=== PATIENT | male | born 1950 | race Caucasian/White ===

== ENCOUNTER → 2017-05-09 | Outpatient (CLI) | payer OTHER ==
[~2017-05-09] MED LIST: AMLO2.5C PO; ATEN50TA8 PO; DRV100 PO; FENO48TA9 PO; GLC5 PO; GLCSR500 PO; ISOS30TA3 PO; LISI20TA PO; NRN600 PO; SIMV40TA2 PO
[2017-05-09 12:34] LABS: HEMATOCRIT 39.1 % (42-52); HEMOGLOBIN 13.4 g/dL (14.0-18.0); MEAN CELL VOLUME 93.1 fL (80-100); MEAN CORPUSCULAR HEMOGLOBIN 31.9 pg (25-34); MEAN CORPUSCULAR HGB CONC 34.3 g/dl (32-36); MEAN PLATELET VOLUME 11.4 fL (7.4-10.4); PLATELET COUNT 154 K/uL (130-400); RED CELL DISTRIBUTION WIDTH CV 13.4 % (11.5-14.5); RED CELL DISTRIBUTION WIDTH SD 45.2 fL (36.4-46.3); WHITE BLOOD COUNT 5.61 K/uL (4.8-10.8)
[2017-05-09 13:10] LABS: HEMOGLOBIN A1C 6.6 % (4.5-5.6)
[2017-05-09 13:16] LABS: ALBUMIN 3.8 gm/dl (3.4-5.0); ALT/SGPT 28 U/L (12-78); BLOOD UREA NITROGEN 27 mg/dl (7-18); CALCIUM 9.4 mg/dl (8.5-10.1); CARBON DIOXIDE 24 mmol/L (21-32); CHOLESTEROL 104 mg/dl (0-200); CREATININE 1.23 mg/dl (0.60-1.40); GLUCOSE 175 mg/dl (70-99); POTASSIUM 4.7 mmol/L (3.5-5.1); SODIUM 136 mmol/L (136-145)
[2017-05-09 13:27] LABS: ALKALINE PHOSPHATASE 104 U/L (45-117); AST/SGOT 14 U/L (15-37); LDL CHOLESTEROL CALCULATED 49 mg/dl; TOTAL PROTEIN 7.3 gm/dl (6.4-8.2)
== END | disposition home or self-care (01) ==
LOC: C.LABPBG 07:37
PROVIDERS: ATTEND Family Medicine
DX: E78.00 Pure hypercholesterolemia, unspecified (principal); I25.10 Atherosclerotic heart disease of native coronary artery without angina pectoris; E11.9 Type 2 diabetes mellitus without complications; I10 Essential (primary) hypertension

== ENCOUNTER 2018-05-17 03:26 | Inpatient (IN) ==
[2018-05-17 04:24] LABS: Basophils # (auto) 0.02 K/uL (0-0.2); Basophils % (auto) 0.3 %; Eosinophils # (auto) 0.21 K/uL (0-0.5); Hematocrit (blood only) 29.7 % (42-52); Hemoglobin 9.5 g/dL (14.0-18.0); Immature Granulocytes # (auto) 0.05 K/uL (0.00-0.02); Immature Granulocytes % (auto) 0.7 %; Lymphocytes # (auto) 1.66 K/uL (1.2-3.4); Lymphocytes % (auto) 23.9 %; Mean Corpuscular Volume 88.9 fL (80-100); Mean Platelet Volume 10.5 fL (7.4-10.4); Monocytes # (auto) 0.78 K/uL (0.11-0.59); Monocytes % (auto) 11.2 %; Neutrophils # (auto) 4.22 K/uL (1.4-6.5); Neutrophils % (auto) 60.9 %; Platelet Count 209 K/uL (130-400); RDW Standard Deviation 54.1 fL (36.4-46.3); Red Blood Count 3.34 M/uL (4.7-6.1); White Blood Count 6.94 K/uL (4.8-10.8)
[2018-05-17 04:32] LABS: Alanine Aminotransferase 12 U/L (12-78); Albumin Level 3.2 gm/dl (3.4-5.0); Aspartate Aminotransferase 12 U/L (15-37); BUN Creatinine Ratio 12.8 (10-20); Blood Urea Nitrogen 20 mg/dl (7-18); Calcium 8.9 mg/dl (8.5-10.1); Carbon Dioxide 22 mmol/L (21-32); Chloride 105 mmol/L (98-107); Creatinine Clr Calc Pharmacy 46.7 ml/min; Est GFR (African American) 52.6; Est GFR (Non-African American) 45.4; Glucose 216 mg/dl (70-99); Magnesium 1.7 mg/dl (1.8-2.4); Potassium 4.5 mmol/L (3.5-5.1); Sodium 134 mmol/L (136-145)
[2018-05-17 04:35] LABS: INR 1.2 (0.9-1.1); Partial Thromboplastin Time 27.7 Seconds (21.0-31.0); Prothrombin Time 12.4 Seconds (9.0-12.0)
[2018-05-17 04:37] LABS: Albumin Globulin Ratio 0.6 (0.9-2); Alkaline Phosphatase 147 U/L (45-117); Bilirubin,Total 0.5 mg/dl (0.2-1); Globulin 5.2 gm/dl (2.5-4.0); Total Protein 8.4 gm/dl (6.4-8.2); Troponin I < 0.015 ng/ml (0-0.045)
--- NOTE | 2018-05-17 06:48 | XRay Report ---
XR chest 1V portable CLINICAL HISTORY: Shortness of breath. COMPARISON STUDY: No previous studies for comparison. FINDINGS: There are median sternotomy wires and mediastinal surgical post. A 2.8 cm sclerotic lesion with narrow zone of transition within the proximal left humerus is indeterminate but probably benign. There is mild cardiomegaly without evidence for pulmonary edema. There is no pneumothorax or pleural effusion. No consolidation is identified. IMPRESSION: No acute cardiopulmonary findings. Electronically signed by: Allan Berrios M.D. 05/17/2018 6:47 AM
--- NOTE | 2018-05-17 07:00 | History & Physical Report ---
Date of Service May 17, 2018 Assessment & Plan (1) Right sided weakness: Right-sided weakness/left parietal lobe lesion-- The patient will be admitted to telemetry for serial cardiac enzymes, serial EKG's, cardiac rhythm monitoring and a 2-D echocardiogram with Dopplers. CT of the head without contrast, as read by [facility] as acute/subacute infarct versus underlying tumor with inability to rule out bleed into the tumor, all with surrounding cerebral edema. CKD limits use of dye. We will order MRI brain without contrast, and MRA of head and neck without contrast. Will gently rehydrate with IV fluids, and if creatinine improves enough will add dye testing later on. Case discussed with neurologist Dr. Wells, who will be consulted. Neurochecks per protocol. Aspirin 81 mg daily. Stroke protocol order set not initiated, as it is unclear whether this is a true stroke versus underlying tumor with surrounding edema. PT/OT will be consulted. Present on Admission?: Yes (2) 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: See above. Present on Admission?: Yes (3) Hypertension: Medications listed on profile include carvedilol 25 mg p.o. every morning, diltiazem 120 mg p.o. every morning and lisinopril 20 mg p.o. every afternoon. For now change carvedilol to 12.5 mg p.o. twice daily, hold diltiazem and lisinopril. Present on Admission?: Yes (4) Diabetes mellitus: Hold Januvia and metformin. Placed on Accu-Cheks before meals and at bedtime with NovoLog coverage for scale Present on Admission?: Yes (5) Hyperlipidemia LDL goal <70: Continue atorvastatin 40 mg in evening. Check a fasting lipid panel Present on Admission?: Yes (6) Acute kidney injury: Creatinine 1.54 upon admission, with range 1.23-2.12. Present on Admission?: Yes (7) Anemia: Receiving injections in outpatient setting with Dr. Lara. Present on Admission?: Yes History of Present Illness Chief Complaint: The patient presents to the emergency department with complaint of right hand and leg numbness and weakness worsening over the past 2 days. Primary Care Provider: Valerie Mullins, The patient is a 67-year-old male who presents to the emergency department with complaint of the development of right hand numbness 2 days ago, followed by weakness in that hand, and inability to write. The following day began to develop balance issues when trying to walk, with leaning toward the right, and felt as though his right leg was weak compared to left. He has had no difficulty with swallowing or speech, no difficulty with memory or recall, no difficulty with higher thought processes. He has never had symptoms like these in the past. He reports that he sees a physician at [facility], and yearly has tests of his carotid arteries and test for peripheral arterial disease, and all have been normal. He does not report that he gets periodic injections with Dr. Lara for anemia. Allergies Allergy/AdvReac Type Severity Reaction Status Date / Time Penicillins Allergy Intermediate HIVES Verified 05/25/18 10:46 Home Medications Home Medications Medication Instructions Recorded Confirmed Type Januvia 50 mg PO QAM 05/17/18 05/25/18 History atorvastatin 40 mg PO QPM 05/17/18 05/25/18 History lisinopril 20 mg PO QPM 05/17/18 05/25/18 History carvedilol 12.5 mg PO BID #0 tab 05/19/18 05/25/18 Rx dexamethasone [Decadron] 4 mg PO QID #56 tab 05/19/18 05/25/18 Rx insulin glargine [Lantus Solostar 30 unit SC QAM #15 ml 05/19/18 05/25/18 Rx U-100 Insulin] pantoprazole 40 mg PO DAILY #30 tab 05/19/18 05/25/18 Rx pen needle, diabetic [Pen Needle] #30 ea 05/19/18 05/25/18 Rx Past Med/Surg History Medical History Acute kidney injury Anemia Anemia Brain lesion Cancer Cerebrovascular accident R sided weakness more likely due to swelling from brain tumors Coronary artery disease Diabetes Dyslipidemia Esophageal mass HTN (hypertension) Heart disease Surgical History S/P triple vessel bypass Family History Other Cancer Diabetes Heart disease Hypertension Kidney disease Seizure Social History Preferred Language: Faroese Beliefs That Will Affect Care: None marital status: Current Living Situation: Spouse current occupational status: retired Feels Safe at Home: Yes Smoking Status: Never smoker Hx Alcohol Use: No Hx Substance Use: No Review of Systems The patient denies chest pain, palpitations, shortness of breath, dyspnea on exertion, cough, lower extremity swelling, sore throat, fevers, chills, sweats, weight change, fatigue, nausea, vomiting, diarrhea , constipation, abdominal pain, pelvic pain, blood in urine or stool, dysuria, urinary frequency or urgency, lightheadedness, dizziness, headache, memory loss, loss of consciousness, rash, abnormal bruising or bleeding, focal weakness, numbness or tingling in left arm or leg, generalized arthralgias or myalgias, back or neck pain, or night sweats. The review of systems is otherwise negative other than for that already noted above, and at least 10 systems have been reviewed. Physical Exam Vital Signs (Past 24 Hours): Last Vital Signs Temp 36.4 C L 05/17/18 03:29 Pulse 79 05/17/18 06:01 Resp 19 05/17/18 06:01 BP 152/86 H 05/17/18 06:01 Pulse Ox 99 05/17/18 06:01 Physical Exam: The patient is awake, alert and oriented 3, well developed and well nourished, normocephalic and atraumatic, lying in bed and in no acute distress. HEENT--PERRL, EOMI, mucous membranes and oropharynx dry. Neck--supple. No JVD. No bruits. Thyroid normal, trachea midline, no adenopathy. Heart--normal S1 and S2. No murmurs, rubs or gallops. Lungs--clear bilaterally, no respiratory distress, no accessory muscle use. Abdomen--normal bowel sounds and soft. Nontender. Nondistended, no hernias or masses, no organomegaly. Extremities--no cyanosis or clubbing. No edema. There are good distal pulses b/l. Dermatologic--normal skin turgor, normal color, no abnormal lymph nodes, no rash. Neurologic--cranial nerves II through XII grossly intact. Decreased counter maker strength on the right compared to left, and a right-handed individual. Decreased sensation right hand and forearm compared to left. Right lower extremity 4+/5, left lower extremity 5/5 motor strength. Rheumatologic--normal range of motion. Psychiatric--normal affect. Results & Data Laboratory Results Laboratory Results WBC 6.94 K/uL (4.8-10.8) 05/17/18 03:50 RBC 3.34 M/uL (4.7-6.1) L 05/17/18 03:50 Hgb 9.5 g/dL (14.0-18.0) L 05/17/18 03:50 Hct 29.7 % (42-52) L 05/17/18 03:50 MCV 88.9 fL (80-100) 05/17/18 03:50 MCH 28.4 pg (25-34) 05/17/18 03:50 MCHC 32.0 g/dL (32-36) 05/17/18 03:50 RDW Std Deviation 54.1 fL (36.4-46.3) H 05/17/18 03:50 RDW Coeff of Jeannette 17.0 % (11.5-14.5) H 05/17/18 03:50 Plt Count 209 K/uL (130-400) 05/17/18 03:50 MPV 10.5 fL (7.4-10.4) H 05/17/18 03:50 Immature Gran % (Auto) 0.7 % 05/17/18 03:50 Neut % (Auto) 60.9 % 05/17/18 03:50 Lymph % (Auto) 23.9 % 05/17/18 03:50 [place] % (Auto) 11.2 % 05/17/18 03:50 Eos % (Auto) 3.0 % 05/17/18 03:50 Baso % (Auto) 0.3 % 05/17/18 03:50 Immature Gran # (Auto) 0.05 K/uL (0.00-0.02) H 05/17/18 03:50 Neut # (Auto) 4.22 K/uL (1.4-6.5) 05/17/18 03:50 Lymph # (Auto) 1.66 K/uL (1.2-3.4) 05/17/18 03:50 [place] # (Auto) 0.78 K/uL (0.11-0.59) H 05/17/18 03:50 Eos # (Auto) 0.21 K/uL (0-0.5) 05/17/18 03:50 Baso # (Auto) 0.02 K/uL (0-0.2) 05/17/18 03:50 PT 12.4 Seconds (9.0-12.0) H 05/17/18 03:50 INR 1.2 (0.9-1.1) H 05/17/18 03:50 APTT 27.7 Seconds (21.0-31.0) 05/17/18 03:50 PTT Ratio 1.0 05/17/18 03:50 Sodium 134 mmol/L (136-145) L 05/17/18 03:50 Potassium 4.5 mmol/L (3.5-5.1) 05/17/18 03:50 Chloride 105 mmol/L (98-107) 05/17/18 03:50 Carbon Dioxide 22 mmol/L (21-32) 05/17/18 03:50 Anion Gap 7.0 (3-11) 05/17/18 03:50 BUN 20 mg/dl (7-18) H 05/17/18 03:50 Creatinine 1.54 mg/dl (0.6-1.4) H 05/17/18 03:50 Est Cr Clr Drug Dosing 46.7 ml/min 05/17/18 03:50 Est GFR ( Amer) 52.6 05/17/18 03:50 Est GFR (Non-Af Amer) 45.4 05/17/18 03:50 BUN/Creatinine Ratio 12.8 (10-20) 05/17/18 03:50 Glucose 216 mg/dl (70-99) H 05/17/18 03:50 POC Glucose 209 (70-99) H 05/17/18 04:22 Calcium 8.9 mg/dl (8.5-10.1) 05/17/18 03:50 Magnesium 1.7 mg/dl (1.8-2.4) L 05/17/18 03:50 Total Bilirubin 0.5 mg/dl (0.2-1) 05/17/18 03:50 AST 12 U/L (15-37) L 05/17/18 03:50 ALT 12 U/L (12-78) 05/17/18 03:50 Alkaline Phosphatase 147 U/L (45-117) H 05/17/18 03:50 Troponin I < 0.015 ng/ml (0-0.045) 05/17/18 03:50 Total Protein 8.4 gm/dl (6.4-8.2) H 05/17/18 03:50 Albumin 3.2 gm/dl (3.4-5.0) L 05/17/18 03:50 Globulin 5.2 gm/dl (2.5-4.0) H 05/17/18 03:50 Albumin/Globulin Ratio 0.6 (0.9-2) L 05/17/18 03:50 Blood Type O Positive 05/17/18 04:23 Antibody Screen NEGATIVE 05/17/18 04:[address] of head without contrast showed a relatively large area of hypodensity sugge stive of edema centered at the left parietal lobe extending towards the vertex. Differential would include underlying tumor or acute/subacute infarct. Hyperdense focus along the cortex superiorly in this area measures 9 mm on image 27 series 2. Collectively, findings could represent a tumor focus, although cannot exclude hemorrhage into the tumor. MRI may be useful for further clarification. No midline shift or hydrocephalus. Sinuses and mastoids are clear. No acute calvarial fracture. Code Status & VTE Plan Code Status Full code VTE Prophylaxis Plan VTE Prophylaxis will be ordered: Yes
--- NOTE | 2018-05-17 07:37 | CT Scan Report ---
CT OF THE HEAD WITHOUT CONTRAST CLINICAL HISTORY: Stroke evaluation. Right-sided weakness. COMPARISON STUDY: Sinus CT September 23, 2008. CT DOSE: 614.27 mGy.cm TECHNIQUE: Helical axial images of the head were obtained without IV contrast. Automated exposure con trol was utilized for the study. A dose lowering technique was utilized adhering to the principles o f ALARA. FINDINGS: Note is made of extensive vasogenic edema within the left frontoparietal convexity. There i s an associated 9 mm hyperdense focus within the superior left frontal lobe shown on axial image 27. There is mild mass effect without definite midline shift. There may be an additional 9 mm hyperdense focus within the right cerebellar hemisphere with associated vasogenic edema. There is suspected slig ht effacement of the fourth ventricle. There is no hydrocephalus. The basilar cisterns are patent. Ad ditional white matter hypodensities favor small vessel disease. No significant calvarial abnormalitie s are identified. Visualized portions of the sinuses and mastoid air cells are clear. IMPRESSION: Extensive vasogenic edema within the left frontoparietal convexity with an associated 9 mm hyperdense focus. Suspected additional 9 mm hyperdense focus within the right cerebellar hemisphere with vasoge manuel edema and slight effacement of the fourth ventricle without hydrocephalus. 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 An MRI of the brain with and without contrast is recommended. Electronically signed by: Allan Berrios M.D. 05/17/2018 7:35 AM
--- NOTE | 2018-05-17 07:55 | Emergency Department Note ---
Entered by Michelle Laurent acting as a scribe for History of Present Illness General Chief complaint: Stroke/CVA Symptoms Stated complaint: NUMBNESS ON RIGHT SIDE,CAN'T WALK STEADY Time Seen by Provider: 05/17/18 04:01 Source: patient History of Present Illness Onset (ago): day(s) (a few days ago) Location: head Pain Consistency: + other (worsening) Maximum Pain Intensity: 0 Quality: + other (stroke like symptoms) Associated symptoms: + denies other symptoms (abdominal pain), + weakness and + other (difficulty walking, feeling shaky) The patient is a 67 year old male who presents to the Emergency Room with complaints of worsening stroke like symptoms starting a few days ago. The patient states that a month and a half ago he was in [place] trying to sign his name when they were leaving the hotel, but struggled to do so. He states that when he came home he followed up with his chiropractor who believed that it was due to a pinched nerve in his neck. He notes that he also mentioned it to his PCP who set him up with an appointment with neurology on June 07. He states that since then it seemed to get better. The patients states that over the last few days she noticed he was having difficulty getting up off the couch. The patient states that he noticed this somewhat. He states that yesterday morning he noticed that he was really having a hard time walking when he got out of bed because his right leg was weak. He states that when he would try to walk he had to use his cane, which is not normal for him and he felt shaky. He states that it seemed to get better throughout the day, but by the afternoon/evening it became worse again. The patient states that he also noticed the weakness in his right arm. He notes that he could not hold anything in his right hand. He reports that 2 hours ago when he got up to go to the bathroom he was unable to do so since he was so weak. The patient denies a history of a stroke and abdominal pain. Home Medications Home Medications Medication Instructions Recorded Confirmed Type atorvastatin 40 mg PO QPM 05/17/18 05/17/18 History carvedilol 25 mg PO QAM 05/17/18 05/17/18 History diltiazem HCl 120 mg PO QAM 05/17/18 05/17/18 History lisinopril 20 mg PO QPM 05/17/18 05/17/18 History metformin 1,000 mg PO BIDM 05/17/18 05/17/18 History sitagliptin [Januvia] 50 mg PO QAM 05/17/18 05/17/18 History Allergies Allergy/AdvReac Type Severity Reaction Status Date / Time Penicillins Allergy Intermediate HIVES Verified 05/17/18 11:01 Past Med/Surg History Medical History Anemia Diabetes HTN (hypertension) Heart disease Surgical History S/P triple vessel bypass Family History Other Cancer Diabetes Heart disease Hypertension Kidney disease Seizure Social History Communication Ability: Effective Beliefs That Will Affect Care: None marital status: Current Living Situation: Spouse current occupational status: retired Other Information That Helps Us Care for You: No Feels Safe at Home: Yes Smoking Status: Former smoker Hx Alcohol Use: No Hx Substance Use: No Review of Systems See HPI for pertinent positives & negatives. and A total of 10 systems reviewed and were otherwise negative Physical Exam Vital Signs Vital Signs - 24 hr 05/17/18 03:29 05/17/18 03:47 05/17/18 03:54 Temperature 36.4 C L Temperature Source Oral Sepsis Recent Fever Within 48 Hours No Sepsis Action Taken by Nursing No Action Required Pulse Rate 81 76 77 Pulse Rate [Left Finger] Pulse Rate from SpO2 Sensor 77 Pulse Rhythm [Left Finger] Pulse Strength [Left Finger] Respiratory Rate 18 19 17 Respiratory Effort / Characteristics Respiratory Depth Normal Respiratory Pattern Blood Pressure 108/65 119/70 Blood Pressure [Left Arm] Blood Pressure [Right Arm] Blood Pressure Mean 79 86 Blood Pressure Mean [Left Arm] Blood Pressure Mean [Right Arm] Blood Pressure Position [Left Arm] Blood Pressure Position [Right Arm] Pulse Oximetry 92 97 Oxygen Delivery Method Room Air 05/17/18 04:00 05/17/18 04:01 05/17/18 04:09 Temperature Temperature Source Sepsis Recent Fever Within 48 Hours Sepsis Action Taken by Nursing Pulse Rate 75 77 Pulse Rate [Left Finger] Pulse Rate from SpO2 Sensor 71 79 Pulse Rhythm [Left Finger] Pulse Strength [Left Finger] Respiratory Rate 18 23 Respiratory Effort / Characteristics Respiratory Depth Respiratory Pattern Blood Pressure 117/71 Blood Pressure [Left Arm] Blood Pressure [Right Arm] Blood Pressure Mean 86 Blood Pressure Mean [Left Arm] Blood Pressure Mean [Right Arm] Blood Pressure Position [Left Arm] Blood Pressure Position [Right Arm] Pulse Oximetry 96 97 96 Oxygen Delivery Method Room Air 05/17/18 04:40 05/17/18 04:41 05/17/18 04:42 Temperature Temperature Source Sepsis Recent Fever Within 48 Hours Sepsis Action Taken by Nursing Pulse Rate 75 77 74 Pulse Rate [Left Finger] Pulse Rate from SpO2 Sensor 75 77 74 Pulse Rhythm [Left Finger] Pulse Strength [Left Finger] Respiratory Rate 23 17 17 Respiratory Effort / Characteristics Respiratory Depth Respiratory Pattern Blood Pressure 127/77 Blood Pressure [Left Arm] Blood Pressure [Right Arm] Blood Pressure Mean 93 Blood Pressure Mean [Left Arm] Blood Pressure Mean [Right Arm] Blood Pressure Position [Left Arm] Blood Pressure Position [Right Arm] Pulse Oximetry 98 99 98 Oxygen Delivery Method 05/17/18 05:01 05/17/18 05:31 05/17/18 06:01 Temperature Temperature Source Sepsis Recent Fever Within 48 Hours Sepsis Action Taken by Nursing Pulse Rate 73 75 79 Pulse Rate [Left Finger] Pulse Rate from SpO2 Sensor 74 73 79 Pulse Rhythm [Left Finger] Pulse Strength [Left Finger] Respiratory Rate 18 19 19 Respiratory Effort / Characteristics Respiratory Depth Respiratory Pattern Blood Pressure 103/48 L 138/73 152/86 H Blood Pressure [Left Arm] Blood Pressure [Right Arm] Blood Pressure Mean 66 94 108 Blood Pressure Mean [Left Arm] Blood Pressure Mean [Right Arm] Blood Pressure Position [Left Arm] Blood Pressure Position [Right Arm] Pulse Oximetry 98 99 99 Oxygen Delivery Method 05/17/18 06:31 05/17/18 07:02 05/17/18 09:35 Temperature 36.9 C Temperature Source Oral Sepsis Recent Fever Within 48 Hours Sepsis Action Taken by Nursing Pulse Rate 73 74 Pulse Rate [Left Finger] 83 Pulse Rate from SpO2 Sensor 74 Pulse Rhythm [Left Finger] Regular Pulse Strength [Left Finger] Normal Respiratory Rate 17 16 18 Respiratory Effort / Characteristics Non-Labored Spontaneous Respiratory Depth Normal Respiratory Pattern Regular Blood Pressure 131/80 141/75 H Blood Pressure [Left Arm] 116/97 Blood Pressure [Right Arm] Blood Pressure Mean 97 Blood Pressure Mean [Left Arm] 103 Blood Pressure Mean [Right Arm] Blood Pressure Position [Left Arm] Lying Blood Pressure Position [Right Arm] Pulse Oximetry 99 100 99 Oxygen Delivery Method Room Air Room Air 05/17/18 10:43 05/17/18 12:00 05/17/18 14:30 Temperature 36.7 C 36.8 C Temperature Source Oral Oral Sepsis Recent Fever Within 48 Hours Sepsis Action Taken by Nursing Pulse Rate 81 Pulse Rate [Left Finger] 78 78 Pulse Rate from SpO2 Sensor Pulse Rhythm [Left Finger] Regular Pulse Strength [Left Finger] Normal Respiratory Rate 17 18 Respiratory Effort / Characteristics Non-Labored Spontaneous Respiratory Depth Normal Respiratory Pattern Regular Blood Pressure Blood Pressure [Left Arm] 138/74 Blood Pressure [Right Arm] 127/82 Blood Pressure Mean Blood Pressure Mean [Left Arm] 95 Blood Pressure Mean [Right Arm] 97 Blood Pressure Position [Left Arm] Sitting Blood Pressure Position [Right Arm] Lying Pulse Oximetry 97 96 Oxygen Delivery Method Room Air Room Air 05/17/18 20:00 Temperature 36.6 C Temperature Source Oral Sepsis Recent Fever Within 48 Hours Sepsis Action Taken by Nursing Pulse Rate Pulse Rate [Left Finger] 88 Pulse Rate from SpO2 Sensor Pulse Rhythm [Left Finger] Regular Pulse Strength [Left Finger] Normal Respiratory Rate 18 Respiratory Effort / Characteristics Non-Labored Respiratory Depth Normal Respiratory Pattern Blood Pressure Blood Pressure [Left Arm] Blood Pressure [Right Arm] 135/80 Blood Pressure Mean Blood Pressure Mean [Left Arm] Blood Pressure Mean [Right Arm] 98 Blood Pressure Position [Left Arm] Blood Pressure Position [Right Arm] Lying Pulse Oximetry 96 Oxygen Delivery Method HEENT: Head - normocephalic and atraumatic. Pupils are equal, round, and reactive to light. Extraocular eye muscles are intact and sclera are anicteric. Ears - bilaterally patent canals with noninjected tympanic membranes and no evidence of hemotympanum. Nose - moist nasal mucosa without discharge. Mouth - moist buccal mucosa. Oropharynx is nonerythematous and there is no tonsillar exudate or edema noted. Neck: Supple; no JVD, nuchal rigidity, cervical lymphadenopathy, or auscultated bruits. Heart: Regular rate and rhythm. There is a normal S1 and S2 with no murmurs, clicks, or gallops appreciated. Lungs: Clear to auscultation bilaterally with no wheezes, rales, or rhonchi. Abdomen: Soft, completely nontender, nondistended, with good bowel sounds. There are no palpable pulsatile masses or hepatosplenomegaly. There is no guarding, rigidity, or rebound noted. Extremities: No evidence of cyanosis, clubbing, or edema. There are easily palpable peripheral pulses. Neuro: The patient is awake and alert, oriented to day, time, and place. 4/5 muscle strength at the right shoulder and right bicep. Weakness with right pedal push and pull. Muscle strength was 4/5 of the right hip. Muscle strength in all other testing was 5/5. Pronator drift in the right arm with testing. Positive cerebellar findings. Course 0404: Past medical records reviewed. The patient was evaluated in room C2A, and a complete history and physical examination were performed. An IV lock was initiated and labs were drawn as above. A twelve-lead EKG was obtained. The patient went for a stat CT scan of the brain. 0518: I reevaluated the patient and updated him and his on his test results explaining that he would need further neuroimaging to rule out the possibility of a mass versus acute on subacute infarct. I discussed the treatment plan with him. He verbally agrees and understands. 0602: I reviewed the patient's case with Dr. Marya GROVER Hospitalist. He will evaluate the patient for further management. Consultations Consultation #1: I reviewed the patient's case with Dr. Marya GROVER Hospitalist. He will evaluate the patient for further management. Time: 06:02 Administered Medications Atorvastatin Calcium (Lipitor) 40 mg PO QPM [facility] Stop: 06/16/18 20:59 Last Admin: 05/17/18 20:59 Dose: 40 mg Documented by: [id number] Carvedilol (Coreg) 12.5 mg PO BID [facility] Stop: 06/16/18 09:27 Last Admin: 05/17/18 20:58 Dose: 12.5 mg Documented by: [id number] Admin: 05/17/18 10:14 Dose: 12.5 mg Documented by: [id number] Gadobutrol (Gadavist 30ml) 8.5 ml IV ONCE PRN PRN Reason: Interaction Checking Stop: 05/21/18 09:22 Last Admin: 05/17/18 09:24 Dose: 8.5 ml Documented by: [id number] Pantoprazole Sodium 40 mg/ (Syringe) 10 mls @ 5 mls/min IV DAILY@1100 [facility] Stop: 06/16/18 10:59 Last Admin: 05/17/18 10:14 Dose: 5 mls/min Documented by: [id number] Sodium Chloride (Nss 1000ml) 1,000 mls @ 100 mls/hr IV .Q10H [facility] Stop: 06/16/18 09:27 Last Admin: 05/17/18 20:58 Dose: 100 mls/hr Documented by: [id number] Infusion: 05/17/18 20:09 Dose: 100 mls/hr Documented by: [id number] Admin: 05/17/18 10:09 Dose: 100 mls/hr Documented by: [id number] Dexamethasone Sodium Phosphate (4 mg/ Syringe) 1 mls @ 1 mls/min IV Q8 [facility] Stop: 06/16/18 13:59 Last Admin: 05/17/18 21:00 Dose: 1 mls/min Documented by: [id number] Admin: 05/17/18 16:28 Dose: 1 mls/min Documented by: [id number] Insulin Aspart (Novolog Flexpen) 0 units SC ACHS [facility] Stop: 06/16/18 09:27 Last Admin: 05/17/18 21:06 Dose: 7 units Documented by: [id number] Cosigned by: [id number] Admin: 05/17/18 17:03 Dose: 14 units Documented by: [id number] Cosigned by: [id number] Admin: 05/17/18 11:50 Dose: 6 units Documented by: [id number] Cosigned by: [id number] Admin: 05/17/18 10:13 Dose: 2 units Documented by: [id number] Cosigned by: [id number] Insulin Glargine (Lantus Solostar Pen) 10 units SC BID [facility] Stop: 06/16/18 20:59 Last Admin: 05/17/18 21:06 Dose: 10 units Documented by: [id number] Cosigned by: [id number] Ioversol (Optiray 320 100ml) 94 ml IV ONCE PRN PRN Reason: Interaction Checking Stop: 05/21/18 12:06 Last Admin: 05/17/18 12:07 Dose: 94 ml Documented by: [id number] Discontinued Medications Dexamethasone Sodium Phosphate (6 mg/ Syringe) 1.5 mls @ 1 mls/min IV ONE ONE Stop: 05/17/18 10:31 Last Admin: 03/24/19 10:59 Dose: 1 mls/min Documented by: [id number] Insulin Glargine (Lantus Solostar Pen) 10 units SC QAM [facility] Stop: 06/16/18 10:29 Last Admin: 05/17/18 11:02 Dose: 10 units Documented by: [id number] Cosigned by: [id number] Morphine Sulfate (Morphine Sulfate) 4 mg IV NOW STA Stop: 05/17/18 08:27 Last Admin: 05/17/18 08:26 Dose: 4 mg Documented by: [id number] Morphine Sulfate (Morphine Sulfate) Confirm Administered Dose 4 mg .ROUTE .STK- MED ONE Stop: 05/17/18 08:32 Last Admin: 05/17/18 10:09 Dose: Not Given Documented by: [id number] Medical Decision Making Differential Diagnosis Differential diagnoses include CVA, TIA, intracranial hemorrhage, other intracranial process, neuropathy, myasthenia gravis. Medical Records Attestation: I reviewed the patient's medical records. Home Medications Current Medication List: was personally reviewed by me Laboratory Data Attestation: I reviewed the patient's lab results. Result diagrams: 05/17/18 03:50 05/17/18 03:50 Lab Results 05/17/18 05/17/18 05/17/18 Range/Units 03:50 03:50 03:50 WBC 6.94 (4.8-10.8) K/uL RBC 3.34 L (4.7-6.1) M/uL Hgb 9.5 L (14.0-18.0) g/dL Hct 29.7 L (42-52) % MCV 88.9 (80-100) fL MCH 28.4 (25-34) pg MCHC 32.0 (32-36) g/dL RDW Std Deviation 54.1 H (36.4-46.3) fL RDW Coeff of Jeannette 17.0 H (11.5-14.5) % Plt Count 209 (130-400) K/uL MPV 10.5 H (7.4-10.4) fL Immature Gran % (Auto) 0.7 % Neut % (Auto) 60.9 % Lymph % (Auto) 23.9 % [place] % (Auto) 11.2 % Eos % (Auto) 3.0 % Baso % (Auto) 0.3 % Immature Gran # (Auto) 0.05 H (0.00-0.02) K/uL Neut # (Auto) 4.22 (1.4-6.5) K/uL Lymph # (Auto) 1.66 (1.2-3.4) K/uL [place] # (Auto) 0.78 H (0.11-0.59) K/uL Eos # (Auto) 0.21 (0-0.5) K/uL Baso # (Auto) 0.02 (0-0.2) K/uL PT 12.4 H (9.0-12.0) Seconds INR 1.2 H (0.9-1.1) APTT 27.7 (21.0-31.0) Seconds PTT Ratio 1.0 Sodium 134 L (136-145) mmol/L Potassium 4.5 (3.5-5.1) mmol/L Chloride 105 (98-107) mmol/L Carbon Dioxide 22 (21-32) mmol/L Anion Gap 7.0 (3-11) BUN 20 H (7-18) mg/dl Creatinine 1.54 H (0.6-1.4) mg/dl Est Cr Clr Drug Dosing 46.7 ml/min Est GFR ( Amer) 52.6 Est GFR (Non-Af Amer) 45.4 BUN/Creatinine Ratio 12.8 (10-20) Glucose 216 H (70-99) mg/dl POC Glucose (70-99) Calcium 8.9 (8.5-10.1) mg/dl Magnesium 1.7 L (1.8-2.4) mg/dl Total Bilirubin 0.5 (0.2-1) mg/dl AST 12 L (15-37) U/L ALT 12 (12-78) U/L Alkaline Phosphatase 147 H (45-117) U/L Troponin I < 0.015 (0-0.045) ng/ml Total Protein 8.4 H (6.4-8.2) gm/dl Albumin 3.2 L (3.4-5.0) gm/dl Globulin 5.2 H (2.5-4.0) gm/dl Albumin/Globulin Ratio 0.6 L (0.9-2) Triglycerides (0-150) mg/dl Cholesterol (0-200) mg/dl LDL Cholesterol, Calc mg/dl VLDL Cholesterol, Calc mg/dl HDL Cholesterol mg/dl Cholesterol/HDL Ratio Nasal Screen MRSA (PCR) (Negative) Hepatitis C Ab Screen (Neg) Blood Type Antibody Screen 05/17/18 05/17/18 05/17/18 Range/Units 03:50 04:22 04:23 WBC (4.8-10.8) K/uL RBC (4.7-6.1) M/uL Hgb (14.0-18.0) g/dL Hct (42-52) % MCV (80-100) fL MCH (25-34) pg MCHC (32-36) g/dL RDW Std Deviation (36.4-46.3) fL RDW Coeff of Jeannette (11.5-14.5) % Plt Count (130-400) K/uL MPV (7.4-10.4) fL Immature Gran % (Auto) % Neut % (Auto) % Lymph % (Auto) % [place] % (Auto) % Eos % (Auto) % Baso % (Auto) % Immature Gran # (Auto) (0.00-0.02) K/uL Neut # (Auto) (1.4-6.5) K/uL Lymph # (Auto) (1.2-3.4) K/uL [place] # (Auto) (0.11-0.59) K/uL Eos # (Auto) (0-0.5) K/uL Baso # (Auto) (0-0.2) K/uL PT (9.0-12.0) Seconds INR (0.9-1.1) APTT (21.0-31.0) Seconds PTT Ratio Sodium (136-145) mmol/L Potassium (3.5-5.1) mmol/L Chloride (98-107) mmol/L Carbon Dioxide (21-32) mmol/L Anion Gap (3-11) BUN (7-18) mg/dl Creatinine (0.6-1.4) mg/dl Est Cr Clr Drug Dosing ml/min Est GFR ( Amer) Est GFR (Non-Af Amer) BUN/Creatinine Ratio (10-20) Glucose (70-99) mg/dl POC Glucose 209 H (70-99) Calcium (8.5-10.1) mg/dl Magnesium (1.8-2.4) mg/dl Total Bilirubin (0.2-1) mg/dl AST (15-37) U/L ALT (12-78) U/L Alkaline Phosphatase (45-117) U/L Troponin I (0-0.045) ng/ml Total Protein (6.4-8.2) gm/dl Albumin (3.4-5.0) gm/dl Globulin (2.5-4.0) gm/dl Albumin/Globulin Ratio (0.9-2) Triglycerides (0-150) mg/dl Cholesterol (0-200) mg/dl LDL Cholesterol, Calc mg/dl VLDL Cholesterol, Calc mg/dl HDL Cholesterol mg/dl Cholesterol/HDL Ratio Nasal Screen MRSA (PCR) (Negative) Hepatitis C Ab Screen Neg (Neg) Blood Type O Positive Antibody Screen NEGATIVE 05/17/18 05/17/18 05/17/18 Range/Units 09:30 09:39 10:12 WBC (4.8-10.8) K/uL RBC (4.7-6.1) M/uL Hgb (14.0-18.0) g/dL Hct (42-52) % MCV (80-100) fL MCH (25-34) pg MCHC (32-36) g/dL RDW Std Deviation (36.4-46.3) fL RDW Coeff of Jeannette (11.5-14.5) % Plt Count (130-400) K/uL MPV (7.4-10.4) fL Immature Gran % (Auto) % Neut % (Auto) % Lymph % (Auto) % [place] % (Auto) % Eos % (Auto) % Baso % (Auto) % Immature Gran # (Auto) (0.00-0.02) K/uL Neut # (Auto) (1.4-6.5) K/uL Lymph # (Auto) (1.2-3.4) K/uL [place] # (Auto) (0.11-0.59) K/uL Eos # (Auto) (0-0.5) K/uL Baso # (Auto) (0-0.2) K/uL PT (9.0-12.0) Seconds INR (0.9-1.1) APTT (21.0-31.0) Seconds PTT Ratio Sodium (136-145) mmol/L Potassium (3.5-5.1) mmol/L Chloride (98-107) mmol/L Carbon Dioxide (21-32) mmol/L Anion Gap (3-11) BUN (7-18) mg/dl Creatinine (0.6-1.4) mg/dl Est Cr Clr Drug Dosing ml/min Est GFR ( Amer) Est GFR (Non-Af Amer) BUN/Creatinine Ratio (10-20) Glucose (70-99) mg/dl POC Glucose 196 H (70-99) Calcium (8.5-10.1) mg/dl Magnesium (1.8-2.4) mg/dl Total Bilirubin (0.2-1) mg/dl AST (15-37) U/L ALT (12-78) U/L Alkaline Phosphatase (45-117) U/L Troponin I < 0.015 (0-0.045) ng/ml Total Protein (6.4-8.2) gm/dl Albumin (3.4-5.0) gm/dl Globulin (2.5-4.0) gm/dl Albumin/Globulin Ratio (0.9-2) Triglycerides 140 (0-150) mg/dl Cholesterol 122 (0-200) mg/dl LDL Cholesterol, Calc 68 mg/dl VLDL Cholesterol, Calc 28 mg/dl HDL Cholesterol 26 mg/dl Cholesterol/HDL Ratio 5 Nasal Screen MRSA (PCR) Negative (Negative) Hepatitis C Ab Screen (Neg) Blood Type Antibody Screen 05/17/18 05/17/18 05/17/18 Range/Units 11:31 16:02 19:36 WBC (4.8-10.8) K/uL RBC (4.7-6.1) M/uL Hgb (14.0-18.0) g/dL Hct (42-52) % MCV (80-100) fL MCH (25-34) pg MCHC (32-36) g/dL RDW Std Deviation (36.4-46.3) fL RDW Coeff of Jeannette (11.5-14.5) % Plt Count (130-400) K/uL MPV (7.4-10.4) fL Immature Gran % (Auto) % Neut % (Auto) % Lymph % (Auto) % [place] % (Auto) % Eos % (Auto) % Baso % (Auto) % Immature Gran # (Auto) (0.00-0.02) K/uL Neut # (Auto) (1.4-6.5) K/uL Lymph # (Auto) (1.2-3.4) K/uL [place] # (Auto) (0.11-0.59) K/uL Eos # (Auto) (0-0.5) K/uL Baso # (Auto) (0-0.2) K/uL PT (9.0-12.0) Seconds INR (0.9-1.1) APTT (21.0-31.0) Seconds PTT Ratio Sodium (136-145) mmol/L Potassium (3.5-5.1) mmol/L Chloride (98-107) mmol/L Carbon Dioxide (21-32) mmol/L Anion Gap (3-11) BUN (7-18) mg/dl Creatinine (0.6-1.4) mg/dl Est Cr Clr Drug Dosing ml/min Est GFR ( Amer) Est GFR (Non-Af Amer) BUN/Creatinine Ratio (10-20) Glucose (70-99) mg/dl POC Glucose 197 H 268 H 276 H (70-99) Calcium (8.5-10.1) mg/dl Magnesium (1.8-2.4) mg/dl Total Bilirubin (0.2-1) mg/dl AST (15-37) U/L ALT (12-78) U/L Alkaline Phosphatase (45-117) U/L Troponin I (0-0.045) ng/ml Total Protein (6.4-8.2) gm/dl Albumin (3.4-5.0) gm/dl Globulin (2.5-4.0) gm/dl Albumin/Globulin Ratio (0.9-2) Triglycerides (0-150) mg/dl Cholesterol (0-200) mg/dl LDL Cholesterol, Calc mg/dl VLDL Cholesterol, Calc mg/dl HDL Cholesterol mg/dl Cholesterol/HDL Ratio Nasal Screen MRSA (PCR) (Negative) Hepatitis C Ab Screen (Neg) Blood Type Antibody Screen Imaging Data Radiologist's Impression: Radiology results as stated below per my review and the radiologist's interpretation: CT HEAD: Comparison with CT from 09/23/08. Relatively large area of hypodensity suggestive of edema centered at the left parietal lobe extending towards the vertex is identified. Differential would include underlying tumor or acute/subacute infarct. Hyperdense focus along the cortex superiorly in this area measures 9 mm on image 27 series 2. Collectively, findings could represent a tumor focus, although cannot exclude hemorrhage into the tumor; MRI may be useful for further clarification. No midline shift or hydrocephalus. Sinuses and mastoids are clear. No acute calvarial fracture. Radiologist: Pola Garcia MD Study ready at 04:41 and initial results transmitted at 04:50. ECG Data Attestation: I personally reviewed and interpreted this ECG as follows: Indication: weakness Rate (beats per minute): 78 Rhythm: normal sinus Findings: + 1st degree AV block and + ST depression (laterally) Comparison ECG Date: no prior available Blood Pressure Blood Pressure Findings: Normal blood pressure Blood Pressure Disposition: did not require urgent referral MDM Narrative The patient is a 67 year old male who presents to the Emergency Room with complaints of worsening stroke like symptoms starting a few days ago. The patient's initial episode happened at the beginning of March when he had some difficulty using his right hand to write. That seemed to subside but then over the past couple days he noticed increasing weakness in his right arm and right leg. Symptoms became more severe tonight. A stroke protocol was performed here in the emergency department. Last known well time was more than 24 hours ago according to the . CT scan of the brain shows questionable acute on subacute infarct versus a parenchymal mass with surrounding edema. I did not appreciate any hemorrhage on the CAT scan. The patient will require MRI of the brain for further evaluation of these findings. I discussed the case with the [facility] Hospitalist and they will evaluate for further management. Impression & Plan CVA (cerebrovascular accident) Critical Care Time I have personally spent greater than 60 minutes of critical care time in the direct management of this patient. This includes bedside care, interpretation of diagnostic studies, and testing, discussion with consultants, patient, and family members, and other required patient management activities. This 60 minutes is in excess of all separately billable procedures. Critical Care Time: Yes (60 minutes) Total Critical Care Time: 60 Discharge Plan Visit Data *Final* Discharge Date/Time: 05/17/18 07:02 Chief Complaint: Stroke/CVA Symptoms Stated Complaint: NUMBNESS ON RIGHT SIDE,CAN'T WALK STEADY ED Provider: Kaylah Contreras Discharge Problem: CVA (cerebrovascular accident) Patient Disposition: Admitted As Inpatient Discharge Instructions Interventions: ED Discharge Assessment Last Done: 05/17/18 07:02 Discharge Problem: CVA (cerebrovascular accident) Qualifiers: CVA mechanism: unspecified Qualified Code(s): I63.9 - Cerebral infarction, unspecified The scribe's documentation has been prepared under my direction and personally reviewed by me in its entirety. I confirm that the note above accurately reflects all work, treatment, procedures, and medical decision making performed by me.
[2018-05-17] MEDS ORDERED: MoRPHine SULFATE 4 MG/ML 1 ML CARP\\VIAL IV STA (08:26)
[2018-05-17] MEDS ORDERED: MoRPHine SULFATE 4 MG/ML 1 ML CARP\\VIAL ONE (08:31)
[2018-05-17] MEDS ORDERED: GADOBUTROL 30ML VIAL IV PRN (09:23)
[2018-05-17] MEDS ORDERED: GLUCOSE 40% GEL 15 GM TUBE PO PRN (09:28)
[2018-05-17] MEDS ORDERED: DEXTROSE 50% 50 ML SYRINGE IV PRN (09:28)
[2018-05-17] MEDS ORDERED: ONDANSETRON INJ 2 MG/ML 2 ML VIAL IV PRN (09:28)
[2018-05-17] MEDS ORDERED: ACETAMINOPHEN 1000 MG/100 ML IV IV PRN (09:28)
[2018-05-17] MEDS ORDERED: GLUCOSE 10 TABS/TUBE PO PRN (09:28)
[2018-05-17] MEDS ORDERED: CARBOHYDRATES FOR HYPOGLYCEMIA PO PRN (09:28)
[2018-05-17] MEDS ORDERED: GLUCAGON FOR INJ 1 MG VIAL SQ PRN (09:28)
--- NOTE | 2018-05-17 09:52 | Magnetic Resonance Report ---
MRI OF THE BRAIN WITHOUT AND WITH IV CONTRAST CLINICAL HISTORY: parietal infarct, edema, ? tumor/bleed COMPARISON STUDY: Head CT performed earlier today. TECHNIQUE: Utilizing a 1.5 Sophie magnet and dedicated coil, multiplanar, multiecho imaging of the br ain was performed pre and postcontrast administration. IV administration of 8.5 mL of Gadavist contr ast was uneventful. Thin cut T1 post contrast imaging with multiplanar reformats was performed. FINDINGS: There are no foci of restricted diffusion. No acute intracranial hemorrhage is present. Not e is made of a 1 cm enhancing lesion within the left frontoparietal convexity with extensive associat ed vasogenic edema. There is minimal associated mass effect. There is also a 1 cm enhancing lesion wi thin the right cerebellar hemisphere with extensive vasogenic edema. Note is made of a 3 mm right occ ipital lobe lesion on axial image 10 of 23. There may be a 3 mm lesion within left cerebellar hemisph ere. Ventricular system is unremarkable. Basilar cisterns are patent. There are no extra axial collec tions. Additional white matter T2 hyperintense foci reflect small vessel disease. There are no calvar ial lesions. Exam is mildly compromised by motion artifact. IMPRESSION: 1. Multiple enhancing parenchymal lesions including 1 cm lesions within the left frontoparietal conve xity and right cerebellar hemisphere with associated vasogenic edema with mild mass effect. At least 2 smaller lesions. These findings are highly suggestive of metastatic disease. 2. No evidence for acute infarct. Electronically signed by: Allan Berrios M.D. 05/17/2018 9:51 AM
--- NOTE | 2018-05-17 10:00 | Magnetic Resonance Report ---
MRA OF THE INTRACRANIAL CIRCULATION WITHOUT CONTRAST CLINICAL HISTORY: Numbness. Right hand weakness. Possible cerebrovascular accident. COMPARISON STUDY: None. TECHNIQUE: Utilizing a 1.5 Sophie magnet and 3-D [id number]-[id number] technique, unenhanced MRA of the intra cranial circulation was obtained. FINDINGS: Please note that the MRI of the brain will be reported separately. Parenchymal lesions with vasogenic edema are better depicted on that exam. The bilateral M1, M2, A1 and A2 segments are paten t. There is no aneurysm or severe stenosis within the anterior intracranial circulation. The posterio r circulation is largely supplied by the anterior circulation with persistence of the right pos terior cerebral artery and a large left posterior communicating artery. The bilateral posterior cereb ral arteries are patent. The intracranial portions of the bilateral vertebral arteries are diminutive as is the basilar artery. No aneurysm is identified. IMPRESSION: 1. No abnormality within the anterior intracranial circulation. 2. Posterior circulation largely supplied by the anterior circulation, as described above. Diminutive bilateral intracranial portions of the vertebral and basilar arteries which is likely chronic/congen ital. Electronically signed by: Allan Berrios M.D. 05/17/2018 9:59 AM
[2018-05-17] MEDS: SODIUM CHLORIDE 0.9% 1000ML 1,000 ML IV SCH ×2 (10:09→20:58)
[2018-05-17] MEDS: INSULIN ASPART 100 UNITS/ML 3 ML PEN SC SCH ×4 (10:13→21:06)
--- NOTE | 2018-05-17 10:13 | Magnetic Resonance Report ---
MRA OF THE NECK WITHOUT CONTRAST CLINICAL HISTORY: Right hand weakness. Numbness. Possible stroke. COMPARISON STUDY: None. TECHNIQUE: A 1.5 Sophie magnet was utilized. 2-D and 3-D vfzf-[id number] imaging was performed to obt ain unenhanced MRA of the neck. NASCET criteria were utilized to estimate the degree of carotid sten osis. FINDINGS: This exam is compromised given lack of postcontrast imaging. There is moderate to severe st enosis at origin of the right internal carotid artery. There is an additional site of stenosis just d istal to the origin as well. There is no definite stenosis within the cervical portion of the left in ternal carotid artery. The right vertebral artery is diminutive and not well visualized on this exami nation. IMPRESSION: 1. Suboptimal evaluation given lack of postcontrast imaging. Moderate to severe multifocal stenoses w ithin the proximal right internal carotid artery. 2. Diminutive right vertebral artery, not well assessed on this exam. This finding is likely chronic. Electronically signed by: Allan Berrios M.D. 05/17/2018 10:10 AM
[2018-05-17] MEDS: PANTOprazole 40 MG in SYRINGE 0 ML IV SCH (10:14)
[2018-05-17] MEDS: CARVEDILOL 25 MG TAB PO SCH ×2 (10:14→20:58)
[2018-05-17 10:26] LABS: Chol HDL Ratio 5; Cholesterol 122 mg/dl (0-200); HDL Cholesterol 26 mg/dl; LDL Cholesterol Calculated 68 mg/dl; Triglycerides 140 mg/dl (0-150); Troponin I < 0.015 ng/ml (0-0.045); VLDL Cholesterol 28 mg/dl
[2018-05-17] MEDS ORDERED: DEXAMETHASONE SOD PHOSPHATE 6 MG in SYRINGE 0 ML IV ONE (10:30)
[2018-05-17] MEDS ORDERED: INSULIN GLARGINE SOLOSTAR 100 UNITS/ML 3 ML PEN SC SCH (10:30)
--- NOTE | 2018-05-17 10:39 | History & Physical Bridge Note ---
Date of Service May 17, 2018 History & Physical Bridge Note I have examined the patient, reviewed the History & Physical and in the interval since the performance of the History & Physical I have noted the following changes of clinical significance: MRI brain shows two separate 1cm lesions in left frontoparietal lobe and right occipital lobe as well as two smaller lesions findings suggestive of metastatic disease updated the patient and family at the bedside about results he reports that he has had some weight loss and decreased appetite, occasionally gets night sweats he quit smoking 30 years ago he has never had a colonoscopy, only fecal occult blood testing that has been negative normal PSA to his recollection discussed that we will need to obtain CT chest, abdomen and pelvis to look for primary lesion will order Decadron for the cerebral edema will consult Dr. Lara with oncology, he follows with him as outpatient for iron deficiency anemia will follow up with patient later today with updates
[2018-05-17] MEDS ORDERED: IOVERSOL 100ml IV PRN (12:07)
--- NOTE | 2018-05-17 12:27 | CT Scan Report ---
CT OF THE CHEST WITH IV CONTRAST CLINICAL HISTORY: Brain mets, work up COMPARISON STUDY: Chest radiograph performed earlier today. TECHNIQUE: Following IV administration of 94 mL of Optiray-320, helical axial images of the chest we re obtained. Sagittal and coronal reconstructions were viewed as well as maximal intensity projectio ns on an independent 3-D workstation. Automated exposure control was utilized for the study. A dose lowering technique was utilized adhering to the principles of ALARA. CT DOSE: 1212.10 mGy.cm FINDINGS: Note is made of wall thickening of the distal esophagus that extends to the gastroesophage al junction. Several enlarged distal paraesophageal lymph nodes measure up to 1.7 cm. There is a mild ly enlarged left hilar lymph node that measures 1.1 cm. There are median sternotomy wires and postope rative findings from bypass grafting. The heart is mildly enlarged. There is no pericardial effusion. A few indeterminate noncalcified pulmonary nodules are noted, including a 7 mm right lower lobe nodu le on image 157 of 286 and an 8 mm right lower lobe nodule on image 137. No suspicious osseous lesion s within the bony thorax are noted. There is no axillary lymphadenopathy. Several hypodense hepatic l esions suggesting metastases. These are better depicted on the CT of the abdomen and pelvis. Bulky up per abdominal adenopathy is also better depicted on that exam. IMPRESSION: 1. Moderate wall thickening of the distal esophagus that extends to the gastroesophageal junction. Mi ldly enlarged distal esophageal lymph nodes and extensive abdominal lymphadenopathy with hepatic meta stases. These findings raise the possibility of esophageal adenocarcinoma. 2. A few indeterminate subcentimeter pulmonary nodules. Electronically signed by: Allan Berrios M.D. 05/17/2018 12:24 PM
--- NOTE | 2018-05-17 12:40 | CT Scan Report ---
CT OF THE ABDOMEN AND PELVIS WITH CONTRAST CLINICAL HISTORY: Brain mets, work up COMPARISON STUDY: None. TECHNIQUE: Following IV administration of 94 mL of Optiray-320, axial images of the abdomen and pelvi s were obtained from the lung bases to the proximal femurs. Images were reviewed in the axial, sagitt al, and coronal planes. IV contrast was administered without complication. Automated exposure contro l was utilized for the study. A dose lowering technique was utilized adhering to the principles of A DARA. FINDINGS: Please note that the chest CT will be reported separately. Note is made of moderate wall th ickening of the distal esophagus that extends to the gastroesophageal junction and the gastric cardia . The spleen and adrenal glands are unremarkable. A 3.7 cm lesion arising from the midpole of the upp er kidney measures above water attenuation but was shown to likely reflect a cyst on prior ultrasound of March 01, 2009. There is a small right renal cyst. There is no hydronephrosis. Note is made of a n ill-defined 5.1 cm hypodense segment 7 hepatic lesion. There is also a 2 cm hypodense segment 2 hep atic lesion. There is mild enlargement of the lateral segment of the liver. There are numerous marked ly enlarged upper abdominal lymph nodes. An index valeri hepatis node measures 4.8 cm. An index portac aval node measures 7.4 x 4.5 cm. An index peripancreatic node measures 8 x 5.1 cm. Enlarged gastrohep atic ligament lymph nodes are noted. Several these nodes are partially necrotic. These nodes narrow t he main portal vein. There are gallstones within the gallbladder. There are multiple enlarged retrope ritoneal lymph nodes as well. Index aortocaval lymph node measures 2.8 cm. There is no evidence for a bowel obstruction. Fat-containing umbilical hernia is noted. This colonic diverticulosis without darrius dence for acute diverticulitis. This extensive aortoiliac plaque. 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 There are no suspicious osseous lesions. IMPRESSION: 1. Moderate wall thickening of the distal esophagus that extends to the gastroesophageal junction. Ma rkedly enlarged upper abdominal lymph nodes and several hepatic metastases. These findings raise the possibility of esophageal adenocarcinoma. Bulky upper abdominal adenopathy narrows but does not occlu de the main portal vein. 2. 3.7 cm left renal lesion which measures above water attenuation but shown to likely reflect a cyst on a prior renal ultrasound. 3. No pancreatic or biliary ductal dilatation. 4. Cholelithiasis. Electronically signed by: Allan Berrios M.D. 05/17/2018 12:38 PM
[2018-05-17] MEDS: DEXAMETHASONE SOD PHOSPHATE 4 MG in SYRINGE 0 ML IV SCH ×2 (16:28→21:00)
[2018-05-17] MEDS: ATORVASTATIN 40 MG TAB PO SCH (20:59)
[2018-05-17] MEDS: INSULIN GLARGINE SOLOSTAR 100 UNITS/ML 3 ML PEN SC SCH (21:06)
[2018-05-17] MEDS ORDERED: Nursing to Pharmacy Communication ONE (23:47)
[2018-05-18] MEDS: INSULIN ASPART 100 UNITS/ML 3 ML PEN SC SCH ×5 (00:07→20:50)
[2018-05-18] MEDS: DEXAMETHASONE SOD PHOSPHATE 4 MG in SYRINGE 0 ML IV SCH ×3 (05:49→17:13)
[2018-05-18] MEDS: SODIUM CHLORIDE 0.9% 1000ML 1,000 ML IV SCH (05:50)
[2018-05-18 06:27] LABS: Hematocrit (blood only) 28.5 % (42-52); Hemoglobin 9.1 g/dL (14.0-18.0); Immature Granulocytes # (auto) 0.02 K/uL (0.00-0.02); Immature Granulocytes % (auto) 0.4 %; Lymphocytes # (auto) 0.78 K/uL (1.2-3.4); Lymphocytes % (auto) 14.4 %; Mean Corpuscular Hgb Conc 31.9 g/dL (32-36); Mean Corpuscular Volume 88.5 fL (80-100); Mean Platelet Volume 10.1 fL (7.4-10.4); Monocytes # (auto) 0.11 K/uL (0.11-0.59); Neutrophils # (auto) 4.49 K/uL (1.4-6.5); Neutrophils % (auto) 83.2 %; Platelet Count 198 K/uL (130-400); RDW Coefficient of Variation 16.9 % (11.5-14.5); RDW Standard Deviation 53.5 fL (36.4-46.3); Red Blood Count 3.22 M/uL (4.7-6.1)
[2018-05-18 06:42] LABS: INR 1.2 (0.9-1.1); Partial Thromboplastin Time 27.9 Seconds (21.0-31.0); Prothrombin Time 12.4 Seconds (9.0-12.0)
[2018-05-18 06:59] LABS: Albumin Level 2.8 gm/dl (3.4-5.0); BUN Creatinine Ratio 16.5 (10-20); Calcium 8.2 mg/dl (8.5-10.1); Creatinine Clr Calc Pharmacy 39.1 ml/min; Est GFR (African American) 42.4; Est GFR (Non-African American) 36.6; Potassium 4.5 mmol/L (3.5-5.1)
[2018-05-18 07:02] LABS: Albumin Globulin Ratio 0.6 (0.9-2); Bilirubin,Total 0.5 mg/dl (0.2-1); Globulin 4.9 gm/dl (2.5-4.0); Total Protein 7.7 gm/dl (6.4-8.2)
[2018-05-18] MEDS: CARVEDILOL 25 MG TAB PO SCH ×2 (08:37→20:45)
[2018-05-18] MEDS: INSULIN GLARGINE SOLOSTAR 100 UNITS/ML 3 ML PEN SC SCH (08:38)
--- NOTE | 2018-05-18 08:41 | Radiation OncologyConsultation ---
Date of Consultation May 18, 2018 Assessment & Plan (1) Esophageal cancer, stage IV: Assessment: Mr. Milner is a 67-year-old gentleman who recently presented with concerning neurologic symptoms involving the right upper and lower extremity who presented to the emergency room department. Imaging workup reveals an esophageal mass with significant retroperitoneal adenopathy with potential liver metastasis and brain metastasis. The patient has not undergone a tissue diagno sis at this point but is scheduled to undergo a upper endoscopy with biopsy today by Dr. Jc Boothe. We have been asked to evaluate the patient regarding his metastatic disease to the brain. Treatment Options: 1. Whole brain radiation therapy. 2. Stereotactic radiosurgery to brain metastasis. Recommendation: Given the patient's level of potential widespread metastatic disease involving the liver and retroperitoneal lymph nodes, I am recommending a course of palliative whole brain radiation therapy. I have concerned that the patient may have more micrometastatic disease involving the brain and would prefer to start with whole brain radiation therapy. If the patient does undergo chemotherapy or immunotherapy and has a good response to treatment and improves overall, I would recommend repeating an MRI of the brain following whole brain radiation therapy to consider consolidative stereotactic radiosurgery for persistent brain metastasis. Plan: 1. Patient to proceed with upper endoscopy and biopsy today to confirm diagnosis. Patient already NPO. 2. We will schedule the patient to come down tomorrow for CT simulation for treatment planning. 3. Pending a preliminary pathologic diagnosis from the procedure, we will then initiate whole brain radiation therapy. 4. Would recommend Decadron 4 mg four times a day given the fact that the patient still continues to still have some numbness in the right upper and lower extremity. 5. Medical oncology consultation in the outpatient setting. Rationale/Explanation of Treatment: We explained the indications, alternatives, benefits, risks and side effects of external beam radiation therapy to the brain. We explain the most common side effects including but not limited to skin erythema, skin break down, hair loss, radiation necrosis, fatigue, short- term memory loss, decreased neurocognitive performance, cerebral edema, hearing loss, damage to cochlea structures, seizures, loss of sensory and or motor function. We explained the treatment planning process and what to expect before during and after treatment. The patient understands and would be willing to consent to treatment. The patient had multiple questions which were answered to their full satisfaction. Thank you for allowing us to participate in the care of this patient. This chart was completed in part utilizing Dragon Speech Voice Recognition software. Attempts were made to minimize the grammatical errors, random word insertions, pronoun errors and incomplete sentences. Any formal questions or concerns about the content, text or information contained within the body of this dictation should be directly addressed to the provider for clarification. Dmitriy Gurrola MD Department of Radiation Oncology [facility] Present on Admission?: Yes History of Present Illness Reason for Consultation: Brain Metastases and Esophageal Mass Requesting Physician: Kitty Godinez MD Attending Physician: Dmitriy Gurrola MD History of Present Illness 05/17/2018. Patient complains of numbness involving the right upper and lower extremity and presents to emergency department. Patient does note he has had some additional weight loss over the last several weeks however he denies any dysphasia. 05/17/2018. CT of head. IMPRESSION: Extensive vasogenic edema within the left frontoparietal convexity with an associated 9 mm hyperdense focus. Suspected additional 9 mm hyperdense focus within the right cerebellar hemisphere with vasogenic edema and slight effacement of the fourth ventricle without hydrocephalus. 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 An MRI of the brain with and without contrast is recommended. 05/17/2018. MRI brain. IMPRESSION: 1. Multiple enhancing parenchymal lesions including 1 cm lesions within the left frontoparietal convexity and right cerebellar hemisphere with associated vasogenic edema with mild mass effect. At least 2 smaller lesions. These findings are highly suggestive of metastatic disease. 2. No evidence for acute infarct. 05/17/2018. CT of chest. IMPRESSION: 1. Moderate wall thickening of the distal esophagus that extends to the gastroesophageal junction. Mildly enlarged distal esophageal lymph nodes and extensive abdominal lymphadenopathy with hepatic metastases. These findings raise the possibility of esophageal adenocarcinoma. 2. A few indeterminate subcentimeter pulmonary nodules. 05/17/2018. IMPRESSION: 1. Moderate wall thickening of the distal esophagus that extends to the gastroesophageal junction. Markedly enlarged upper abdominal lymph nodes and several hepatic metastases. These findings raise the possibility of esophageal adenocarcinoma. Bulky upper abdominal adenopathy narrows but does not occlude the main portal vein. 2. 3.7 cm left renal lesion which measures above water attenuation but shown to likely reflect a cyst on a prior renal ultrasound. 3. No pancreatic or biliary ductal dilatation. 4. Cholelithiasis. Allergies Allergy/AdvReac Type Severity Reaction Status Date / Time Penicillins Allergy Intermediate HIVES Verified 05/17/18 11:01 Home Medications Home Medications Medication Instructions Recorded Confirmed Type atorvastatin 40 mg PO QPM 05/17/18 05/17/18 History carvedilol 25 mg PO QAM 05/17/18 05/17/18 History diltiazem HCl 120 mg PO QAM 05/17/18 05/17/18 History lisinopril 20 mg PO QPM 05/17/18 05/17/18 History metformin 1,000 mg PO BIDM 05/17/18 05/17/18 History sitagliptin [Januvia] 50 mg PO QAM 05/17/18 05/17/18 History Patient History Medical History Anemia Diabetes HTN (hypertension) Heart disease Surgical History S/P triple vessel bypass Family History Other Cancer Diabetes Heart disease Hypertension Kidney disease Seizure Social History Preferred Language: Yi Communication Ability: Effective Beliefs That Will Affect Care: None marital status: Current Living Situation: Spouse current occupational status: retired Feels Safe at Home: Yes Smoking Status: Former smoker Hx Alcohol Use: No Hx Substance Use: No Review of Systems Constitutional: as per Subjective / HPI Eyes: as per Subjective / HPI Ear, Nose, Mouth, Throat: as per Subjective / HPI Respiratory: as per Subjective / HPI Cardiovascular: as per Subjective / HPI Gastrointestinal: as per Subjective / HPI Musculoskeletal: as per Subjective / HPI Integumentary: as per Subjective / HPI Neurologic: as per Subjective / HPI Psychiatric: as per Subjective / HPI Endocrine: as per Subjective / HPI Hematologic / Lymphatic: as per Subjective / HPI Allergy / Immunological: as per Subjective / HPI Physical Exam Vital Signs (Past 24 Hours): Last Vital Signs Temp 36.6 C 05/18/18 07:08 Pulse 85 05/18/18 07:08 Resp 18 05/18/18 07:08 BP 124/72 05/18/18 07:08 Pulse Ox 97 05/18/18 07:08 Constitutional: WD/WN, vitals as above well developed and well nourished Eyes: PERRL, conjunctivae normal, anicteric sclerae ENMT: external ear and nose normal, oropharynx normal Neck: trachea midline, no thyromegaly Respiratory: normal respiratory effort, lungs clear to auscultation Cardiovascular: RRR, no murmur, no edema Gastrointestinal (Abdomen): normal bowel sounds, soft, nontender, no hepatosplenomegaly Musculoskeletal: Strength 5 out of 5 for left side. Strength 4/5 for right upper/lower extremity. Skin: no rashes, warm and dry Neurologic: patellar DTR's 2+ bilat, sensation intact and PERRL, EOMI, accommodation nl, no face palsy, no dysarthria Psychiatric: A+Ox3, euthymic affect Results Additional Studies 05/17/18 04:16 ECG [address] head/brain wo con Urgent 05/17/18 05:34 XR chest 1V portable Urgent 05/17/18 06:04 MR brain wo/w con Stat 05/17/18 06:25 MR angio head wo con Stat MR angio neck wo con Stat 05/17/18 10:16 CT abd pelvis IV con only Routine CT chest w con Routine 05/18/18 07:00 ECG 12 lead EKG DAILY 05/19/18 07:00 ECG 12 lead EKG DAILY
--- NOTE | 2018-05-18 09:52 | Gastrointestinal Consultation ---
Date of Consultation May 18, 2018 Assessment & Plan (1) Right sided weakness: (2) Esophageal mass: Pt is a 67 y/o male who presented w R hand weakness, numbness, difficulty w balance; upon evaluation no signs of acute brain infarct but found to have brain lesions concerning for mets. Subsequent imaging of chest, abd/pelvis CT showed distal esophageal thickening extending to GE junction, enlarged esophageal lymph nodes, extensive abd lymphadenompathy w hepatic mets, findings concerning for esophageal adenocarcinoma. - Keep pt NPO; will plan EGD evaluation by Dr. Finney today. GI will give further recs after EGD is completed - Oncology and Rad Oncology consulted by primary team. Supervising Physician Co-Signing Physician Notes I performed a history and physical examination of the patient, including specifically on physical exam - soft, nontender abdomen. I have discussed the patient's management with Beverly. Please refer to the nurse practitioner's note for the documented findings and plan of care. EGD today to evluate for suspected metastatic GE junction tumor History of Present Illness Reason for Consultation: Possible esophageal mass w mets. Requesting Physician: Dr. Unruly Gray Attending Physician: Dr. Gume Finney History of Present Illness Pt is a 67 y/o male who presented to ED yesterday w/ c/o R hand numbness, weakness, difficulty writing and also difficulty w balance when he tried to walk, leaning to the R side. Initial workup for stroke w head CT and brain MRI showed no signs of acute infarct but revealed several brain lesions concernign for metastatic processes. He subsequently underwent CT chest/abd/pelvis w contrast which showed indeterminate subcm pulmonary nodules, moderate wall thickening of the distal esophagus that extends to the gastroesophageal junction, mildly enlarged distal esophageal lymph nodes and extensive abdominal lymphadenopathy with hepatic metastases. These findings raise the possibility of esophageal adenocarcinoma. GI consulted to provide EGD evaluation for diagnostic purposes. Pt denies any symptoms of dysphagia, odynophagia, n/v. He admits to lose 20 lbs in 4 months last year but attributed it to following a diet. He did mention appetite been poor since last September. He denies any bowel habit changes, does have chronic mild constipation. He never had EGD evaluation in the past, + colonoscopy 10 yrs ago which he said was normal. He does chew tobacco, smoked cigarettes till 30 yrs ago. Denies ETOH abuse. He did have hx of "bladder ca" s/p resection but never underwent chemo or XRT 10+ yrs ago. Otherwise also had hx of CABG in , on ASA 81 mg a day Allergies Allergy/AdvReac Type Severity Reaction Status Date / Time Penicillins Allergy Intermediate HIVES Verified 05/18/18 10:29 Home Medications Home Medications Medication Instructions Recorded Confirmed Type atorvastatin 40 mg PO QPM 05/17/18 05/17/18 History carvedilol 25 mg PO QAM 05/17/18 05/17/18 History diltiazem HCl 120 mg PO QAM 05/17/18 05/17/18 History lisinopril 20 mg PO QPM 05/17/18 05/17/18 History metformin 1,000 mg PO BIDM 05/17/18 05/17/18 History sitagliptin [Januvia] 50 mg PO QAM 05/17/18 05/17/18 History Patient History Medical History Acute kidney injury Anemia Brain lesion Cancer Cerebrovascular accident R sided weakness more likely due to swelling from brain tumors Coronary artery disease Dyslipidemia Esophageal mass Anemia Diabetes HTN (hypertension) Heart disease Surgical History S/P triple vessel bypass Family History Other Cancer Diabetes Heart disease Hypertension Kidney disease Seizure Social History Preferred Language: Filipino Communication Ability: Effective Beliefs That Will Affect Care: None marital status: Current Living Situation: Spouse current occupational status: retired Feels Safe at Home: Yes Smoking Status: Former smoker Hx Alcohol Use: No Hx Substance Use: No Review of Systems Constitutional: as per Subjective / HPI and + weight loss Ear, Nose, Mouth, Throat: as per Subjective / HPI Respiratory: no cough and no pain on inspiration Cardiovascular: no chest pain Gastrointestinal: as per Subjective / HPI Neurologic: as per Subjective / HPI Physical Exam Vital Signs (Past 24 Hours): Last Vital Signs Temp 36.6 C 05/18/18 07:08 Pulse 85 05/18/18 07:08 Resp 18 05/18/18 07:08 BP 124/72 05/18/18 07:08 Pulse Ox 97 05/18/18 07:08 Constitutional: WD/WN, vitals as above well groomed, cooperative and comfortable Eyes: PERRL, conjunctivae normal, anicteric sclerae ENMT: external ear and nose normal, oropharynx normal Respiratory: normal respiratory effort, lungs clear to auscultation Cardiovascular: RRR, no murmur, no edema Gastrointestinal (Abdomen): normal bowel sounds, soft, nontender, no hepatosplenomegaly Skin: no rashes, warm and dry no jaundice Neurologic: Motor/Sensory: no asterixis clear speech, no facial droop, tongue deviation. Bilateral hands bottle capper w equal strength Psychiatric: A+Ox3, euthymic affect Lymphatic: no lymphedema Results & Data Laboratory Results Laboratory Results - last 72 hr 05/17/18 05/17/18 05/17/18 03:50 03:50 03:50 WBC 6.94 RBC 3.34 L Hgb 9.5 L Hct 29.7 L MCV 88.9 MCH 28.4 MCHC 32.0 RDW Std Deviation 54.1 H RDW Coeff of Jeannette 17.0 H Plt Count 209 MPV 10.5 H Immature Gran % (Auto) 0.7 Neut % (Auto) 60.9 Lymph % (Auto) 23.9 Garland % (Auto) 11.2 Eos % (Auto) 3.0 Baso % (Auto) 0.3 Immature Gran # (Auto) 0.05 H Neut # (Auto) 4.22 Lymph # (Auto) 1.66 Garland # (Auto) 0.78 H Eos # (Auto) 0.21 Baso # (Auto) 0.02 PT 12.4 H INR 1.2 H APTT 27.7 PTT Ratio 1.0 Sodium 134 L Potassium 4.5 Chloride 105 Carbon Dioxide 22 Anion Gap 7.0 BUN 20 H Creatinine 1.54 H Est Cr Clr Drug Dosing 46.7 Est GFR ( Amer) 52.6 Est GFR (Non-Af Amer) 45.4 BUN/Creatinine Ratio 12.8 Glucose 216 H POC Glucose Calcium 8.9 Magnesium 1.7 L Total Bilirubin 0.5 AST 12 L ALT 12 Alkaline Phosphatase 147 H Troponin I < 0.015 Total Protein 8.4 H Albumin 3.2 L Globulin 5.2 H Albumin/Globulin Ratio 0.6 L Triglycerides Cholesterol LDL Cholesterol, Calc VLDL Cholesterol, Calc HDL Cholesterol Cholesterol/HDL Ratio Nasal Screen MRSA (PCR) Hepatitis C Ab Screen Blood Type Antibody Screen 05/17/18 05/17/18 05/17/18 03:50 04:22 04:23 WBC RBC Hgb Hct MCV MCH MCHC RDW Std Deviation RDW Coeff of Jeannette Plt Count MPV Immature Gran % (Auto) Neut % (Auto) Lymph % (Auto) Garland % (Auto) Eos % (Auto) Baso % (Auto) Immature Gran # (Auto) Neut # (Auto) Lymph # (Auto) Garland # (Auto) Eos # (Auto) Baso # (Auto) PT INR APTT PTT Ratio Sodium Potassium Chloride Carbon Dioxide Anion Gap BUN Creatinine Est Cr Clr Drug Dosing Est GFR ( Amer) Est GFR (Non-Af Amer) BUN/Creatinine Ratio Glucose POC Glucose 209 H Calcium Magnesium Total Bilirubin AST ALT Alkaline Phosphatase Troponin I Total Protein Albumin Globulin Albumin/Globulin Ratio Triglycerides Cholesterol LDL Cholesterol, Calc VLDL Cholesterol, Calc HDL Cholesterol Cholesterol/HDL Ratio Nasal Screen MRSA (PCR) Hepatitis C Ab Screen Neg Blood Type O Positive Antibody Screen NEGATIVE 05/17/18 05/17/18 05/17/18 09:30 09:39 10:12 WBC RBC Hgb Hct MCV MCH MCHC RDW Std Deviation RDW Coeff of Jeannette Plt Count MPV Immature Gran % (Auto) Neut % (Auto) Lymph % (Auto) Garland % (Auto) Eos % (Auto) Baso % (Auto) Immature Gran # (Auto) Neut # (Auto) Lymph # (Auto) Garland # (Auto) Eos # (Auto) Baso # (Auto) PT INR APTT PTT Ratio Sodium Potassium Chloride Carbon Dioxide Anion Gap BUN Creatinine Est Cr Clr Drug Dosing Est GFR ( Amer) Est GFR (Non-Af Amer) BUN/Creatinine Ratio Glucose POC Glucose 196 H Calcium Magnesium Total Bilirubin AST ALT Alkaline Phosphatase Troponin I < 0.015 Total Protein Albumin Globulin Albumin/Globulin Ratio Triglycerides 140 Cholesterol 122 LDL Cholesterol, Calc 68 VLDL Cholesterol, Calc 28 HDL Cholesterol 26 Cholesterol/HDL Ratio 5 Nasal Screen MRSA (PCR) Negative Hepatitis C Ab Screen Blood Type Antibody Screen 05/17/18 05/17/18 05/17/18 11:31 16:02 19:36 WBC RBC Hgb Hct MCV MCH MCHC RDW Std Deviation RDW Coeff of Jeannette Plt Count MPV Immature Gran % (Auto) Neut % (Auto) Lymph % (Auto) Garland % (Auto) Eos % (Auto) Baso % (Auto) Immature Gran # (Auto) Neut # (Auto) Lymph # (Auto) Garland # (Auto) Eos # (Auto) Baso # (Auto) PT INR APTT PTT Ratio Sodium Potassium Chloride Carbon Dioxide Anion Gap BUN Creatinine Est Cr Clr Drug Dosing Est GFR ( Amer) Est GFR (Non-Af Amer) BUN/Creatinine Ratio Glucose POC Glucose 197 H 268 H 276 H Calcium Magnesium Total Bilirubin AST ALT Alkaline Phosphatase Troponin I Total Protein Albumin Globulin Albumin/Globulin Ratio Triglycerides Cholesterol LDL Cholesterol, Calc VLDL Cholesterol, Calc HDL Cholesterol Cholesterol/HDL Ratio Nasal Screen MRSA (PCR) Hepatitis C Ab Screen Blood Type Antibody Screen 05/17/18 05/18/18 05/18/18 23:44 05:59 06:15 WBC 5.40 RBC 3.22 L Hgb 9.1 L Hct 28.5 L MCV 88.5 MCH 28.3 MCHC 31.9 L RDW Std Deviation 53.5 H RDW Coeff of Jeannette 16.9 H Plt Count 198 MPV 10.1 Immature Gran % (Auto) 0.4 Neut % (Auto) 83.2 Lymph % (Auto) 14.4 Garland % (Auto) 2.0 Eos % (Auto) 0.0 Baso % (Auto) 0.0 Immature Gran # (Auto) 0.02 Neut # (Auto) 4.49 Lymph # (Auto) 0.78 L Garland # (Auto) 0.11 Eos # (Auto) 0.00 Baso # (Auto) 0.00 PT INR APTT PTT Ratio Sodium Potassium Chloride Carbon Dioxide Anion Gap BUN Creatinine Est Cr Clr Drug Dosing Est GFR ( Amer) Est GFR (Non-Af Amer) BUN/Creatinine Ratio Glucose POC Glucose 331 H 333 H Calcium Magnesium Total Bilirubin AST ALT Alkaline Phosphatase Troponin I Total Protein Albumin Globulin Albumin/Globulin Ratio Triglycerides Cholesterol LDL Cholesterol, Calc VLDL Cholesterol, Calc HDL Cholesterol Cholesterol/HDL Ratio Nasal Screen MRSA (PCR) Hepatitis C Ab Screen Blood Type Antibody Screen 05/18/18 05/18/18 06:15 06:15 WBC RBC Hgb Hct MCV MCH MCHC RDW Std Deviation RDW Coeff of Jeannette Plt Count MPV Immature Gran % (Auto) Neut % (Auto) Lymph % (Auto) Garland % (Auto) Eos % (Auto) Baso % (Auto) Immature Gran # (Auto) Neut # (Auto) Lymph # (Auto) Garland # (Auto) Eos # (Auto) Baso # (Auto) PT 12.4 H INR 1.2 H APTT 27.9 PTT Ratio 1.0 Sodium 134 L Potassium 4.5 Chloride 106 Carbon Dioxide 19 L Anion Gap 9.0 BUN 30 H Creatinine 1.84 H D Est Cr Clr Drug Dosing 39.1 Est GFR ( Amer) 42.4 Est GFR (Non-Af Amer) 36.6 BUN/Creatinine Ratio 16.5 Glucose 300 H POC Glucose Calcium 8.2 L Magnesium Total Bilirubin 0.5 AST 11 L ALT 11 L Alkaline Phosphatase 132 H Troponin I Total Protein 7.7 Albumin 2.8 L Globulin 4.9 H Albumin/Globulin Ratio 0.6 L Triglycerides Cholesterol LDL Cholesterol, Calc VLDL Cholesterol, Calc HDL Cholesterol Cholesterol/HDL Ratio Nasal Screen MRSA (PCR) Hepatitis C Ab Screen Blood Type Antibody Screen
--- NOTE | 2018-05-18 09:56 | Consultation Report ---
DATE OF CONSULTATION: 05/18/2018 MEDICAL ONCOLOGY CONSULTATION REASON FOR CONSULTATION: Suspected metastatic carcinoma, primary unknown (suspicious for esophageal). HISTORY OF PRESENT ILLNESS: Mr. Milner is a very pleasant, somewhat unfortunate 67-year-old gentleman who presented to [facility] on 17 of May complaining of right-sided weakness and gait imbalance. This gentleman had developed dysfunction of his right hand, now he estimates when I first saw him in the office for anemia back earlier in April. He states that time he had had difficulty writing a check. He brought this up to his primary care physician who was in the midst of referring him to neurology. Surprisingly, this gentleman has had no other symptoms other than his neurologic deficit that he presented with. Specifically, he denied dysphagia or sticking of solids and liquids in light of the CT findings done this admission, which include distal esophageal wall thickening. He had also been partially worked up for anemia by his primary care physician which included fecal occult blood card and iron studies of both which did not indicate he was bleeding nor were his iron stores deficient. I had actually seen Mr. Milner's new consultation on 04/30/2018 for normocytic normochromic anemia, at which time, his hemoglobin measured 8.6, his WBCs and platelets were otherwise normal. His creatinine was elevated and therefore once iron stores were confirmed to be normal, I felt he suffered from anemia of chronic disease and actually started him on supplemental erythropoietin. Upon admission, he underwent extensive radiographic workup, specifically MRI of the brain which revealed a 1 cm enhancing lesion in the right cerebellar hemisphere with extensive vasogenic edema and then there was a 3 mm right occipital lobe lesion seen as well and additional 3 mm within the left cerebellar hemisphere. The hospitalist service then ordered a CT of the chest, abdomen and pelvis which revealed moderate wall thickening of the distal esophagus as well as extensive abdominal lymphadenopathy and small hepatic metastatic lesions. Again, this gentleman has had no alteration in his weight, appetite, dysphagia, etc and this presumed diagnosis is somewhat surprising. I have been asked to see Mr. Milner for what is believed to be a disseminated metastatic esophageal cancer. PAST MEDICAL HISTORY: Again, significant for anemia of chronic disease, basal cell carcinoma of the face, coronary artery disease, CHF, carotid artery stenosis, chronic kidney disease, diabetes mellitus type 2, hypercholesterolemia, hypertension, hypoglycemia, peripheral artery disease and tachycardia. PAST SURGICAL HISTORY: Status post coronary artery bypass grafting. MEDICATIONS: Atorvastatin 40 mg p.o. daily, lisinopril 20 mg p.o. daily, azelastine intranasal spray 2 sprays each nostril p.r.n., Januvia 50 mg p.o. daily, carvedilol 25 mg p.o. b.i.d., aspirin 81 mg p.o. daily, metformin 1000 mg p.o. b.i.d., omega-3 fatty acids 300/100 p.o. daily, clobetasol topical solution 0.05% used as directed. ALLERGIES: PENICILLINS. 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 He is . He is a nondrinker, nonsmoker. He does chew tobacco, however. FAMILY HISTORY: Noncontributory. REVIEW OF SYSTEMS: Again, other than gait imbalance in the right lower and upper extremity weakness, he was asymptomatic. Negative for headaches, lightheadedness or dizziness. SKIN: No skin rashes or lesions otherwise. He has history of basal cell carcinoma of the skin. HEENT: No headaches, lightheadedness. No dizziness, no acute visual or hearing deficits. No sinus symptoms, sore throat or dysphagia noted. LYMPH: No history of lymphoproliferative disease. CARDIAC: Positive history of coronary artery disease. Positive history of tachycardia. No current angina or palpitations. PULMONARY: Negative for COPD. No shortness of breath, dyspnea or orthopnea. No cough or hemoptysis. GASTROINTESTINAL: Negative for abdominal pain, nausea, vomiting, diarrhea or constipation. No hematochezia, melena or raiza rectal bleeding. GENITOURINARY: No history of prostate disease. No hematuria, dysuria, urinary incontinence. PSYCHIATRIC: Negative for anxiety, depression or psychoses. ENDOCRINE: Positive for diabetes mellitus. NEUROLOGIC: As per HPI. No history of migraine headaches or seizure disorder, otherwise. HEMATOLOGIC: Positive for normocytic normochromic anemia. PHYSICAL EXAMINATION: GENERAL: He is a very pleasant 67-year-old gentleman, in no acute distress, awake, alert and appropriate. HEENT: Head: Atraumatic, normocephalic. Eyes: PERRLA, EOMI. Sclerae nonicteric. No conjunctival injection. Nares are patent without rhinorrhea or discharge. Throat is clear. Tongue is midline. Mucous membranes are moist. NECK: Supple without JVD or thyromegaly. LYMPH: No cervical or supraclavicular palpable nodes. HEART: Regular rate and rhythm. No clicks, rubs, murmurs or gallops. LUNGS: Clear to auscultation bilaterally. ABDOMEN: Soft, nontender, nondistended, without palpable hepatosplenomegaly. EXTREMITIES: No clubbing, cyanosis or edema. Again, right-sided strength is diminished in the upper and lower extremity pretty equally. NEUROLOGICALLY: He is awake, alert and oriented x3. Cranial nerves II-XII are intact. LABORATORY DATA: WBC count 5400, hemoglobin 9.1, platelet count 198,000. Albumin 2.8, AST 11, ALT 11. IMPRESSION: 1. Cerebellar metastatic disease. 2. Suspect esophageal primary. 3. Normocytic normochromic anemia. 4. Anemia of renal insufficiency. 5. Hypoalbuminemia. PLAN: I had the pleasure of seeing Mr. Milner at bedside this morning. Interestingly, I saw this gentleman on 30 of April, worked up for normocytic normochromic anemia and provided no indication, he was actively bleeding including adequate iron stores and a negative fecal occult blood cards. He has had no symptomatology that would have suggested an emerging dysphagia as his appetite has remained robust and Cheko denied any weight loss. There was no sticking of solids or meats. All in all, the diagnosis is somewhat shocking. Radiographically, there is evidence for FLATBED DRIVER as well as pulmonary and hepatic metastatic disease. I agree with proceeding with EGD. Biopsy should be carried out and HER-2/chelo testing of the specimen to determine status. Unfortunately, this portends a very poor prognosis for Mr. Milner. I asked radiation oncology to visit with him which took place before I saw Cheko this morning. Plans are underway for him to receive whole brain radiation. Once he completes radiation therapy, we will then reconvene and discuss systemic therapy moving forward. Fortunately, he is having no pain issues, his overall life quality and performance status are quite good. I have nothing further to add and will continue to follow him periodically during his hospital stay. Continue corticosteroids as per radiation oncology's instruction. I will make sure Mr. Milner scheduled for expedient followup upon discharge. [facility]
[2018-05-18 09:59] LABS: Estimated Average Glucose 174 mg/dl; Hemoglobin A1C 7.7 % (4.5-5.6)
--- NOTE | 2018-05-18 10:38 | Anesthesiology Consultation ---
Date of Service May 18, 2018 Assessment & Plan (1) Encounter for pre-operative examination: Chart Review Chart Review: Acceptable Risk for Surgery and Patient NOT seen in Pre Admission Testing Consults Requested none NPO Date Last Intake of Fluids: 05/17/18 Time Last Intake of Fluids: 19:00 Date Last Intake of Solids: 05/17/18 Time Last Intake of Solids: 19:00 History Surgery Operation Date: 05/18/18 08:30 Proposed Procedures p Esophagogastroduodenoscopy Dr Finney - Gume Finney MD Height/Weight Height: 5 ft 10 in Weight: 86.6 kg Allergies Allergy/AdvReac Type Severity Reaction Status Date / Time Penicillins Allergy Intermediate HIVES Verified 05/18/18 10:29 Medications Home Medications Medication Instructions Recorded Confirmed Last Taken atorvastatin 40 mg PO QPM 05/17/18 05/17/18 05/16/18 carvedilol 25 mg PO QAM 05/17/18 05/17/18 05/16/18 diltiazem HCl 120 mg PO QAM 05/17/18 05/17/18 05/16/18 lisinopril 20 mg PO QPM 05/17/18 05/17/18 05/16/18 metformin 1,000 mg PO BIDM 05/17/18 05/17/18 05/16/18 sitagliptin [Januvia] 50 mg PO QAM 05/17/18 05/17/18 05/16/18 Active Medications Generic Name Dose Route Start Last Admin Trade Name Freq PRN Reason Stop Dose Admin Atorvastatin Calcium 40 mg 05/17/18 21:00 05/17/18 20:59 Lipitor PO 06/16/18 20:59 40 mg QPM ADONIS Administration Carvedilol 12.5 mg 05/17/18 09:28 05/18/18 08:37 Coreg PO 06/16/18 09:27 12.5 mg BID ADONIS Administration Gadobutrol 8.5 ml 05/17/18 09:23 05/17/18 09:24 Gadavist 30ml IV 05/21/18 09:22 8.5 ml ONCE PRN Administration Interaction Checking Pantoprazole Sodium 40 mg/ 10 mls @ 5 mls/min 05/17/18 11:00 05/17/18 10:14 Syringe IV 06/16/18 10:59 5 mls/min DAILY@1100 ADONIS Administration Sodium Chloride 1,000 mls @ 100 mls/hr 05/17/18 09:28 05/18/18 10:07 Nss 1000ml IV 06/16/18 09:27 0 mls/hr .Q10H ADONIS Infusion Insulin Aspart 0 units 05/18/18 00:00 05/18/18 06:03 Novolog Flexpen SC 06/17/18 00:00 10 units Q6 ADONIS Administration Insulin Glargine 10 units 05/17/18 21:00 05/18/18 08:38 Lantus Solostar Pen SC 06/16/18 20:59 10 units BID ADONIS Administration Ioversol 94 ml 05/17/18 12:07 05/17/18 12:07 Optiray 320 100ml IV 05/21/18 12:06 94 ml ONCE PRN Administration Interaction Checking Past Medical History Medical History Acute kidney injury Anemia Brain lesion Cancer Cerebrovascular accident R sided weakness more likely due to swelling from brain tumors Coronary artery disease Dyslipidemia Esophageal mass Anemia Diabetes HTN (hypertension) Heart disease Past Family History Family History Other Cancer Diabetes Heart disease Hypertension Kidney disease Seizure Past Surgical History Surgical History S/P triple vessel bypass Social History Smoking Status: Former smoker Hx Alcohol Use: No Hx Substance Use: No Physical Exam Vital Signs Last Vital Signs Temp 36.5 C 05/18/18 10:20 Pulse 80 05/18/18 10:20 Resp 22 05/18/18 10:20 BP 143/78 H 05/18/18 10:20 Pulse Ox 98 05/18/18 10:20 Testing Electrocardiogram Date: 05/18/18 Findings: + T wave inversion (inferior) SR with 1st degree AV block, ST changes consider inferior and anterolateral ischemia, prolong QT Chest X-Ray Date: 05/17/18 Findings: + NAD Laboratory Results 05/18/18 06:15 05/18/18 06:15 Blood Type O Positive 05/17/18 04:23 Antibody Screen NEGATIVE 05/17/18 04:23 PT 12.4 Seconds (9.0-12.0) H 05/18/18 06:15 INR 1.2 (0.9-1.1) H 05/18/18 06:15 APTT 27.9 Seconds (21.0-31.0) 05/18/18 06:15 Hemoglobin A1c 7.7 % (4.5-5.6) H 05/18/18 06:15 05/18/18 05/17/18 05:59 23:44 POC Glucose 333 H 331 H
[2018-05-18] MEDS ORDERED: fentaNYL citrate 100 MCG/2 ML VIAL ONE (11:09)
--- NOTE | 2018-05-18 11:40 | GI REPORT ---
Patient Name: Cheko Milner Procedure Date: 05/18/2018 11:11 AM Date of : 1950 Admit Type: Inpatient Age: 67 Gender: Male Attending MD: Gume Finney MD Procedure: Upper GI endoscopy Providers: Gume Finney MD Referring MD: Kitty Godinez Md Indications: Abnormal CT of the GI tract Medicines: Monitored Anesthesia Care Complications: No immediate complications. Estimated Blood Loss: Estimated blood loss: none. Procedure: Pre-Anesthesia Assessment: - Prior to the procedure, a History and Physical was performed, and patient medications and allergies were reviewed. The patient is competent. The risks and benefits of the procedure and the sedation options and risks were discussed with the patient. All questions were answered and informed consent was obtained. Patient identification and proposed procedure were verified by the physician and the nurse in the procedure room. Mental Status Examination: alert and oriented. Airway Examination: normal oropharyngeal airway and neck mobility. Respiratory Examination: clear to auscultation. CV Examination: normal. ASA Grade Assessment: III - A patient with severe systemic disease. After reviewing the risks and benefits, the patient was deemed in satisfactory condition to undergo the procedure. The anesthesia plan was to use monitored anesthesia care (MAC). Immediately prior to administration of medications, the patient was re-assessed for adequacy to receive sedatives. The heart rate, respiratory rate, oxygen saturations, blood pressure, adequacy of pulmonary ventilation, and response to care were monitored throughout the procedure. The physical status of the patient was re-assessed after the procedure. After obtaining informed consent, the endoscope was passed under direct vision. Throughout the procedure, the patient's blood pressure, pulse, and oxygen saturations were monitored continuously. The Endoscope was introduced through the mouth, and advanced to the second part of duodenum. The upper GI endoscopy was accomplished without difficulty. The patient tolerated the procedure well. Findings: A large, fungating mass was found in the lower third of the esophagus. The mass was partially obstructing. The mass seems to be originating from an underlying Garduno's mucosa, one tounge extends up to 20 cm from the incisors. The mass extends from GE junction involves cardia and up to around 35 cm from the incisors. Biopsies were taken with a cold forceps for histology. Verification of patient identification for the specimen was done by the physician and nurse using the patient's name and date. The entire examined stomach was normal. The duodenal bulb and second portion of the duodenum were normal. 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 Biopsied. - Normal stomach. - Normal duodenal bulb and second portion of the duodenum. Recommendation: - [facility]. - Await pathology results. - Oncology consult. - Consider Liver Bx or PET-CT scan to prove metastasis. - Consider Esophageal metal stent if he develops dysphagia in the future. Gume Finney MD 05/18/2018 11:39:57 AM This report has been signed electronically. Note Initiated On: 05/18/2018 11:11 AM Number of Addenda: 0 I attest to the content of the Intraoperative Record and orders documented therein, exceptions below {[id number]}
[2018-05-18] MEDS ORDERED: LIDOCAINE HCL 2% 2 ML VIAL/AMP(20MG/ML) INFIL ONE (11:43)
[2018-05-18] MEDS ORDERED: PROPOFOL IV EMULSION 10 MG/ML 20 ML VIAL IV ONE ×2 (11:43)
--- NOTE | 2018-05-18 12:04 | Anesthesiology Progress Note ---
Date of Service May 18, 2018 Anesthesia Post Procedure Vital Signs Vital Signs: Temp Pulse Pulse Resp BP BP Pulse Ox 05/18/18 11:53 87 18 140/79 96 05/18/18 11:39 36.5 C 89 16 92/52 L 98 05/18/18 10:20 36.5 C 80 22 143/78 H 98 05/18/18 07:08 36.6 C 85 18 124/72 97 05/18/18 03:40 36.4 C L 92 H 19 121/74 97 05/18/18 00:00 79 05/17/18 23:25 36.6 C 91 H 18 111/65 96 05/17/18 20:00 36.6 C 88 18 135/80 96 05/17/18 14:30 36.8 C 78 18 127/82 96 Pain Intensity Bilateral Head: Pain Intensity: 0 Notes Mental Status: alert / awake / arousable Patient Amnestic to Procedure: Yes Nausea / Vomiting: adequately controlled Pain: adequately controlled Airway Patency, RR, SpO2: stable & adequate BP & HR: stable & adequate Hydration State: stable & adequate Anesthetic Complications: no major complications apparent and Pt Satisfied with anesthetic care
[2018-05-18] MEDS: PANTOprazole 40 MG in SYRINGE 0 ML IV SCH (12:36)
--- NOTE | 2018-05-18 14:08 | Ultrasound Report ---
ULTRASOUND OF THE CAROTID ARTERIES CLINICAL HISTORY: ED stenosis on suboptimal noncontrast MRA COMPARISON STUDY: MR angiography dated 05/17/2018 TECHNIQUE: Real-time, grayscale, and color Doppler sonography of the carotid arteries was performed. Imaging reviewed in the transverse and longitudinal planes. NASCET criteria was utilized for stenosis calcification. FINDINGS: There is moderate calcific atherosclerotic plaque present . The peak systolic velocity within the right internal carotid artery is 232 cm/sec. The systolic velocity ratio of right internal to common carotid artery is 3.1. The peak systolic velocity within the left internal carotid artery is 95 cm/sec. The systolic velocity ratio left internal to common carotid artery is 0.9. Antegrade flow is seen in the vertebral arteries. The external carotid arteries are patent. IMPRESSION: Multifocal right internal carotid artery stenosis with a maximal diameter stenosis of 50- 69% Electronically signed by: Franklin Barahona M.D. 05/18/2018 2:07 PM
--- NOTE | 2018-05-18 14:39 | Pharmacy Report ---
Pharmacy Glycemic Rec 1 - Date of Service May 18, 2018 - Scope Glycemic Pharmacist to provide recommendations to improve glycemic control (all ICU patients are screened for hyperglycemia and treatment recommendations are provided per protocol). Pt identified with hyperglycemia (BSG above 180) while admitted to [facility] ([facility]). - Subjective The patient is a 67 year old M admitted on 05/17/18 06:40 for CVA symptoms, RIGHT SIDE WEAKNESS. Patient's past medical history is significant for diabetes mellitus. - Objective Accuchecks BSG (last 24hrs):: 05/17/18 05/17/18 05/17/18 16:02 19:36 23:44 Glucose POC Glucose 268 H 276 H 331 H 05/18/18 05/18/18 05/18/18 05:59 06:15 12:28 Glucose 300 H POC Glucose 333 H 310 H Laboratory Data (last 24hrs):: 05/18/18 05/18/18 05/18/18 06:15 06:15 06:15 WBC 5.40 Sodium 134 L Potassium 4.5 Anion Gap 9.0 BUN 30 H Creatinine 1.84 H D BUN/Creatinine Ratio 16.5 Hemoglobin A1c 7.7 H - Recent Pertinent Medications Outpatient Anti-diabetic Regimen: * Metformin 1gm PO BID * Sitagliptin 50mg PO daily * A1c = 7.7% The patient is currently receiving: * Basal Insulin: Lantus 10 units every 12 hours * Correctional Insulin: Novolog Correction per scale ACHS Goal Range: Low 100 mg/dL - High 150 mg/dL Correction Factor: 20 mg/dL/unit * Prandial Insulin: Per carb ratio of 1 unit per 8 grams CHO consumed * Oral Agents: None Risk Factors for Insulin Resistance: * Steroids: Dexamethasone 4mg IV Q 6 hours - Assessment & Plan ASSESSMENT: 05/18 * Type 2 diabetic admitted for neuro symptoms, 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 * Dexamethasone added for vasogenic edema and BSGs have climbed into the 300s * Current BSG pattern suggests basal insulin deficiency * Would recommend the following changes to insulin regimen based upon pt weight and moderate stress level with ATC IV dexamethasone administration RECOMMEND: * Increasing Lantus 15 units SQ BID, give additional 10 units SQ x 1 now * Changing correction factor to 18 mg/dl/unit * Changing carb ratio to 1 unit per 6 grams CHO consumed * Changing goal range Low 110 mg/dL - High 140 mg/dL Pharmacy will continue to provide recommendations in EMR while patient admitted to 1E/2E. Physicians may request pharmacy to continue to follow patient when transferred out of the ICU and/or consult pharmacy to write glycemic control orders * Please note that the plan above was derived based on current level of insulin resistance and hospital stress. These recommendations are appropriate for inpatient admission only. Plan of care upon discharge will need to be reassessed to avoid potential outpatient hypo/hyperglycemia. Thank you.
--- NOTE | 2018-05-18 15:20 | Cardiology Consultation ---
Date of Consultation May 18, 2018 Assessment & Plan (1) Coronary artery disease: The patient has an extensive history of coronary artery disease without obvious options for any additional intervention. However, he does not appear to be symptomatic from coronary disease with the exception of some mild dyspnea on exertion. He also appears to have preserved LV systolic function overall. In this setting, he does not appear to require any additional cardiac testing. He should be continued on his current medical regimen for secondary prevention which includes beta blockade, Jann inhibition, daily aspirin and high-dose atorvastatin. (2) Abnormal EKG: Patient's EKG is certainly abnormal. However, we do not have old EKGs upon which to provided comparison. It is possible that some of his cerebral vascular disease is reflected in his EKG. It also seems possible that he could have metastatic disease involving the myocardium or pericardium. However, he does not appear to be symptomatic from a cardiac standpoint. He has no evidence of significant conduction disease. There is no pericardial effusion on his echocardiogram or chest imaging. I do not believe he requires any additional cardiac evaluation for the abnormal EKG. I think he should continue on his medical therapy as noted above. History of Present Illness Reason for Consultation: Abnormal EKG Requesting Physician: Gretchen Attending Physician: Kitty Godinez MD History of Present Illness The patient is a 67-year-old gentleman with an extensive history of coronary disease who presented to [facility] [address] with symptoms of right leg and right arm weakness. Patient was discovered to have evidence of cerebral vascular disease in the form of metastatic cancer. He is also noted to have what appeared to be metastatic lesions to the liver and an EGD today which confirmed the presence of an esophageal cancer. His EKG was abnormal and I was asked to render an opinion. Patient has history of coronary disease dates back to the . He states that he had a single episode of epigastric discomfort which prompted an evaluation leading to bypass surgery in 1990. This involved a CASTRO to the LAD, vein graft to the OM and vein graft to the PDA. More recent angiography has revealed total occlusion of his [facility] vessels with a single CASTRO to LAD remaining patent. Over the past 2 years the patient has had some symptoms of dyspnea with activity. He had multiple evaluations and eventually underwent an unsuccessful PCI for a complete total occlusion of the right coronary artery. The patient continues to be an active individual. He recently returned from [place] where he was required to walk for long distances. He is generally an active person who has no symptoms when walking on level ground. He does have an element of dyspnea while at ascending hills or stairs. He does not endorse any symptoms of chest discomfort either at rest or with activity. He does not have orthopnea or paroxysmal nocturnal dyspnea. He has not been aware of any palpitations or tachycardia. He does not have dizziness or lightheadedness. He cannot recall suffering a syncopal episode. Allergies Allergy/AdvReac Type Severity Reaction Status Date / Time Penicillins Allergy Intermediate HIVES Verified 05/18/18 10:29 Home Medications Home Medications Medication Instructions Recorded Confirmed Type atorvastatin 40 mg PO QPM 05/17/18 05/17/18 History carvedilol 25 mg PO QAM 05/17/18 05/17/18 History diltiazem HCl 120 mg PO QAM 05/17/18 05/17/18 History lisinopril 20 mg PO QPM 05/17/18 05/17/18 History metformin 1,000 mg PO BIDM 05/17/18 05/17/18 History sitagliptin [Januvia] 50 mg PO QAM 05/17/18 05/17/18 History Patient History Medical History Acute kidney injury Anemia Brain lesion Cancer Cerebrovascular accident R sided weakness more likely due to swelling from brain tumors Coronary artery disease Dyslipidemia Esophageal mass Anemia Diabetes HTN (hypertension) Heart disease Surgical History S/P triple vessel bypass Family History Other Cancer Diabetes Heart disease Hypertension Kidney disease Seizure Social History Communication Ability: Effective Beliefs That Will Affect Care: None marital status: Current Living Situation: Spouse current occupational status: retired Other Information That Helps Us Care for You: No Feels Safe at Home: Yes Smoking Status: Former smoker Hx Alcohol Use: No Hx Substance Use: No Review of Systems Complete. Pertinent positives known history of present illness. He feels that his right hand weakness has improved with chiropractic therapy. He also feels that his right leg is stronger and is anxious to walk. He denies any evidence of gastrointestinal bleeding such as melena or dark stools. He did not report any specific abdominal complaints. He has not had any trouble swallowing. He denied frequent indigestion. He has not had any recent constitutional symptoms such as fevers or chills. He denies any lower extremity edema. Physical Exam Vital Signs (Past 24 Hours): Last Vital Signs Temp 36.4 C L 05/18/18 12:31 Pulse 85 05/18/18 12:31 Resp 20 05/18/18 12:31 BP 144/78 H 05/18/18 12:31 Pulse Ox 100 05/18/18 12:31 Physical Exam: The patient is alert and oriented. Mood and affect appeared normal. He answered all questions appropriately. HEENT: Pupils are equal and reactive to light and accommodation. Extraocular movements are intact. The sclerae are anicteric. Neuro: Cranial nerves intact Neck: Patient's neck is supple. He has palpable carotid pulses bilaterally without bruits on auscultation. There is no evidence of jugular venous distention. The thyroid is not enlarged. Lungs: Clear to auscultation bilaterally. He has good air movement without use of accessory muscles. No rales wheezes or rhonchi. Cardiac: Heart demonstrates a regular rate and rhythm. Normal S1 and S2. No murmurs on examination. Chest: Well-healed sternotomy scar Pulses: The patient has palpable radial pulses bilaterally that are equal in intensity Extremities: There was no evidence of hypoperfusion. There is no cyanosis or clubbing. There is no edema. Skin: I did not appreciate any rashes on examination today. Results & Data Laboratory Results Abnormal Lab Results 05/17/18 05/17/18 05/17/18 16:02 19:36 23:44 WBC RBC Hgb Hct MCV MCH MCHC RDW Std Deviation RDW Coeff of Jeannette Plt Count MPV Immature Gran % (Auto) Neut % (Auto) Lymph % (Auto) [place] % (Auto) Eos % (Auto) Baso % (Auto) Immature Gran # (Auto) Neut # (Auto) Lymph # (Auto) [place] # (Auto) Eos # (Auto) Baso # (Auto) PT INR APTT PTT Ratio Sodium Potassium Chloride Carbon Dioxide Anion Gap BUN Creatinine Est Cr Clr Drug Dosing Est GFR ( Amer) Est GFR (Non-Af Amer) BUN/Creatinine Ratio Glucose POC Glucose 268 H 276 H 331 H Estimat Average Glucose Hemoglobin A1c Calcium Total Bilirubin AST ALT Alkaline Phosphatase Troponin I Total Protein Albumin Globulin Albumin/Globulin Ratio 05/18/18 05/18/18 05/18/18 05:59 06:15 06:15 WBC 5.40 RBC 3.22 L Hgb 9.1 L Hct 28.5 L MCV 88.5 MCH 28.3 MCHC 31.9 L RDW Std Deviation 53.5 H RDW Coeff of Jeannette 16.9 H Plt Count 198 MPV 10.1 Immature Gran % (Auto) 0.4 Neut % (Auto) 83.2 Lymph % (Auto) 14.4 [place] % (Auto) 2.0 Eos % (Auto) 0.0 Baso % (Auto) 0.0 Immature Gran # (Auto) 0.02 Neut # (Auto) 4.49 Lymph # (Auto) 0.78 L [place] # (Auto) 0.11 Eos # (Auto) 0.00 Baso # (Auto) 0.00 PT 12.4 H INR 1.2 H APTT 27.9 PTT Ratio 1.0 Sodium Potassium Chloride Carbon Dioxide Anion Gap BUN Creatinine Est Cr Clr Drug Dosing Est GFR ( Amer) Est GFR (Non-Af Amer) BUN/Creatinine Ratio Glucose POC Glucose 333 H Estimat Average Glucose Hemoglobin A1c Calcium Total Bilirubin AST ALT Alkaline Phosphatase Troponin I Total Protein Albumin Globulin Albumin/Globulin Ratio 05/18/18 05/18/18 05/18/18 06:15 06:15 06:15 WBC RBC Hgb Hct MCV MCH MCHC RDW Std Deviation RDW Coeff of Jeannette Plt Count MPV Immature Gran % (Auto) Neut % (Auto) Lymph % (Auto) [place] % (Auto) Eos % (Auto) Baso % (Auto) Immature Gran # (Auto) Neut # (Auto) Lymph # (Auto) [place] # (Auto) Eos # (Auto) Baso # (Auto) PT INR APTT PTT Ratio Sodium 134 L Potassium 4.5 Chloride 106 Carbon Dioxide 19 L Anion Gap 9.0 BUN 30 H Creatinine 1.84 H D Est Cr Clr Drug Dosing 39.1 Est GFR ( Amer) 42.4 Est GFR (Non-Af Amer) 36.6 BUN/Creatinine Ratio 16.5 Glucose 300 H POC Glucose Estimat Average Glucose 174 Hemoglobin A1c 7.7 H Calcium 8.2 L Total Bilirubin 0.5 AST 11 L ALT 11 L Alkaline Phosphatase 132 H Troponin I < 0.015 Total Protein 7.7 Albumin 2.8 L Globulin 4.9 H Albumin/Globulin Ratio 0.6 L 05/18/18 12:28 WBC RBC Hgb Hct MCV MCH MCHC RDW Std Deviation RDW Coeff of Jeannette Plt Count MPV Immature Gran % (Auto) Neut % (Auto) Lymph % (Auto) [place] % (Auto) Eos % (Auto) Baso % (Auto) Immature Gran # (Auto) Neut # (Auto) Lymph # (Auto) [place] # (Auto) Eos # (Auto) Baso # (Auto) PT INR APTT PTT Ratio Sodium Potassium Chloride Carbon Dioxide Anion Gap BUN Creatinine Est Cr Clr Drug Dosing Est GFR ( Amer) Est GFR (Non-Af Amer) BUN/Creatinine Ratio Glucose POC Glucose 310 H Estimat Average Glucose Hemoglobin A1c Calcium Total Bilirubin AST ALT Alkaline Phosphatase Troponin I Total Protein Albumin Globulin Albumin/Globulin Ratio Diagnostic Findings Patient multiple imaging studies demonstrating 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 Echocardiogram demonstrated preserved LV systolic function with some regional wall motion abnormalities. No significant valvular heart disease. No pericardial effusion. ECG Additional Comments: EKG demonstrated normal sinus rhythm with some diffuse T- wave inversions minor ST segment depressions.
[2018-05-18] MEDS ORDERED: PHARMACY GLYCEMIC MGMT CONSULT PRN (16:40)
[2018-05-18] MEDS ORDERED: INSULIN GLARGINE SOLOSTAR 100 UNITS/ML 3 ML PEN SC ONE (17:00)
[2018-05-18] MEDS: ATORVASTATIN 40 MG TAB PO SCH (20:45)
--- NOTE | 2018-05-18 21:03 | Hospitalist Progress Note ---
Date of Service May 18, 2018 Assessment & Plan (1) Right sided weakness: Right-sided weakness/left parietal lobe lesion seen on head CT MRI brain with no stroke, no acute intracranial hemorrhage, but with a 1 cm enhancing lesion within the left frontoparietal convexity with extensive associ ated vasogenic edema. There is minimal associated mass effect. There is also a 1 cm enhancing lesion within the right cerebellar hemisphere with extensive vasogenic edema. Note is made of a 3 mm right occipital lobe lesion on axial image 10 of 23. There may be a 3 mm lesion within left cerebellar hemisphere. MRA head and neck with right internal carotid artery multifocal stenosis Carotid artery ultrasound with 50-69% ED stenosis Findings all likely consistent with metastatic presumed esophageal cancer given the large fungating mass seen on EGD -This is the cause of his focal neurological symptoms -DC aspirin given risk of intracranial hemorrhage and lack of acute infarct -Neurology was not consulted but not necessary at this point -Radiation oncology was consulted who plans on simulating him for whole brain radiation starting tomorrow for palliation -Increase Decadron as per radiation oncology to 4 mg every 6 hours for vasogenic edema in the brain (2) 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: See above. (3) Hypertension: Medications listed on profile include carvedilol 25 mg p.o. every morning, diltiazem 120 mg p.o. every morning and lisinopril 20 mg p.o. every afternoon. For now change carvedilol to 12.5 mg p.o. twice daily, hold diltiazem and lisinopril. Blood pressures in acceptable range (4) Diabetes mellitus: Holding Januvia and metformin. With hyperglycemia here -Consult glycemic pharmacy management -Continue on basal bolus regimen of insulin Hemoglobin A1c 7.7% (5) Hyperlipidemia LDL goal <70: Continue atorvastatin 40 mg in evening. (6) Acute kidney injury: Creatinine 1.54 upon admission, now up to 1.84 although he has been higher than this in the past with his creatinine He received IV fluids which can now be stopped (7) Anemia: Normocytic normochromic anemia with mildly elevated RDW progressing over the last year, however iron studies have been normal, B12 and folate normal both in February and again in April 2018. May be some component due to esophageal cancer, however more likely due to anemia of chronic kidney disease No evidence of gross GI bleeding -Follow CBC (8) Esophageal mass: After brain metastases discovered, CT of the chest abdomen pelvis was performed Esophagus appeared thickened EGD on 05/18 confirms large fungating partially obstructing mass in the esophagus-biopsies taken -Await pathology from biopsies but most likely presumed esophageal cancer with metastatic lesions seen in the brain, also with lesions in the liver and mul tiple lymph nodes, as well as some pulmonary nodules - CT abd/pelvis, Moderate wall thickening of the distal esophagus that extends to the gastroesophageal junction. Markedly enlarged upper abdominal lymph nodes and several hepatic metastases. These findings raise the possibility of esophageal adenocarcinoma. Bulky upper abdominal adenopathy narrows but does not occlude the main portal vein. -Radiation oncology consult appreciated-starting whole brain radiation in the near future -Medical oncology consultation appreciated-plan to follow-up as an outpatient after biopsy results and after radiation completed -The patient is not having dysphagia at this time-no need for esophageal stent but this is a possibility in the future -Needs PET scan as an outpatient -Overall very poor prognosis most likely-discussed with the patient today -On IV PPI-can be switched to p.o. tomorrow (9) Coronary artery disease: With history of CABG in 1990. This involved a CASTRO to the LAD, vein graft to the OM and vein graft to the PDA. More recent angiography has revealed total occlusion of his [place] vessels with a single CASTRO to LAD remaining patent. Over the past 2 years the patient has had some symptoms of dyspnea with activity. He had multiple evaluations and eventually underwent an unsuccessful PCI for a complete total occlusion of the right coronary artery. With abnormal ECG here with no old ECG to compare to but patient reports he has been told he has an abnormal appearing ECG in the past by his PCP No chest pain at all, troponin negative -He is not on aspirin as an outpatient as per his home med rec-holding this for now anyway given risk of intracranial hemorrhage as above -Continue carvedilol, lisinopril, atorvastatin -Appreciate cardiology consultation (10) Abnormal EKG: As above (11) CKD (chronic kidney disease) stage 3, GFR 30-59 ml/min: Baseline creatinine around 1.5-1.8-he is around baseline at this point -Avoid nephrotoxins -Renally dose medications when appropriate (12) Carotid artery stenosis: With our ICA stenosis 50-69% on carotid artery ultrasound MRA suggestive of moderate to severe proximal R ICA stenosis but did not have appropriate contrast -On atorvastatin -No need for surgical evaluation at this point especially in light of metastatic cancer (13) DVT prophylaxis: SCDs only given risk of intracranial hemorrhage with multiple brain metastases Disposition-remain on telemetry for now but can likely transition to medical floor tomorrow versus discharge to home if stable after whole brain radiation simulation Subjective Patient reports continued numbness and weakness in the right hand especially. He asked about his prognosis and how much time he has left. Denies chest pain or shortness of breath. He denies nausea or vomiting and is tolerating well. Denies dysphagia or odynophagia. Denies dark stools or diarrhea. No blood in the stool. I discussed the case with cardiology on the phone. Telemetry with his rhythm with rates in the 70s-90s Review of Systems All systems reviewed & are unremarkable except as noted in HPI & below Physical Exam Vital Signs (Past 24 Hours): Last Vital Signs Temp 36.2 C L 05/18/18 20:12 Pulse 80 05/18/18 20:12 Resp 16 05/18/18 20:12 BP 153/76 H 05/18/18 20:12 Pulse Ox 99 05/18/18 20:12 Constitutional: WD/WN, vitals as above Eyes: PERRL, conjunctivae normal, anicteric sclerae ENMT: external ear and nose normal, oropharynx normal Neck: trachea midline, no thyromegaly Respiratory: normal respiratory effort, lungs clear to auscultation Cardiovascular: RRR, no murmur, no edema Gastrointestinal (Abdomen): normal bowel sounds, soft, nontender, no hepatosplenomegaly Musculoskeletal: Extremities: extremities normal to inspection; no cyanosis and no clubbing Skin: no rashes, warm and dry Neurologic: moves all extremities and awake; no focal motor deficits Psychiatric: A+Ox3, euthymic affect Results & Data Laboratory Results 05/19/18 05/19/18 05/18/18 Range/Units 03:43 00:05 20:38 PT (9.0-12.0) Seconds INR (0.9-1.1) APTT (21.0-31.0) Seconds PTT Ratio Sodium (136-145) mmol/L Potassium (3.5-5.1) mmol/L Chloride (98-107) mmol/L Carbon Dioxide (21-32) mmol/L Anion Gap (3-11) BUN (7-18) mg/dl Creatinine (0.6-1.4) mg/dl Est Cr Clr Drug Dosing ml/min Est GFR ( Amer) Est GFR (Non-Af Amer) BUN/Creatinine Ratio (10-20) Glucose (70-99) mg/dl POC Glucose 247 H 236 H 273 H (70-99) Estimat Average Glucose mg/dl Hemoglobin A1c (4.5-5.6) % Calcium (8.5-10.1) mg/dl Total Bilirubin (0.2-1) mg/dl AST (15-37) U/L ALT (12-78) U/L Alkaline Phosphatase (45-117) U/L Troponin I (0-0.045) ng/ml Total Protein (6.4-8.2) gm/dl Albumin (3.4-5.0) gm/dl Globulin (2.5-4.0) gm/dl Albumin/Globulin Ratio (0.9-2) 05/18/18 05/18/18 05/18/18 Range/Units 16:07 16:06 12:28 PT (9.0-12.0) Seconds INR (0.9-1.1) APTT (21.0-31.0) Seconds PTT Ratio Sodium (136-145) mmol/L Potassium (3.5-5.1) mmol/L Chloride (98-107) mmol/L Carbon Dioxide (21-32) mmol/L Anion Gap (3-11) BUN (7-18) mg/dl Creatinine (0.6-1.4) mg/dl Est Cr Clr Drug Dosing ml/min Est GFR ( Amer) Est GFR (Non-Af Amer) BUN/Creatinine Ratio (10-20) Glucose (70-99) mg/dl POC Glucose 339 H 342 H 310 H (70-99) Estimat Average Glucose mg/dl Hemoglobin A1c (4.5-5.6) % Calcium (8.5-10.1) mg/dl Total Bilirubin (0.2-1) mg/dl AST (15-37) U/L ALT (12-78) U/L Alkaline Phosphatase (45-117) U/L Troponin I (0-0.045) ng/ml Total Protein (6.4-8.2) gm/dl Albumin (3.4-5.0) gm/dl Globulin (2.5-4.0) gm/dl Albumin/Globulin Ratio (0.9-2) 05/18/18 05/18/18 05/18/18 Range/Units 06:15 06:15 06:15 PT (9.0-12.0) Seconds INR (0.9-1.1) APTT (21.0-31.0) Seconds PTT Ratio Sodium 134 L (136-145) mmol/L Potassium 4.5 (3.5-5.1) mmol/L Chloride 106 (98-107) mmol/L Carbon Dioxide 19 L (21-32) mmol/L Anion Gap 9.0 (3-11) BUN 30 H (7-18) mg/dl Creatinine 1.84 H D (0.6-1.4) mg/dl Est Cr Clr Drug Dosing 39.1 ml/min Est GFR ( Amer) 42.4 Est GFR (Non-Af Amer) 36.6 BUN/Creatinine Ratio 16.5 (10-20) Glucose 300 H (70-99) mg/dl POC Glucose (70-99) Estimat Average Glucose 174 mg/dl Hemoglobin A1c 7.7 H (4.5-5.6) % Calcium 8.2 L (8.5-10.1) mg/dl Total Bilirubin 0.5 (0.2-1) mg/dl AST 11 L (15-37) U/L ALT 11 L (12-78) U/L Alkaline Phosphatase 132 H (45-117) U/L Troponin I < 0.015 (0-0.045) ng/ml Total Protein 7.7 (6.4-8.2) gm/dl Albumin 2.8 L (3.4-5.0) gm/dl Globulin 4.9 H (2.5-4.0) gm/dl Albumin/Globulin Ratio 0.6 L (0.9-2) 05/18/18 Range/Units 06:15 PT 12.4 H (9.0-12.0) Seconds INR 1.2 H (0.9-1.1) APTT 27.9 (21.0-31.0) Seconds PTT Ratio 1.0 Sodium (136-145) mmol/L Potassium (3.5-5.1) mmol/L Chloride (98-107) mmol/L Carbon Dioxide (21-32) mmol/L Anion Gap (3-11) BUN (7-18) mg/dl Creatinine (0.6-1.4) mg/dl Est Cr Clr Drug Dosing ml/min Est GFR ( Amer) Est GFR (Non-Af Amer) BUN/Creatinine Ratio (10-20) Glucose (70-99) mg/dl POC Glucose (70-99) Estimat Average Glucose mg/dl Hemoglobin A1c (4.5-5.6) % Calcium (8.5-10.1) mg/dl Total Bilirubin (0.2-1) mg/dl AST (15-37) U/L ALT (12-78) U/L Alkaline Phosphatase (45-117) U/L Troponin I (0-0.045) ng/ml Total Protein (6.4-8.2) gm/dl Albumin (3.4-5.0) gm/dl Globulin (2.5-4.0) gm/dl Albumin/Globulin Ratio (0.9-2)
[2018-05-19] MEDS: INSULIN ASPART 100 UNITS/ML 3 ML PEN SC SCH ×5 (00:08→17:53)
[2018-05-19] MEDS: DEXAMETHASONE SOD PHOSPHATE 4 MG in SYRINGE 0 ML IV SCH ×4 (00:14→17:54)
[2018-05-19 07:20] LABS: Hematocrit (blood only) 27.1 % (42-52); Hemoglobin 8.7 g/dL (14.0-18.0); Immature Granulocytes # (auto) 0.03 K/uL (0.00-0.02); Immature Granulocytes % (auto) 0.3 %; Lymphocytes # (auto) 0.97 K/uL (1.2-3.4); Lymphocytes % (auto) 10.3 %; Mean Corpuscular Hgb Conc 32.1 g/dL (32-36); Mean Corpuscular Volume 89.1 fL (80-100); Mean Platelet Volume 10.8 fL (7.4-10.4); Monocytes # (auto) 0.38 K/uL (0.11-0.59); Neutrophils # (auto) 8.06 K/uL (1.4-6.5); Neutrophils % (auto) 85.4 %; Platelet Count 216 K/uL (130-400); RDW Coefficient of Variation 17.2 % (11.5-14.5); RDW Standard Deviation 54.2 fL (36.4-46.3); Red Blood Count 3.04 M/uL (4.7-6.1); White Blood Count 9.44 K/uL (4.8-10.8)
[2018-05-19 07:47] LABS: RBC Morphology Unremarkable
[2018-05-19 07:56] LABS: Albumin Level 3.1 gm/dl (3.4-5.0); BUN Creatinine Ratio 19.2 (10-20); Calcium 8.3 mg/dl (8.5-10.1); Creatinine Clr Calc Pharmacy 39.1 ml/min; Est GFR (African American) 42.4; Est GFR (Non-African American) 36.6; Potassium 4.4 mmol/L (3.5-5.1)
[2018-05-19 07:59] LABS: Albumin Globulin Ratio 0.7 (0.9-2); Bilirubin,Total 0.3 mg/dl (0.2-1); Globulin 4.5 gm/dl (2.5-4.0); Total Protein 7.6 gm/dl (6.4-8.2)
[2018-05-19] MEDS: CARVEDILOL 25 MG TAB PO SCH (07:59)
--- NOTE | 2018-05-19 08:45 | Progress Note ---
DATE: 05/19/2018 DIAGNOSES: 1. Metastatic esophageal cancer. 2. Normocytic normochromic anemia. 3. Anemia of renal insufficiency. 4. Hypoalbuminemia. SUBJECTIVE: Cheko was seen and examined at bedside. He successfully underwent an EGD yesterday revealing a near obstructing distal esophageal mass with biopsies pending. He continues [id number] dexamethasone and should start whole-brain radiation soon. Unfortunately, I cannot give definitive treatment recommendations until HER-2/chelo status is established. Cheko understands he will receive whole-brain radiation first followed by salvage chemotherapy. Perhaps, general surgery should be consulted to have MediPort placed in anticipation of future therapeutics. Cheko offers no complaints. He is tolerating his regular diet. OBJECTIVE: GENERAL: Very pleasant 67-year-old gentleman in no acute distress. VITAL SIGNS: Temperature 36.4, pulse 76, respiratory rate 18, blood pressure 136/84. SKIN: Without rash or lesion. HEENT: Oral mucosa is normal. NECK: Supple. Trachea midline. HEART: Regular rate and rhythm. LUNGS: Clear to auscultation bilaterally. ABDOMEN: Soft, nontender, nondistended. EXTREMITIES: No clubbing, cyanosis or edema. NEUROLOGIC: Grossly intact. LABORATORY DATA: WBC count 9440, hemoglobin 8.7, platelet count 216,000. Sodium 134, potassium 4.4, chloride 107, carbon dioxide 19, creatinine 1.84, BUN 35. IMPRESSION: 1. Cerebral metastatic disease. 2. Metastatic esophageal cancer. 3. Anemia of renal insufficiency. 4. Hypoalbuminemia. 5. Chronic renal disease. PLAN: I visited with Mr. Milner at bedside this morning. He believes neurologic dysfunction from admission is slowly improving. I anticipate whole-brain radiation to begin here in the next day or two. Again, biopsies were taken from yesterday's EGD revealing a nonobstructive, esophageal cancer, most likely adenocarcinoma. Await HER-2/chelo status to determine the best chemotherapeutic choice moving forward. Would continue corticosteroids, perhaps 4 mg of dexamethasone orally every 6-8 hours. We will slowly wean over time. I have nothing further to add immediately. We will make arrangements for Mr. Milner to follow up as outpatient. [facility]
[2018-05-19] MEDS ORDERED: INSULIN GLARGINE SOLOSTAR 100 UNITS/ML 3 ML PEN SC SCH ×2 (09:00)
[2018-05-19] MEDS ORDERED: LORazepam 0.5 MG TAB PO PRN (10:48)
--- NOTE | 2018-05-19 11:07 | Gastroenterology Progress Note ---
Date of Service May 19, 2018 Assessment & Plan (1) Right sided weakness: (2) Esophageal mass: Pt is a 67 y/o male who presented w R hand weakness, numbness, difficulty w balance; upon evaluation no signs of acute brain infarct but found to have brain lesions concerning for mets. Subsequent imaging of chest, abd/pelvis CT showed distal esophageal thickening extending to GE junction, enlarged esophageal lymph nodes, extensive abd lymphadenompathy w hepatic mets, findings concerning for esophageal adenocarcinoma. EGD done 05/18 showed partially obstructing, likely malignant esophageal tumor was found in the lower third of the esophagus, bx results pending. Normal exam otherwise. - Awaiting esophageal bx results - If any issues w dysphagia, may need to consider esophageal stent palcement - Consider PET -CT or liver bx to prove mets - F/U w Oncology and Radiology Oncology - No new GI plans today, will sign off; pls recall if new questions/concerns arise. Supervising Physician Co-Signing Physician Notes I have discussed the patient's management with Beverly. Please refer to the nurse practitioner's note for the documented findings and plan of care. Await path result. F/U with Oncology. Recall if needed Subjective Pt feels well, denies any CP, SOB. Ate solid breakfast well w/o difficulty or painful swallowing, n/v. He also denies any abd pain. Physical Exam Vital Signs (Past 24 Hours): Last Vital Signs Temp 36.4 C L 05/19/18 07:25 Pulse 76 05/19/18 07:25 Resp 18 05/19/18 07:25 BP 136/84 05/19/18 07:25 Pulse Ox 99 05/19/18 07:25 Constitutional: WD/WN, vitals as above well groomed, cooperative and comfortable Eyes: PERRL, conjunctivae normal, anicteric sclerae ENMT: external ear and nose normal, oropharynx normal Respiratory: normal respiratory effort, lungs clear to auscultation Cardiovascular: RRR, no murmur, no edema Gastrointestinal (Abdomen): normal bowel sounds, soft, nontender, no hepatosplenomegaly Skin: no rashes, warm and dry no jaundice Neurologic: Motor/Sensory: no asterixis Psychiatric: A+Ox3, euthymic affect Lymphatic: no lymphedema Results & Data Laboratory Results Laboratory Results - last 72 hr 03/24/19 03/24/19 03/24/19 03:50 03:50 03:50 WBC 6.94 RBC 3.34 L Hgb 9.5 L Hct 29.7 L MCV 88.9 MCH 28.4 MCHC 32.0 RDW Std Deviation 54.1 H RDW Coeff of Jeannette 17.0 H Plt Count 209 MPV 10.5 H Immature Gran % (Auto) 0.7 Neut % (Auto) 60.9 Lymph % (Auto) 23.9 Pike % (Auto) 11.2 Eos % (Auto) 3.0 Baso % (Auto) 0.3 Immature Gran # (Auto) 0.05 H Neut # (Auto) 4.22 Lymph # (Auto) 1.66 Pike # (Auto) 0.78 H Eos # (Auto) 0.21 Baso # (Auto) 0.02 RBC Morphology PT 12.4 H INR 1.2 H APTT 27.7 PTT Ratio 1.0 Sodium 134 L Potassium 4.5 Chloride 105 Carbon Dioxide 22 Anion Gap 7.0 BUN 20 H Creatinine 1.54 H Est Cr Clr Drug Dosing 46.7 Est GFR ( Amer) 52.6 Est GFR (Non-Af Amer) 45.4 BUN/Creatinine Ratio 12.8 Glucose 216 H POC Glucose Estimat Average Glucose Hemoglobin A1c Calcium 8.9 Magnesium 1.7 L Total Bilirubin 0.5 AST 12 L ALT 12 Alkaline Phosphatase 147 H Troponin I < 0.015 Total Protein 8.4 H Albumin 3.2 L Globulin 5.2 H Albumin/Globulin Ratio 0.6 L Triglycerides Cholesterol LDL Cholesterol, Calc VLDL Cholesterol, Calc HDL Cholesterol Cholesterol/HDL Ratio Nasal Screen MRSA (PCR) Hepatitis C Ab Screen Blood Type Antibody Screen 05/17/18 05/17/18 05/17/18 03:50 04:22 04:23 WBC RBC Hgb Hct MCV MCH MCHC RDW Std Deviation RDW Coeff of Jeannette Plt Count MPV Immature Gran % (Auto) Neut % (Auto) Lymph % (Auto) Pike % (Auto) Eos % (Auto) Baso % (Auto) Immature Gran # (Auto) Neut # (Auto) Lymph # (Auto) Pike # (Auto) Eos # (Auto) Baso # (Auto) RBC Morphology PT INR APTT PTT Ratio Sodium Potassium Chloride Carbon Dioxide Anion Gap BUN Creatinine Est Cr Clr Drug Dosing Est GFR ( Amer) Est GFR (Non-Af Amer) BUN/Creatinine Ratio Glucose POC Glucose 209 H Estimat Average Glucose Hemoglobin A1c Calcium Magnesium Total Bilirubin AST ALT Alkaline Phosphatase Troponin I Total Protein Albumin Globulin Albumin/Globulin Ratio Triglycerides Cholesterol LDL Cholesterol, Calc VLDL Cholesterol, Calc HDL Cholesterol Cholesterol/HDL Ratio Nasal Screen MRSA (PCR) Hepatitis C Ab Screen Neg Blood Type O Positive Antibody Screen NEGATIVE 05/17/18 05/17/18 05/17/18 09:30 09:39 10:12 WBC RBC Hgb Hct MCV MCH MCHC RDW Std Deviation RDW Coeff of Jeannette Plt Count MPV Immature Gran % (Auto) Neut % (Auto) Lymph % (Auto) Pike % (Auto) Eos % (Auto) Baso % (Auto) Immature Gran # (Auto) Neut # (Auto) Lymph # (Auto) Pike # (Auto) Eos # (Auto) Baso # (Auto) RBC Morphology PT INR APTT PTT Ratio Sodium Potassium Chloride Carbon Dioxide Anion Gap BUN Creatinine Est Cr Clr Drug Dosing Est GFR ( Amer) Est GFR (Non-Af Amer) BUN/Creatinine Ratio Glucose POC Glucose 196 H Estimat Average Glucose Hemoglobin A1c Calcium Magnesium Total Bilirubin AST ALT Alkaline Phosphatase Troponin I < 0.015 Total Protein Albumin Globulin Albumin/Globulin Ratio Triglycerides 140 Cholesterol 122 LDL Cholesterol, Calc 68 VLDL Cholesterol, Calc 28 HDL Cholesterol 26 Cholesterol/HDL Ratio 5 Nasal Screen MRSA (PCR) Negative Hepatitis C Ab Screen Blood Type Antibody Screen 05/17/18 05/17/18 05/17/18 11:31 16:02 19:36 WBC RBC Hgb Hct MCV MCH MCHC RDW Std Deviation RDW Coeff of Jeannette Plt Count MPV Immature Gran % (Auto) Neut % (Auto) Lymph % (Auto) Pike % (Auto) Eos % (Auto) Baso % (Auto) Immature Gran # (Auto) Neut # (Auto) Lymph # (Auto) Pike # (Auto) Eos # (Auto) Baso # (Auto) RBC Morphology PT INR APTT PTT Ratio Sodium Potassium Chloride Carbon Dioxide Anion Gap BUN Creatinine Est Cr Clr Drug Dosing Est GFR ( Amer) Est GFR (Non-Af Amer) BUN/Creatinine Ratio Glucose POC Glucose 197 H 268 H 276 H Estimat Average Glucose Hemoglobin A1c Calcium Magnesium Total Bilirubin AST ALT Alkaline Phosphatase Troponin I Total Protein Albumin Globulin Albumin/Globulin Ratio Triglycerides Cholesterol LDL Cholesterol, Calc VLDL Cholesterol, Calc HDL Cholesterol Cholesterol/HDL Ratio Nasal Screen MRSA (PCR) Hepatitis C Ab Screen Blood Type Antibody Screen 05/17/18 05/18/18 05/18/18 23:44 05:59 06:15 WBC 5.40 RBC 3.22 L Hgb 9.1 L Hct 28.5 L MCV 88.5 MCH 28.3 MCHC 31.9 L RDW Std Deviation 53.5 H RDW Coeff of Jeannette 16.9 H Plt Count 198 MPV 10.1 Immature Gran % (Auto) 0.4 Neut % (Auto) 83.2 Lymph % (Auto) 14.4 Pike % (Auto) 2.0 Eos % (Auto) 0.0 Baso % (Auto) 0.0 Immature Gran # (Auto) 0.02 Neut # (Auto) 4.49 Lymph # (Auto) 0.78 L Pike # (Auto) 0.11 Eos # (Auto) 0.00 Baso # (Auto) 0.00 RBC Morphology PT INR APTT PTT Ratio Sodium Potassium Chloride Carbon Dioxide Anion Gap BUN Creatinine Est Cr Clr Drug Dosing Est GFR ( Amer) Est GFR (Non-Af Amer) BUN/Creatinine Ratio Glucose POC Glucose 331 H 333 H Estimat Average Glucose Hemoglobin A1c Calcium Magnesium Total Bilirubin AST ALT Alkaline Phosphatase Troponin I Total Protein Albumin Globulin Albumin/Globulin Ratio Triglycerides Cholesterol LDL Cholesterol, Calc VLDL Cholesterol, Calc HDL Cholesterol Cholesterol/HDL Ratio Nasal Screen MRSA (PCR) Hepatitis C Ab Screen Blood Type Antibody Screen 05/18/18 05/18/18 05/18/18 06:15 06:15 06:15 WBC RBC Hgb Hct MCV MCH MCHC RDW Std Deviation RDW Coeff of Jeannette Plt Count MPV Immature Gran % (Auto) Neut % (Auto) Lymph % (Auto) Pike % (Auto) Eos % (Auto) Baso % (Auto) Immature Gran # (Auto) Neut # (Auto) Lymph # (Auto) Pike # (Auto) Eos # (Auto) Baso # (Auto) RBC Morphology PT 12.4 H INR 1.2 H APTT 27.9 PTT Ratio 1.0 Sodium 134 L Potassium 4.5 Chloride 106 Carbon Dioxide 19 L Anion Gap 9.0 BUN 30 H Creatinine 1.84 H D Est Cr Clr Drug Dosing 39.1 Est GFR ( Amer) 42.4 Est GFR (Non-Af Amer) 36.6 BUN/Creatinine Ratio 16.5 Glucose 300 H POC Glucose Estimat Average Glucose 174 Hemoglobin A1c 7.7 H Calcium 8.2 L Magnesium Total Bilirubin 0.5 AST 11 L ALT 11 L Alkaline Phosphatase 132 H Troponin I Total Protein 7.7 Albumin 2.8 L Globulin 4.9 H Albumin/Globulin Ratio 0.6 L Triglycerides Cholesterol LDL Cholesterol, Calc VLDL Cholesterol, Calc HDL Cholesterol Cholesterol/HDL Ratio Nasal Screen MRSA (PCR) Hepatitis C Ab Screen Blood Type Antibody Screen 05/18/18 05/18/18 05/18/18 06:15 12:28 16:06 WBC RBC Hgb Hct MCV MCH MCHC RDW Std Deviation RDW Coeff of Jeannette Plt Count MPV Immature Gran % (Auto) Neut % (Auto) Lymph % (Auto) Pike % (Auto) Eos % (Auto) Baso % (Auto) Immature Gran # (Auto) Neut # (Auto) Lymph # (Auto) Pike # (Auto) Eos # (Auto) Baso # (Auto) RBC Morphology PT INR APTT PTT Ratio Sodium Potassium Chloride Carbon Dioxide Anion Gap BUN Creatinine Est Cr Clr Drug Dosing Est GFR ( Amer) Est GFR (Non-Af Amer) BUN/Creatinine Ratio Glucose POC Glucose 310 H 342 H Estimat Average Glucose Hemoglobin A1c Calcium Magnesium Total Bilirubin AST ALT Alkaline Phosphatase Troponin I < 0.015 Total Protein Albumin Globulin Albumin/Globulin Ratio Triglycerides Cholesterol LDL Cholesterol, Calc VLDL Cholesterol, Calc HDL Cholesterol Cholesterol/HDL Ratio Nasal Screen MRSA (PCR) Hepatitis C Ab Screen Blood Type Antibody Screen 05/18/18 05/18/18 05/19/18 16:07 20:38 00:05 WBC RBC Hgb Hct MCV MCH MCHC RDW Std Deviation RDW Coeff of Jeannette Plt Count MPV Immature Gran % (Auto) Neut % (Auto) Lymph % (Auto) Pike % (Auto) Eos % (Auto) Baso % (Auto) Immature Gran # (Auto) Neut # (Auto) Lymph # (Auto) Pike # (Auto) Eos # (Auto) Baso # (Auto) RBC Morphology PT INR APTT PTT Ratio Sodium Potassium Chloride Carbon Dioxide Anion Gap BUN Creatinine Est Cr Clr Drug Dosing Est GFR ( Amer) Est GFR (Non-Af Amer) BUN/Creatinine Ratio Glucose POC Glucose 339 H 273 H 236 H Estimat Average Glucose Hemoglobin A1c Calcium Magnesium Total Bilirubin AST ALT Alkaline Phosphatase Troponin I Total Protein Albumin Globulin Albumin/Globulin Ratio Triglycerides Cholesterol LDL Cholesterol, Calc VLDL Cholesterol, Calc HDL Cholesterol Cholesterol/HDL Ratio Nasal Screen MRSA (PCR) Hepatitis C Ab Screen Blood Type Antibody Screen 05/19/18 05/19/18 05/19/18 03:43 06:53 06:53 WBC 9.44 RBC 3.04 L Hgb 8.7 L Hct 27.1 L MCV 89.1 MCH 28.6 MCHC 32.1 RDW Std Deviation 54.2 H RDW Coeff of Jeannette 17.2 H Plt Count 216 MPV 10.8 H Immature Gran % (Auto) 0.3 Neut % (Auto) 85.4 Lymph % (Auto) 10.3 Pike % (Auto) 4.0 Eos % (Auto) 0.0 Baso % (Auto) 0.0 Immature Gran # (Auto) 0.03 H Neut # (Auto) 8.06 H Lymph # (Auto) 0.97 L Pike # (Auto) 0.38 Eos # (Auto) 0.00 Baso # (Auto) 0.00 RBC Morphology Unremarkable PT INR APTT PTT Ratio Sodium 134 L Potassium 4.4 Chloride 107 Carbon Dioxide 19 L Anion Gap 9.0 BUN 35 H Creatinine 1.84 H Est Cr Clr Drug Dosing 39.1 Est GFR ( Amer) 42.4 Est GFR (Non-Af Amer) 36.6 BUN/Creatinine Ratio 19.2 Glucose 260 H POC Glucose 247 H Estimat Average Glucose Hemoglobin A1c Calcium 8.3 L Magnesium 2.0 Total Bilirubin 0.3 AST 13 L ALT 14 Alkaline Phosphatase 121 H Troponin I Total Protein 7.6 Albumin 3.1 L Globulin 4.5 H Albumin/Globulin Ratio 0.7 L Triglycerides Cholesterol LDL Cholesterol, Calc VLDL Cholesterol, Calc HDL Cholesterol Cholesterol/HDL Ratio Nasal Screen MRSA (PCR) Hepatitis C Ab Screen Blood Type Antibody Screen 05/19/18 07:14 WBC RBC Hgb Hct MCV MCH MCHC RDW Std Deviation RDW Coeff of Jeannette Plt Count MPV Immature Gran % (Auto) Neut % (Auto) Lymph % (Auto) Pike % (Auto) Eos % (Auto) Baso % (Auto) Immature Gran # (Auto) Neut # (Auto) Lymph # (Auto) Pike # (Auto) Eos # (Auto) Baso # (Auto) RBC Morphology PT INR APTT PTT Ratio Sodium Potassium Chloride Carbon Dioxide Anion Gap BUN Creatinine Est Cr Clr Drug Dosing Est GFR ( Amer) Est GFR (Non-Af Amer) BUN/Creatinine Ratio Glucose POC Glucose 272 H Estimat Average Glucose Hemoglobin A1c Calcium Magnesium Total Bilirubin AST ALT Alkaline Phosphatase Troponin I Total Protein Albumin Globulin Albumin/Globulin Ratio Triglycerides Cholesterol LDL Cholesterol, Calc VLDL Cholesterol, Calc HDL Cholesterol Cholesterol/HDL Ratio Nasal Screen MRSA (PCR) Hepatitis C Ab Screen Blood Type Antibody Screen
--- NOTE | 2018-05-19 11:09 | Pharmacy Report ---
Pharmacy Glycemic Short Note 2 - Date of Service May 19, 2018 - Glycemic Short BSG Results (Last 24 hours): 05/18/18 05/18/18 05/18/18 12:28 16:06 16:07 Glucose POC Glucose 310 H 342 H 339 H 05/18/18 05/19/18 05/19/18 20:38 00:05 03:43 Glucose POC Glucose 273 H 236 H 247 H 05/19/18 05/19/18 06:53 07:14 Glucose 260 H POC Glucose 272 H OUTPATIENT ANTIDIABETIC REGIMEN: * Metformin 1gm PO BID * Sitagliptin 50mg PO daily * A1c = 7.7% ASSESSMENT: 05/19/18 * Mr. Milner received a total of 81 units of insulin yesterday (30 units of basal insulin). * Fasting bsg of 260 this morning is high and most likely due to the dexamethasone 4mg iv q6h. * Will increase basal insulin dose to 20 units bid and will attempt to transition to once daily administration in preparation for discharge home. * Will tighten CF and CR to help offset hyperglycemia as post-prandial bsg's have been elevated despite increases in basal and bolus insulin. * Midnight and 04 checks added. 05/18 * Type 2 diabetic admitted for neuro symptoms, 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 * Dexamethasone added for vasogenic edema and BSGs have climbed into the 300s * Current BSG pattern suggests basal insulin deficiency * Would recommend the following changes to insulin regimen based upon pt weight and moderate stress level with ATC IV dexamethasone administration PLAN FOR INPATIENT GLYCEMIC CONTROL: * Hold outpatient oral diabetes medications * Basal insulin * Lantus 20 units SQ BID- increase * Bolus insulin * NovoLog per scale ACHS or Q6hrs while NPO * Goal Range: Low 110 mg/dL - High 140 mg/dL * Correction Factor: 15 mg/dL/unit * Nutritional / Prandial insulin per carb ratio of 1 unit per 5 grams CHO consumed PLAN FOR DISCHARGE: * Would recommend decreasing the metformin dose on discharge due to renal dysfunction. May resume Januvia 50mg qam assuming renal function does not further worsen. Pt will most likely benefit from a once daily basal insulin dose plus prandial coverage as an outpatient. The steroid selection and dose will determine the amount of insulin coverage needed.
[2018-05-19] MEDS ORDERED: INSULIN HUMAN REGULAR PER UNIT 5 UNITS in SYRINGE 4.95 ML IV ONE (11:30)
--- NOTE | 2018-05-19 17:45 | Discharge Summary ---
Date of Service May 19, 2018 Admission HPI Per Admitting Provider The patient is a 67-year-old male who presents to the emergency department with complaint of the development of right hand numbness 2 days ago, followed by weakness in that hand, and inability to write. The following day began to develop balance issues when trying to walk, with leaning toward the right, and felt as though his right leg was weak compared to left. He has had no difficulty with swallowing or speech, no difficulty with memory or recall, no difficulty with higher thought processes. He has never had symptoms like these in the past. He reports that he sees a physician at [facility], and yearly has daniel ts of his carotid arteries and test for peripheral arterial disease, and all have been normal. He does not report that he gets periodic injections with Dr. Lara for anemia. 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, Right hand weakness Discharge Exam Constitutional WD/WN, vitals as above Eyes PERRL, conjunctivae normal, anicteric sclerae ENMT external ear and nose normal, oropharynx normal Neck trachea midline, no thyromegaly Respiratory normal respiratory effort, lungs clear to auscultation Cardiovascular RRR, no murmur, no edema Gastrointestinal (Abdomen) normal bowel sounds, soft, nontender, no hepatosplenomegaly Musculoskeletal Extremities: extremities normal to inspection; no cyanosis and no clubbing Skin no rashes, warm and dry Neurologic moves all extremities, + focal motor deficit (some mild weakness in right hand hide or skin buffer) and awake Psychiatric A+Ox3, euthymic affect Discharge Data Allergies Allergy/AdvReac Type Severity Reaction Status Date / Time Penicillins Allergy Intermediate HIVES Verified 05/18/18 10:29 Consultations Oncology Radiation Oncology Gastroenterology Cardiology Procedures Performed Operation Date: 05/18/18 08:30 Actual Procedures p EGD Biopsy Cytology - Gume Finney MD Ordered Studies 05/17/18 04:16 CT head/brain wo con Urgent 05/17/18 06:04 MR brain wo/w con Stat 05/17/18 06:25 MR angio head wo con Stat MR angio neck wo con Stat 05/17/18 10:16 CT abd pelvis IV con only Routine CT chest w con Routine 05/18/18 09:36 US carotid doppler BI Routine CXR Hospital Course (1) Right sided weakness: Right-sided weakness/left parietal lobe lesion seen on head CT MRI brain with no stroke, no acute intracranial hemorrhage, but with a 1 cm enhancing lesion within the left frontoparietal convexity with extensive associated vasogenic edema. There is minimal associated mass effect. There is also a 1 cm enhancing lesion within the right cerebellar hemisphere with extensive vasogenic edema. Note is made of a 3 mm right occipital lobe lesion on axial image 10 of 23. There may be a 3 mm lesion within left cerebellar hemisphere. MRA head and neck with right internal carotid artery multifocal stenosis Carotid artery ultrasound with 50-69% ED stenosis Findings all likely consistent with metastatic presumed brain mets from esophageal cancer given the large fungating mass seen on EGD Weakness improved with treatment with steroids -This is the cause of his focal neurological symptoms -DCd aspirin given risk of intracranial hemorrhage and lack of acute infarct -Radiation oncology was consulted and he completed his simulation and first whole brain radiation treatment on the day of discharge -will continue daily x 9 more treatments -continue Decadron as per radiation oncology at 4 mg every 6 hours for vasogenic edema in the brain-will give 2 week supply and if to continue after radiation, will need refill (2) 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: See above. (3) Hypertension: BPs were on the low side at times -discontinued his diltiazem -continue lisinopril 20 mg daily -decreased Coreg to 12.5mg po bid (4) Diabetes mellitus: Held Januvia and metformin while inpatient With hyperglycemia here secondary to steroids, glucose in 200s-300s Hemoglobin A1c 7.7% which is inaccurate given present anemia -started on Lantus and will go home with 30 units qAM -may need to add on Novolog with meals but will defer to PCP -he will check his glucose qac and hs -dc metformin due to renal failure -continue Januvia upon discharge -maybe able to wean off insulin once off steroids (5) Hyperlipidemia LDL goal <70: Continue atorvastatin 40 mg in evening. (6) Acute kidney injury: Creatinine 1.54 upon admission, now up to 1.84 although he has been higher than this in the past with his creatinine (7) Anemia: Normocytic normochromic anemia with mildly elevated RDW progressing over the last year, however iron studies have been normal, B12 and folate normal both in February and again in April 2018. May be some component due to esophageal cancer, however more likely due to anemia of chronic kidney disease No evidence of gross GI bleeding -Follow CBC (8) Esophageal mass: After brain metastases discovered, CT of the chest abdomen pelvis was performed Esophagus appeared thickened EGD on 05/18 confirms large fungating partially obstructing mass in the esophagus-biopsies taken and final results pending at time of discharge -Await pathology from biopsies but most likely presumed esophageal cancer with metastatic lesions seen in the brain, also with lesions in the liver and multiple lymph nodes, as well as some pulmonary nodules - CT abd/pelvis, Moderate wall thickening of the distal esophagus that extends to the gastroesophageal junction. Markedly enlarged upper abdominal lymph nodes and several hepatic metastases. These findings raise the possibility of esophageal adenocarcinoma. Bulky upper abdominal adenopathy narrows but does not occlude the main portal vein. -Radiation oncology consult appreciated-startied whole brain radiation while inpatient -Medical oncology consultation appreciated-plan to follow-up as an outpatient a fter biopsy results and after radiation completed -The patient is not having dysphagia at this time-no need for esophageal stent but this is a possibility in the future -Needs PET scan as an outpatient -Overall very poor prognosis most likely-discussed with the patient -On IV PPI- switched to p.o. on discharge (9) Coronary artery disease: With history of CABG in 1990. This involved a CASTRO to the LAD, vein graft to the OM and vein graft to the PDA. More recent angiography has revealed total occlusion of his [place] vessels with a single CASTRO to LAD remaining patent. Over the past 2 years the patient has had some symptoms of dyspnea with activity. He had multiple evaluations and eventually underwent an unsuccessful PCI for a complete total occlusion of the right coronary artery. With abnormal ECG here with no old ECG to compare to but patient reports he has been told he has an abnormal appearing ECG in the past by his PCP No chest pain at all, troponin negative -He is not on aspirin as an outpatient as per his home med rec-holding this for now anyway given risk of intracranial hemorrhage as above -Continue carvedilol, lisinopril, atorvastatin -Appreciate cardiology consultation (10) Abnormal EKG: As above (11) CKD (chronic kidney disease) stage 3, GFR 30-59 ml/min: Baseline creatinine around 1.5-1.8-he is around baseline at this point -Avoid nephrotoxins -Renally dose medications when appropriate (12) Carotid artery stenosis: With our ICA stenosis 50-69% on carotid artery ultrasound MRA suggestive of moderate to severe proximal R ICA stenosis but did not have appropriate contrast -On atorvastatin -No need for surgical evaluation at this point especially in light of metastatic cancer (13) DVT prophylaxis: SCDs only given risk of intracranial hemorrhage with multiple brain metastases Disposition-stable for discharge to home Total Time Total Time Spent Total Time Spent (In Minutes): >30 min Total Time Includes: Examination of the Patient, Discharge Planning and Medication Reconciliation Discharge Plan Discharge Items Patient Disposition: Home - Home Health Services Reason For Visit: Suspected CVA, RIGHT SIDE WEAKNESS Discharge Diagnosis: Right sided weakness secondary to brain tumors, Suspected esophageal cancer Condition: Fair Discharge Goals: Diagnostic testing, Learn about illness and Therapeutic intervention Activity: Resume your previous activity Bathing: No limitations Exercise/Sports: As tolerated Non-emergency contact: Primary Care Provider, Slot Router and Oncologist Call non-emergency contact if: you have any medication questions, your symptoms worsen, your pain is not controlled, your pain is worsening, your pain is unusual for you, your pain is concerning for you and your temperature is above 101 Follow-up/Referrals: Valerie Mullins DO [Primary Care Provider] - 05/27/18 10:20 am (Please, follow up at Dr. Mullins's office with her associate, Chris AMEZQUITA, on FridayMay 27 at 10:20 am. *If you need to change this appointment, call the office at [phone].) Dmitriy Gurrola MD [Physician] - 05/20/18 10:30 am (Please, follow up at [facility] for a radiation treatment, TOMORROW, FridayMay 20 at 10:30 am. *This office is at the rear of this hospital. You will park behind the hospital in [address] and enter via [facility]. If you have any questions, call the office at [phone].) Dave Lara DO [Family Provider] - (Please, follow up at [facility] with Dr. Lara. *The nurse will call you with the appointment details. This office is located at the rear of the hospital. You will park behind the hospital in [address] and enter via [facility]. If you have any questions, call the office at [phone].) Beverly Sterling [Nurse Practitioner] - 06/10/18 1:40 pm (Please, follow up [facility] with Beverly AMEZQUITA on FridayJune 10 at 1:40 pm. *I made them aware of your appointment with neurology at 3:00 pm. The home care scheduler said this appointment should only last about 1/2 hour. *This office is located at [address] [place] [address] in [place]. If you need to change this appointment, call the office at [phone]. THIS IS A PROVIDER WITH [facility]. YOU MAY WANT TO CHECK WITH YOUR [facility] INSURANCE REGARDING COVERAGE FOR [facility] PROVIDERS. THERE MAY BE AN ADDITIONAL CHARGE, IF THE PROVIDER IS OUT OF NETWORK WITH YOUR INSURANCE. ) Diet: Carb Consistent or DM2 and Heart Healthy Addtl Provider Instructions: You were admitted for weakness on your right side and found to have suspected esophageal cancer with spread of tumors to the brain. You were started on a steroid pill called dexamethasone to reduce the swelling in the brain around these tumors. Please continue taking this pill four times a day until Dr. Gurrola tells you to stop. You will continue whole brain radiation therapy for 9 more treatments. Please follow up with Dr. Lara of Oncology, and with GI and your PCP as scheduled for you. You were started on insulin due to your high blood sugars from the steroid pill. Please check your glucose levels before each meal and at bedtime. Your PCP can help you adjust your insulin dosing as needed. Your blood pressures were low at times and your diltiazem was stopped. Your carvedilol dose was reduced to 12.5mg twice a day. Prescriptions: New pantoprazole 40 mg Tablet,Delayed Release (Dr/Ec) 40 mg PO DAILY Qty: 30 RF: 0 Lantus Solostar U-100 Insulin 100 unit/mL (3 mL) Insulin Pen 30 unit SC QAM Qty: 15 RF: 0 pen needle, diabetic [Pen Needle] 32 gauge x 5/32" needle .ROUTE .MEDSUPPLY Qty: 30 RF: 0 dexamethasone [Decadron] 4 mg tablet 4 mg PO QID Qty: 56 RF: 0 Continued atorvastatin 40 mg tablet 40 mg PO QPM RF: 0 lisinopril 20 mg tablet 20 mg PO QPM RF: 0 Januvia 50 mg Tablet 50 mg PO QAM RF: 0 Changed carvedilol 25 mg tablet 12.5 mg PO BID Qty: 0 RF: 0 Discontinued metformin 1,000 mg tablet 1,000 mg PO BIDM RF: 0 diltiazem HCl 120 mg capsule,extended release 24hr 120 mg PO QAM RF: 0 Stand-Alone Forms: [facility] Discharge Orders: Discharge Order (Routine); Ordered 05/19/18 Ordered By: Kitty Godinez Admission Data Admit Date/Time: 05/17/18 06:40 Attending Provider: Kitty Godinez Admit Provider: Leroy David Primary Care Provider: Valerie Mullins Other Providers: Leroy David ; Dave Lara V ; Radha Gray ; Julieta Eaton ; Teresita Alva ; Jc Boothe ; Brisa Aleman ; Yadira Biswas ; Lesli Velasco ; Denzel Kennedy ; Julio Blank ; Oma Castillo ; Erika Chou ; Beverly Sterling ; Racheal Vance ; Gume Finney ; Dmitriy Gurrola ; Gomez Brown Service: Telemetry Other Interventions: Discharge Summary Assessment (RN) Last Done: 05/18/18 12:11 Pending Studies at Discharge: Yes Studies:: Biopsy results from the esophagus
[2018-05-20] MEDS ORDERED: INSULIN ASPART 100 UNITS/ML 3 ML PEN SC SCH
[2018-05-20] MEDS ORDERED: PANTOprazole 40 MG TAB PO SCH (09:00)
== END 2018-05-19 18:32 | disposition home health service (06) | DRG 54 ==
LOC: ED 03:26 → 1E 06:40 → SUATTDRO 06:40 → 1E 07:02 → 2S 14:17
DX: E88.09 Other disorders of plasma-protein metabolism, not elsewhere classified; E11.51 Type 2 diabetes mellitus with diabetic peripheral angiopathy without gangrene; G93.6 Cerebral edema; N17.9 Acute kidney failure, unspecified; R40.2412 Glasgow coma scale score 13-15, at arrival to emergency department; E78.5 Hyperlipidemia, unspecified; N18.3 Chronic kidney disease, stage 3 (moderate); R29.898 Other symptoms and signs involving the musculoskeletal system; F17.220 Nicotine dependence, chewing tobacco, uncomplicated; Z83.3 Family history of diabetes mellitus; E11.22 Type 2 diabetes mellitus with diabetic chronic kidney disease; Z79.899 Other long term (current) drug therapy; Z88.0 Allergy status to penicillin; C15.5 Malignant neoplasm of lower third of esophagus; E78.00 Pure hypercholesterolemia, unspecified; R26.89 Other abnormalities of gait and mobility; R59.0 Localized enlarged lymph nodes; D63.1 Anemia in chronic kidney disease; Z82.49 Family history of ischemic heart disease and other diseases of the circulatory system; I12.9 Hypertensive chronic kidney disease with stage 1 through stage 4 chronic kidney disease, or unspecified chronic kidney disease; Z85.828 Personal history of other malignant neoplasm of skin; I25.10 Atherosclerotic heart disease of native coronary artery without angina pectoris; R29.702 NIHSS score 2; C79.31 Secondary malignant neoplasm of brain; Z95.1 Presence of aortocoronary bypass graft; R94.31 Abnormal electrocardiogram [ECG] [EKG]; C78.7 Secondary malignant neoplasm of liver and intrahepatic bile duct; Z79.84 Long term (current) use of oral hypoglycemic drugs

== ENCOUNTER 2019-03-04 13:35 | Observation (INO) ==
[2019-03-04] MEDS ORDERED: SODIUM CHLORIDE 0.9% 500 ML IV STA (14:16)
[2019-03-04 14:40] LABS: Basophils # (auto) 0.01 K/uL (0-0.2); Basophils % (auto) 0.3 %; Eosinophils # (auto) 0.02 K/uL (0-0.5); Eosinophils % (auto) 0.5 %; Hematocrit (blood only) 35.8 % (42-52); Hemoglobin 11.3 g/dL (14.0-18.0); Immature Granulocytes # (auto) 0.01 K/uL (0.00-0.02); Immature Granulocytes % (auto) 0.3 %; Lymphocytes # (auto) 1.05 K/uL (1.2-3.4); Lymphocytes % (auto) 28.5 %; Mean Corpuscular Hemoglobin 29.7 pg (25-34); Mean Corpuscular Hgb Conc 31.6 g/dL (32-36); Mean Platelet Volume 10.7 fL (7.4-10.4); Monocytes # (auto) 0.06 K/uL (0.11-0.59); Monocytes % (auto) 1.6 %; Neutrophils # (auto) 2.53 K/uL (1.4-6.5); Neutrophils % (auto) 68.8 %; Platelet Count 111 K/uL (130-400); RDW Coefficient of Variation 19.1 % (11.5-14.5); RDW Standard Deviation 64.7 fL (36.4-46.3); Red Blood Count 3.81 M/uL (4.7-6.1); White Blood Count 3.68 K/uL (4.8-10.8)
[2019-03-04 14:55] LABS: INR 1.2 (0.9-1.1); Prothrombin Time 11.9 Seconds (9.0-12.0)
[2019-03-04 14:59] LABS: Alanine Aminotransferase 34 U/L (12-78); Albumin Level 2.4 gm/dl (3.4-5.0); Aspartate Aminotransferase 59 U/L (15-37); BUN Creatinine Ratio 23.4 (10-20); Blood Urea Nitrogen 34 mg/dl (7-18); Calcium 8.2 mg/dl (8.5-10.1); Carbon Dioxide 21 mmol/L (21-32); Chloride 113 mmol/L (98-107); Est GFR (African American) 56.1; Est GFR (Non-African American) 48.4; Glucose 138 mg/dl (70-99); Lipase 177 U/L (73-393); Magnesium 1.3 mg/dl (1.8-2.4); Potassium 3.5 mmol/L (3.5-5.1); Sodium 142 mmol/L (136-145)
[2019-03-04 15:03] LABS: Albumin Globulin Ratio 0.6 (0.9-2); Alkaline Phosphatase 213 U/L (45-117); Bilirubin Direct < 0.1 mg/dl (0-0.2); Bilirubin,Total 0.5 mg/dl (0.2-1); Globulin 3.8 gm/dl (2.5-4.0); Phosphorus 3.1 mg/dl (2.5-4.9); Total Protein 6.2 gm/dl (6.4-8.2)
--- NOTE | 2019-03-04 15:13 | CT Scan Report ---
CT SCAN OF THE ABDOMEN AND PELVIS WITHOUT CONTRAST CLINICAL HISTORY: abd pain, ascites, metastatic cancer COMPARISON STUDY: 05/17/2018 TECHNIQUE: CT scan of the abdomen and pelvis was performed from the lung bases to the proximal femurs . Images are reviewed in the axial, sagittal, and coronal planes. IV contrast was not administered fo r this examination. A dose lowering technique was utilized adhering to the principles of ALARA. CT DOSE: 1142.95 mGy.cm FINDINGS: Lower chest: There are bilateral pleural effusions. There are dependent atelectatic changes. Liver: There is a 26 mm right lobe hepatic mass which appears smaller when compared the contrast-enha nced study dated 05/17/2018. The previously identified left lobe hepatic mass is difficult to visualiz e on this noncontrast study. Gallbladder: Cholelithiasis Spleen: The spleen is enlarged measuring 17 cm Pancreas: Unremarkable. Adrenal glands: Unremarkable. Kidneys: No renal, ureteral, or bladder calculi are visualized. There is a 42 mm left renal cyst. The re is a 14 mm right renal cyst. Bowel: There are no transition zones to indicate bowel obstruction. There is colonic diverticulosis. The appendix is not visualized. Peritoneum: There is a large volume of ascites. No free intraperitoneal air is visualized. There is a small umbilical hernia containing fat and fluid. Vasculature: There is an indwelling IVC filter. There is no evidence for abdominal aortic aneurysm. A theromatous changes are present within the aorta and iliac vessels. Adenopathy: There is interval decrease in the size of the previously identified enlarged precaval lym ph node. This node currently measures 36 x 18 mm. There is also interval decrease in the size of a po rta hepatis lymph node. Pelvic viscera: The bladder, and pelvic viscera are unremarkable. Skeletal structures: There is a subacute/chronic superior endplate L1 compression fracture, which was not present in April 2018. There are prominent disc osteophyte complexes at the L2-3 through L5-S1 l evels IMPRESSION: 1. Bilateral pleural effusions 2. Large volume of ascites 3. Apparent interval decrease in the size of the hepatic metastasis 4. Marked improvement in the previously identified upper abdominal lymphadenopathy 5. No evidence of bowel obstruction. No evidence of free air. ACT 112: Negative or not required by law. Electronically signed by: Franklin Barahona M.D. 03/04/2019 3:11 PM
--- NOTE | 2019-03-04 17:14 | History & Physical Report ---
Date of Service March 04, 2019 Assessment & Plan (1) Ascites: Secondary to liver mets from esophageal CA Abd/pelvis CT: IMPRESSION: 1. Bilateral pleural effusions 2. Large volume of ascites 3. Apparent interval decrease in the size of the hepatic metastasis 4. Marked improvement in the previously identified upper abdominal lymphadenopathy 5. No evidence of bowel obstruction. No evidence of free air. US guided paracentesis tomorrow morning. Patient will likely need albumin replacement (2) CHF (congestive heart failure), NYHA class II: Continue statin, ASA, Coreg, lisinopril, nitro prn (3) Cancer of esophagus: Last chemotherapy 03/[address] Dawn in [facility] [place] to brain and liver (4) CKD (chronic kidney disease) stage 3, GFR 30-59 ml/min: avoid nephrotoxins where possible Creatinine 1.45 - appears to be baseline (5) Hypertension: Continue Coreg, lisinopril, (6) Coronary artery disease: Continue, ASA, atorvastatin, lisinopril, carvedilol (7) DVT prophylaxis: SCDs Will initiate heparin subq tomorrow evening after paracentesis History of Present Illness Mr. Milner presents with complaints of abdominal distention secondary to ascites. 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 He followed by Dr. Isa Dawn for oncology at [facility]. Last chemo was Friday. Most recent records from [facility] report he is receiving oxaliplatin but he thought he might have been switched to a new agent recently. A physical therapist was visiting his home and was concerned about the amount of distention he was experiencing and recommended he report to the emergency department. He also reports edema in his lower extremities. He denies any pain, sob, cough, chest pain, n/v/d, or dysuria. Pmhx: CABG in 1991, CAD, HTN, CHF, HLD Social: 20 pyh, no alcohol, retired, lives with his Family: mother and father with heart disease Primary Care Provider: Valerie Mullins, Allergies Allergy/AdvReac Type Severity Reaction Status Date / Time Penicillins Allergy Intermediate HIVES Verified 03/04/19 14:58 Home Medications Home Medications Medication Instructions Recorded Confirmed Type atorvastatin 40 mg PO QPM 05/17/18 03/04/19 History pantoprazole 40 mg PO DAILY #30 tab 05/19/18 03/04/19 Rx pen needle, diabetic [Pen Needle] #30 ea 05/19/18 03/04/19 Rx aspirin 81 mg chewable tablet 1 tab PO DAILY tab 09/21/18 03/04/19 History multivitamin,yw-pixp-awegaldh 1 tab PO DAILY 09/21/18 03/04/19 History nitroglycerin 0.4 mg sublingual 0.4 mg SL Q5M PRN #1 tab 09/21/18 03/04/19 History tablet blood sugar diagnostic #100 ea 11/19/18 03/04/19 Rx blood-glucose meter #1 ea 11/19/18 03/04/19 Rx carvedilol 6.25 mg tablet 6.25 mg PO BID #180 tab 12/07/18 03/04/19 Rx insulin glargine 100 unit/mL (3 10 units SQ DAILY 02/22/19 03/04/19 History mL) subcutaneous pen lisinopril 20 mg tablet 20 mg PO BID tab 02/22/19 03/04/19 History mirtazapine 7.5 mg tablet 7.5 mg PO DAILY 02/22/19 03/04/19 History levothyroxine 25 mcg tablet 25 mcg PO DAILY #60 tab 02/25/19 03/04/19 Rx Past Med/Surg History Medical History Acute kidney injury Anemia Anemia Basal cell carcinoma, face (Acute) Bilateral carotid artery stenosis (Acute) Brain lesion Cancer Cancer of esophagus (Acute) Cerebrovascular accident R sided weakness more likely due to swelling from brain tumors CHF (congestive heart failure), NYHA class II (Acute) Chronic nasal congestion (Acute) Coronary artery disease Diabetes Diastolic dysfunction (Acute) Dyslipidemia Esophageal mass Heart disease HTN (hypertension) Hypercholesterolemia (Acute) Insomnia (Acute) Peripheral arterial disease (Acute) Proteinuria (Chronic) Secondary hyperparathyroidism of renal origin (Chronic) Thoracic aortic ectasia (Acute) Vitamin D deficiency (Chronic) Surgical History S/P triple vessel bypass Family History Mother Family history of cardiac disorder Father Diabetes Hypertension Other Cancer Heart disease Kidney disease Myocardial infarction Seizure Social History Preferred Language: Vietnamese Communication Ability: Effective Data Conversion Analyst Required: No Beliefs That Will Affect Care: None marital status: Current Living Situation: Spouse current occupational status: retired Other Information That Helps Us Care for You: No Feels Safe at Home: Yes Safety Concerns: Feels Safe At This Time Smoking Status: Former smoker Cigarettes Per Day: smokeless tabacco use daily ; Smoking End Date: 20 years ago ; Second Hand Exposure: No ; Hx Alcohol Use: No Hx Substance Use: No Dental Care, Regularly: Yes Physical Activity Frequency: 3-4 Times per Week Review of Systems Review of Systems: All systems reviewed & are unremarkable except as noted in HPI & below Physical Exam Physical Exam: General: no distress Eyes: normal inspection, PERLL Respiratory: chest non tender, clear to auscultation, normal breath sounds, no respiratory distress, no accessory muscle use Cardiac: regular rate and rhythm, no rub or gallop, no murmur, no edema, no jvd GI/: active bowel sounds, no abd pain or tenderness, taught and firm, abdomen very distended, umbilical hernia Extremities: normal range of motion, normal strength, non tender Neuro/Psych: alert and oriented x 3, normal mood and affect Skin: normal color, dry Results & Data Vital Signs (Past 12 Hours) Vital Signs Temp Pulse Pulse Resp BP BP Pulse Ox 03/04/19 17:01 72 17 142/85 H 03/04/19 17:00 70 22 03/04/19 16:31 71 15 03/04/19 16:30 68 17 143/80 H 03/04/19 16:01 70 18 99 03/04/19 16:00 75 17 164/101 H 99 03/04/19 15:32 71 18 143/77 H 99 03/04/19 15:31 71 16 98 03/04/19 15:30 68 17 143/77 H 97 03/04/19 15:00 68 14 03/04/19 14:30 75 17 03/04/19 14:00 71 7 L 03/04/19 13:52 74 17 03/04/19 13:39 36.3 C L 73 22 170/88 H 99 Code Status & VTE Plan Code Status full code PG Care Time/CCT Total # of Minutes Spent Total Time Spent with Patient: Total time spent is greater than 50% in coordi nation of care (as documented) at patient's floor/unit and/or counseling patient:
[2019-03-04] MEDS ORDERED: NITROGLYCERIN SL 0.4 MG/TAB TAB SL PRN (19:05)
[2019-03-04] MEDS ORDERED: PHARMACY GLYCEMIC MGMT CONSULT PRN (19:48)
[2019-03-04] MEDS ORDERED: ATORVASTATIN 40 MG TAB PO SCH (21:00)
[2019-03-04] MEDS: lisinopriL 20 MG TAB PO SCH (21:19)
[2019-03-04] MEDS: carvediloL 6.25 MG TAB PO SCH (21:19)
[2019-03-04] MEDS: INSULIN ASPART 100 UNITS/ML 3 ML PEN SC SCH ×2 (21:41→23:35)
--- NOTE | 2019-03-04 22:31 | Emergency Department Note ---
Entered by Michelle Wall acting as a scribe for History of Present Illness General Chief complaint: Abdominal Pain Stated complaint: FLUID IN ABDOMEN Time Seen by Provider: 03/04/19 14:05 History of Present Illness Provider complaint: abdominal distension Onset (ago): day(s) 10 Location: abdomen Pain Consistency: + constant Relieved By: + none Associated symptoms: + denies other symptoms (abdominal pain, difficulty moving bowels) and + other (fluid in legs, esophageal cancer, chemotherapy since October, been eating and drinking well, tired, PET scan showed tumors are shrinking); no nausea/vomiting and no shortness of breath The patient is a 68 year old male who presents to the ED with complaints of constant abdominal distension that started 10 days ago. Per , the patient has fluid in his legs as well. The patient states that nothing is helping him to decrease this fluid retention. Per , the patient was diagnosed with esophageal cancer last April and has been receiving chemotherapy since October. The patient states that he saw Dr. Jauregui on which is around the time the distension started. Per , Dr. Jauregui suggested that they may need to take the patient somewhere to get his abdomen drained. Per , the home health nurse came today and recommended the patient to go to the ED because of the worsening distension. The patient denies abdominal pain, shortness of breath, nausea, vomiting and difficulty moving bowels. The patient states that he has been eating and drinking well but he is constantly tired. Per , the patient had a PET scan yesterday which showed that his tumors are shrinking; however, they are still suggesting that the patient continues to receive chemotherapy every other week. Home Medications Home Medications Medication Instructions Recorded Confirmed Type atorvastatin 40 mg PO QPM 05/17/18 03/04/19 History pantoprazole 40 mg PO DAILY #30 tab 05/19/18 03/04/19 Rx pen needle, diabetic [Pen Needle] #30 ea 05/19/18 03/04/19 Rx aspirin 81 mg chewable tablet 1 tab PO DAILY tab 09/21/18 03/04/19 History multivitamin,ys-ajzr-zleajoxf 1 tab PO DAILY 09/21/18 03/04/19 History nitroglycerin 0.4 mg sublingual 0.4 mg SL Q5M PRN #1 tab 09/21/18 03/04/19 History tablet blood sugar diagnostic #100 ea 11/19/18 03/04/19 Rx blood-glucose meter #1 ea 11/19/18 03/04/19 Rx carvedilol 6.25 mg tablet 6.25 mg PO BID #180 tab 12/07/18 03/04/19 Rx insulin glargine 100 unit/mL (3 10 units SQ DAILY 02/22/19 03/04/19 History mL) subcutaneous pen lisinopril 20 mg tablet 20 mg PO BID tab 02/22/19 03/04/19 History mirtazapine 7.5 mg tablet 7.5 mg PO DAILY 02/22/19 03/04/19 History levothyroxine 25 mcg tablet 25 mcg PO DAILY #60 tab 02/25/19 03/04/19 Rx Allergies Allergy/AdvReac Type Severity Reaction Status Date / Time Penicillins Allergy Intermediate HIVES Verified 03/04/19 14:58 Past Med/Surg History Medical History Acute kidney injury Anemia Anemia Basal cell carcinoma, face (Acute) Bilateral carotid artery stenosis (Acute) Brain lesion Cancer Cancer of esophagus (Acute) Cerebrovascular accident R sided weakness more likely due to swelling from brain tumors CHF (congestive heart failure), NYHA class II (Acute) Chronic nasal congestion (Acute) Coronary artery disease Diabetes Diastolic dysfunction (Acute) Dyslipidemia Esophageal mass Heart disease HTN (hypertension) Hypercholesterolemia (Acute) Insomnia (Acute) Peripheral arterial disease (Acute) Proteinuria (Chronic) Secondary hyperparathyroidism of renal origin (Chronic) Thoracic aortic ectasia (Acute) Vitamin D deficiency (Chronic) Surgical History S/P triple vessel bypass Family History Mother Family history of cardiac disorder Father Diabetes Hypertension Other Cancer Heart disease Kidney disease Myocardial infarction Seizure Social History Preferred Language: Guyanese Communication Ability: Effective Virtualization Architect Required: No Beliefs That Will Affect Care: None marital status: Current Living Situation: Spouse current occupational status: retired Other Information That Helps Us Care for You: No Feels Safe at Home: Yes Safety Concerns: Feels Safe At This Time Smoking Status: Former smoker Cigarettes Per Day: smokeless tabacco use daily ; Smoking End Date: 20 years ago ; Second Hand Exposure: No ; Hx Alcohol Use: No Hx Substance Use: No Dental Care, Regularly: Yes Physical Activity Frequency: 3-4 Times per Week Review of Systems See HPI for pertinent positives & negatives. and A total of 10 systems reviewed and were otherwise negative Physical Exam Vital Signs Vital Signs - 24 hr 03/04/19 13:39 03/04/19 13:52 03/04/19 14:00 Temperature 36.3 C L Temperature Source Oral Pulse Rate 73 74 71 Pulse Rate [Finger] Pulse Rate from SpO2 Sensor Respiratory Rate 22 17 7 L Respiratory Effort / Characteristics Non-Labored Spontaneous Respiratory Depth Normal Blood Pressure 170/88 H Blood Pressure [Right Arm] Blood Pressure Mean 115 Blood Pressure Mean [Right Arm] Blood Pressure Position Sitting Pulse Oximetry 99 Oxygen Delivery Method Room Air Sepsis Recent Fever Within 48 Hours No Sepsis Action Taken by Nursing No Action Required 03/04/19 14:30 03/04/19 15:00 03/04/19 15:30 Temperature Temperature Source Pulse Rate 75 68 68 Pulse Rate [Finger] Pulse Rate from SpO2 Sensor 70 Respiratory Rate 17 14 17 Respiratory Effort / Characteristics Respiratory Depth Blood Pressure 143/77 H Blood Pressure [Right Arm] Blood Pressure Mean 99 Blood Pressure Mean [Right Arm] Blood Pressure Position Pulse Oximetry 97 Oxygen Delivery Method Sepsis Recent Fever Within 48 Hours Sepsis Action Taken by Nursing 03/04/19 15:31 03/04/19 15:32 03/04/19 16:00 Temperature Temperature Source Pulse Rate 71 75 Pulse Rate [Finger] 71 Pulse Rate from SpO2 Sensor 70 76 Respiratory Rate 16 18 17 Respiratory Effort / Characteristics Respiratory Depth Blood Pressure 164/101 H Blood Pressure [Right Arm] 143/77 H Blood Pressure Mean 125 Blood Pressure Mean [Right Arm] 99 Blood Pressure Position Pulse Oximetry 98 99 99 Oxygen Delivery Method Sepsis Recent Fever Within 48 Hours Sepsis Action Taken by Nursing 03/04/19 16:01 03/04/19 16:30 03/04/19 16:31 Temperature Temperature Source Pulse Rate 70 68 71 Pulse Rate [Finger] Pulse Rate from SpO2 Sensor 71 Respiratory Rate 18 17 15 Respiratory Effort / Characteristics Respiratory Depth Blood Pressure 143/80 H Blood Pressure [Right Arm] Blood Pressure Mean 89 Blood Pressure Mean [Right Arm] Blood Pressure Position Pulse Oximetry 99 Oxygen Delivery Method Sepsis Recent Fever Within 48 Hours Sepsis Action Taken by Nursing 03/04/19 17:00 03/04/19 17:01 Temperature Temperature Source Pulse Rate 70 72 Pulse Rate [Finger] Pulse Rate from SpO2 Sensor Respiratory Rate 22 17 Respiratory Effort / Characteristics Respiratory Depth Blood Pressure 142/85 H Blood Pressure [Right Arm] Blood Pressure Mean 88 Blood Pressure Mean [Right Arm] Blood Pressure Position Pulse Oximetry Oxygen Delivery Method Sepsis Recent Fever Within 48 Hours Sepsis Action Taken by Nursing GENERAL: Awake, alert, fatigued-appearing, in no distress HENT: Normocephalic, atraumatic. Oropharynx with dry mucous membranes and otherwise unremarkable. EYES: Normal conjunctiva. Sclera non-icteric. NECK: Supple. No nuchal rigidity. FROM. No JVD. RESPIRATORY: Clear to auscultation bilaterally. CARDIAC: Regular rate, normal rhythm. Extremities warm and well perfused. Pulses equal. ABDOMEN: Distended abdomen, soft. No tenderness to palpation. No rebound or guarding. No masses. RECTAL: Deferred. MUSCULOSKELETAL: Chest examination reveals no tenderness. The back is symmetrical on inspection without obvious abnormality. There is no CVA t enderness to palpation. No joint edema. LOWER EXTREMITIES: Calves are equal size bilaterally and non-tender. 1+bilateral lower extremity edema. No discoloration. NEURO: Normal sensorium. No sensory or motor deficits noted. SKIN: No rash or jaundice noted. Course Course 1409: Past medical records reviewed. The patient was evaluated in room B10. A complete history and physical exam was performed. 1602: I discussed the patient's case with Dr. Alpesh Carey. He states that they would be able to do a therapeutic paracentesis and diagnostics tomorrow morning. 1618: I discussed the patient's case with Dr. Costa [facility], Hospitalist. She will evaluate the patient for further management. Consultations Consultation #1: I discussed the patient's case with Dr. Alpesh Carey. He states that they would be able to do a therapeutic paracentesis and diagnostics tomorrow morning. Time: 16:02 Consultation #2: I discussed the patient's case with Dr. Costa [facility], Hospitalist. She will evaluate the patient for further management. Time: 16:18 Administered Medications Atorvastatin Calcium (Lipitor) 40 mg PO QPM ADONIS Stop: 04/03/19 20:59 Last Admin: 03/04/19 21:19 Dose: 40 mg Documented by: [id number] Carvedilol (Coreg) 6.25 mg PO BID ADONIS Stop: 04/03/19 20:59 Last Admin: 03/04/19 21:19 Dose: 6.25 mg Documented by: [id number] Insulin Aspart (Novolog Flexpen) 0 units SC ACHS ADONIS Stop: 04/03/19 20:59 Last Admin: 03/04/19 21:41 Dose: Not Given Documented by: [id number] Cosigned by: [id number] Insulin Aspart (Novolog Flexpen) 0 units SC TODAY@0000,0400 [facility] Stop: 03/05/19 04:01 Last Admin: 03/04/19 23:35 Dose: Not Given Documented by: [id number] Cosigned by: [id number] Lisinopril (Zestril) 20 mg PO BID [facility] Stop: 04/03/19 20:59 Last Admin: 03/04/19 21:19 Dose: 20 mg Documented by: [id number] Discontinued Medications Sodium Chloride (Nss) 500 mls @ 125 mls/hr IV .Q4H [facility] Stop: 03/04/19 18:15 Last Admin: 03/04/19 16:10 Dose: Not Given Documented by: [id number] Medical Decision Making Differential Diagnosis Differential diagnosis: Etiologies such as biliary colic, cholecystitis, hepatitis, pancreatitis, cardiac disease, pancreatitis, gastritis, peptic ulcer disease, appendicitis, cystitis, diverticulitis, mesenteric ischemia, inflammatory bowel disease, ileus, bowel obstruction, testicular torsion, aortic pathology, shingles, as well as others were considered. Medical Records Attestation: I reviewed the patient's medical records. Home Medications Current Medication List: was personally reviewed by me Laboratory Data Attestation: I reviewed the patient's lab results. Result diagrams: 03/04/19 14:30 03/04/19 14:30 Lab Results 03/04/19 03/04/19 03/04/19 Range/Units 14:28 14:30 14:30 WBC 3.68 L (4.8-10.8) K/uL RBC 3.81 L (4.7-6.1) M/uL Hgb 11.3 L (14.0-18.0) g/dL Hct 35.8 L (42-52) % MCV 94.0 (80-100) fL MCH 29.7 (25-34) pg MCHC 31.6 L (32-36) g/dL RDW Std Deviation 64.7 H (36.4-46.3) fL RDW Coeff of Jeannette 19.1 H (11.5-14.5) % Plt Count 111 L (130-400) K/uL MPV 10.7 H (7.4-10.4) fL Immature Gran % (Auto) 0.3 % Neut % (Auto) 68.8 % Lymph % (Auto) 28.5 % [place] % (Auto) 1.6 % Eos % (Auto) 0.5 % Baso % (Auto) 0.3 % Immature Gran # (Auto) 0.01 (0.00-0.02) K/uL Neut # (Auto) 2.53 (1.4-6.5) K/uL Lymph # (Auto) 1.05 L (1.2-3.4) K/uL [place] # (Auto) 0.06 L (0.11-0.59) K/uL Eos # (Auto) 0.02 (0-0.5) K/uL Baso # (Auto) 0.01 (0-0.2) K/uL PT 11.9 (9.0-12.0) Seconds INR 1.2 H (0.9-1.1) Sodium (136-145) mmol/L Potassium (3.5-5.1) mmol/L Chloride (98-107) mmol/L Carbon Dioxide (21-32) mmol/L Anion Gap (3-11) BUN (7-18) mg/dl Creatinine (0.6-1.4) mg/dl Est Cr Clr Drug Dosing Est GFR ( Amer) Est GFR (Non-Af Amer) BUN/Creatinine Ratio (10-20) Glucose (70-99) mg/dl Calcium (8.5-10.1) mg/dl Phosphorus (2.5-4.9) mg/dl Magnesium (1.8-2.4) mg/dl Total Bilirubin (0.2-1) mg/dl Direct Bilirubin (0-0.2) mg/dl AST (15-37) U/L ALT (12-78) U/L Alkaline Phosphatase (45-117) U/L Total Protein (6.4-8.2) gm/dl Albumin (3.4-5.0) gm/dl Globulin (2.5-4.0) gm/dl Albumin/Globulin Ratio (0.9-2) Lipase (73-393) U/L Hepatitis C Ab Screen Neg (Neg) 03/04/19 03/04/19 Range/Units 14:30 14:30 WBC (4.8-10.8) K/uL RBC (4.7-6.1) M/uL Hgb (14.0-18.0) g/dL Hct (42-52) % MCV (80-100) fL MCH (25-34) pg MCHC (32-36) g/dL RDW Std Deviation (36.4-46.3) fL RDW Coeff of Jeannette (11.5-14.5) % Plt Count (130-400) K/uL MPV (7.4-10.4) fL Immature Gran % (Auto) % Neut % (Auto) % Lymph % (Auto) % [place] % (Auto) % Eos % (Auto) % Baso % (Auto) % Immature Gran # (Auto) (0.00-0.02) K/uL Neut # (Auto) (1.4-6.5) K/uL Lymph # (Auto) (1.2-3.4) K/uL [place] # (Auto) (0.11-0.59) K/uL Eos # (Auto) (0-0.5) K/uL Baso # (Auto) (0-0.2) K/uL PT (9.0-12.0) Seconds INR (0.9-1.1) Sodium 142 (136-145) mmol/L Potassium 3.5 (3.5-5.1) mmol/L Chloride 113 H (98-107) mmol/L Carbon Dioxide 21 (21-32) mmol/L Anion Gap 8.0 (3-11) BUN 34 H (7-18) mg/dl Creatinine 1.45 H (0.6-1.4) mg/dl Est Cr Clr Drug Dosing Not Reportable Est GFR ( Amer) 56.1 Est GFR (Non-Af Amer) 48.4 BUN/Creatinine Ratio 23.4 H (10-20) Glucose 138 H (70-99) mg/dl Calcium 8.2 L (8.5-10.1) mg/dl Phosphorus 3.1 Cancelled (2.5-4.9) mg/dl Magnesium 1.3 L Cancelled (1.8-2.4) mg/dl Total Bilirubin 0.5 (0.2-1) mg/dl Direct Bilirubin < 0.1 Cancelled (0-0.2) mg/dl AST 59 H (15-37) U/L ALT 34 (12-78) U/L Alkaline Phosphatase 213 H (45-117) U/L Total Protein 6.2 L (6.4-8.2) gm/dl Albumin 2.4 L (3.4-5.0) gm/dl Globulin 3.8 (2.5-4.0) gm/dl Albumin/Globulin Ratio 0.6 L (0.9-2) Lipase 177 (73-393) U/L Hepatitis C Ab Screen (Neg) Imaging Data Radiologist's Impression: Radiology results as stated below per my review and the radiologist's interpretation: CT SCAN OF THE ABDOMEN AND PELVIS WITHOUT CONTRAST CLINICAL HISTORY: abd pain, ascites, metastatic cancer COMPARISON STUDY: 05/17/2018 TECHNIQUE: CT scan of the abdomen and pelvis was performed from the lung bases to the proximal femurs. Images are reviewed in the axial, sagittal, and coronal planes. IV contrast was not administered for this examination. A dose lowering technique was utilized adhering to the principles of ALARA. CT DOSE: 1142.95 mGy.cm FINDINGS: Lower chest: There are bilateral pleural effusions. There are dependent atelectatic changes. Liver: There is a 26 mm right lobe hepatic mass which appears smaller when compared the contrast-enhanced study dated 05/17/2018. The previously identified left lobe hepatic mass is difficult to visualize on this noncontrast study. Gallbladder: Cholelithiasis Spleen: The spleen is enlarged measuring 17 cm Pancreas: Unremarkable. Adrenal glands: Unremarkable. Kidneys: No renal, ureteral, or bladder calculi are visualized. There is a 42 mm left renal cyst. There is a 14 mm right renal cyst. Bowel: There are no transition zones to indicate bowel obstruction. There is colonic diverticulosis. The appendix is not visualized. Peritoneum: There is a large volume of ascites. No free intraperitoneal air is visualized. There is a small umbilical hernia containing fat and fluid. Vasculature: There is an indwelling IVC filter. There is no evidence for abdominal aortic aneurysm. Atheromatous changes are present within the aorta and iliac vessels. Adenopathy: There is interval decrease in the size of the previously identified enlarged precaval lymph node. This node currently measures 36 x 18 mm. There is also interval decrease in the size of a valeri hepatis lymph node. Pelvic viscera: The bladder, and pelvic viscera are unremarkable. Skeletal structures: There is a subacute/chronic superior endplate L1 compression fracture, which was not present in April 2018. There are prominent disc osteophyte complexes at the L2-3 through L5-S1 levels IMPRESSION: 1. Bilateral pleural effusions 2. Large volume of ascites 3. Apparent interval decrease in the size of the hepatic metastasis 4. Marked improvement in the previously identified upper abdominal lymphadenopathy 5. No evidence of bowel obstruction. No evidence of free air. ACT 112: Negative or not required by law. Electronically signed by: Franklin Barahona M.D. 03/04/2019 3:11 PM Blood Pressure Blood Pressure Findings: Elevated blood pressure Blood Pressure Disposition: further management by hospitalist SHEKHAR Narrative The patient is a pleasant 68-year-old gentleman with a past medical history of metastatic esophageal cancer who presents emergency department for evaluation and drainage of ascites after reporting worsening ascites over the past several weeks in setting of being seen by PCP at the end of January and again by his oncologist on Friday per HPI. Patient denies any shortness of breath, abdominal pain, nausea vomiting, changes in bowel movements. On arrival patient is no acute distress, afebrile stable vital signs. On exam patient has large volume ascites with distended abdomen but abdomen is soft and nontender. WBC 3.6, no nspecific and similar to prior range of values. H/H 11.3/35.8 and platelets 111 similar to prior values. Chemistry without acidosis. Creatinine 1.45 similar to prior range of values in setting of CKD. Magnesium 1.3. AST 59, nonspecific. Electrolytes LFTs otherwise unremarkable. Albumin is 2.4 in the setting of downtrending albumin recently. CT abdomen pelvis demonstrates large volume ascites with evidence of the patient's metastatic disease and with some reduction in liver lesions. Given that the patient has never had his ascites formally evaluated, in the setting of requiring large-volume paracentesis for removal which would require albumin and monitoring in this elderly patient, r easonable to admit the patient for further evaluation and management. Patient as are agreeable with plan. I have a very low suspicion for SBP given the patient's exam and reassuring evaluation, therefore no indication for emergent diagnostic paracentesis in the emergency department. Case discussed [place]. Pederson, [facility] [place], who evaluate the patient for admission. Case additionally discussed with Dr. Berrios, radiologist, on behalf of the admitting team and they would be able to perform the therapeutic/diagnostic paracentesis tomorrow morning Admitting team to place orders for this. Impression & Plan Metastatic disease, Ascites, Thrombocytopenia, CKD (chronic kidney disease) Discharge Plan Visit Data *Final* Discharge Date/Time: 03/04/19 17:52 Chief Complaint: Abdominal Pain Stated Complaint: FLUID IN ABDOMEN ED Provider: Chaim Bhatt Discharge Problem: Metastatic disease, Ascites, Thrombocytopenia, CKD (chronic kidney disease) Patient Disposition: Admitted As Inpatient Discharge Instructions Interventions: ED Discharge Assessment Last Done: 03/04/19 17:52 Discharge Problem: Ascites Qualifiers: Ascites type: malignant Qualified Code(s): R18.0 - Malignant ascites The scribe's documentation has been prepared under my direction and personally reviewed by me in its entirety. I confirm that the note above accurately reflects all work, treatment, procedures, and medical decision making performed by me.
[2019-03-05] MEDS: INSULIN ASPART 100 UNITS/ML 3 ML PEN SC SCH ×3 (03:57→12:46)
[2019-03-05 06:01] LABS: Hematocrit (blood only) 31.5 % (42-52); Hemoglobin 10.1 g/dL (14.0-18.0); Mean Corpuscular Hemoglobin 30.1 pg (25-34); Mean Corpuscular Hgb Conc 32.1 g/dL (32-36); Mean Corpuscular Volume 93.8 fL (80-100); RDW Coefficient of Variation 18.9 % (11.5-14.5); RDW Standard Deviation 64.4 fL (36.4-46.3); Red Blood Count 3.36 M/uL (4.7-6.1); White Blood Count 4.35 K/uL (4.8-10.8)
[2019-03-05 06:28] LABS: Mean Platelet Volume 10.5 fL (7.4-10.4); Platelet Count 98 K/uL (130-400)
[2019-03-05 06:30] LABS: Basophils # (auto) 0.02 K/uL (0-0.2); Basophils % (auto) 0.5 %; Eosinophils # (auto) 0.05 K/uL (0-0.5); Eosinophils % (auto) 1.1 %; Giant Platelets 1+; Immature Granulocytes # (auto) 0.01 K/uL (0.00-0.02); Immature Granulocytes % (auto) 0.2 %; Lymphocytes % (auto) 29.9 %; Monocytes # (auto) 0.07 K/uL (0.11-0.59); Monocytes % (auto) 1.6 %; Neutrophils % (auto) 66.7 %; Platelet Estimate Decreased (Normal)
[2019-03-05] MEDS ORDERED: LEVOTHYROXINE SODIUM 25 MCG TABLET PO SCH (06:30)
[2019-03-05 06:39] LABS: BUN Creatinine Ratio 25.2 (10-20); Calcium 7.6 mg/dl (8.5-10.1); Creatinine Clr Calc Pharmacy 57.3 ml/min; Est GFR (African American) 59.6; Est GFR (Non-African American) 51.4; Potassium 3.7 mmol/L (3.5-5.1)
[2019-03-05 06:42] LABS: Albumin Globulin Ratio 0.6 (0.9-2); Bilirubin,Total 0.5 mg/dl (0.2-1); Globulin 3.5 gm/dl (2.5-4.0); Total Protein 5.5 gm/dl (6.4-8.2)
[2019-03-05] MEDS: lisinopriL 20 MG TAB PO SCH (08:07)
[2019-03-05] MEDS: carvediloL 6.25 MG TAB PO SCH (08:07)
[2019-03-05] MEDS ORDERED: PANTOprazole 40 MG TAB PO SCH (09:00)
[2019-03-05] MEDS ORDERED: ASPIRIN 81 MG ECTAB PO SCH (09:00)
[2019-03-05] MEDS ORDERED: INSULIN GLARGINE SOLOSTAR 100 UNITS/ML 3 ML PEN SQ SCH (09:00)
[2019-03-05] MEDS ORDERED: MULTIVITAMIN TAB PO SCH (09:00)
[2019-03-05] MEDS ORDERED: MIRTAZAPINE TAB 15 MG TAB PO SCH (09:00)
--- NOTE | 2019-03-05 11:54 | Ultrasound Report ---
US paracentesis abd w/image CLINICAL HISTORY: ascites ascites COMPARISON STUDY: No previous studies for comparison. PROCEDURE: The risks, benefits, and alternatives to the procedure were discussed with the patient inc luding the risk of bleeding, infection and injury to adjacent structures. The patient agreed to the procedure and informed written consent was obtained. The procedure was performed by Dr. René lincoln a time out. Following real-time ultrasound localization, the skin was prepped and draped. Joo lincoln local anesthesia with Xylocaine, the sheath paracentesis needle was inserted and approximately 3 liters of straw-colored fluid was removed by vacuum suction. The patient tolerated the procedure well and no immediate complications were evident. IMPRESSION: Ultrasound-guided paracentesis with removal of 3 liters of ascites. No complications at the time of the procedure. ACT 112: Negative or not required by law. The above report was generated using voice recognition software. It may contain grammatical, syntax or spelling errors. Electronically signed by: Jalen Merritt M.D. 03/05/2019 11:53 AM
[2019-03-05 12:38] LABS: Albumin Peritoneal Fluid < 0.6 g/dl; Glucose Peritoneal Fluid 113 mg/dl
[2019-03-05 12:43] LABS: LDH Peritoneal Fluid 90 U/L; Total Protein Peritoneal Fluid 1.2 g/dl
[2019-03-05 13:40] LABS: Appearance Peritoneal Fluid HAZY; Basophils, Fluid 0 %; Color Peritoneal Fluid PALE YELLOW; Eosinophils, Fluid 0 %; Lymphocytes, Fluid 62 %; Mono,Macrophage,Mesothelial 10 %; Neutrophils, Fluid 28 %; RBC Peritoneal Fluid (A) < 3000 /uL; WBC Peritoneal Fluid (A) 238 /ul (0-300)
--- NOTE | 2019-03-05 18:02 | Discharge Summary ---
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 Discharge Exam Constitutional WD/WN, vitals as above Eyes EOM intact bilaterally; no conjunctival abnormality ENMT external ear and nose normal, oropharynx normal Neck trachea midline, no thyromegaly normal visual inspection Respiratory normal respiratory effort, lungs clear to auscultation no respiratory distress Cardiovascular RRR, no murmur, no edema Gastrointestinal (Abdomen) Inspection/Auscultation: abdomen normal to inspection; abdomen not distended Musculoskeletal no cyanosis or clubbing, extremities motor strength 5/5 Skin no rashes, warm and dry Neurologic moves all extremities and awake Psychiatric Orientation: alert, oriented to person and cooperative Discharge Data Allergies Allergy/AdvReac Type Severity Reaction Status Date / Time Penicillins Allergy Intermediate HIVES Verified 03/04/19 14:58 Consultations 03/04/19 16:20 ED Decision to Admit Stat Ordered Studies 03/04/19 14:14 CT abd pelvis wo con Stat 03/05/19 07:00 US paracentesis abd w/image Routine Hospital Course (1) Ascites: Secondary to liver mets from esophageal CA. - 3L removed on paracentesis. Blood pressure was fine and patient wanted to go home. No need for albumin. - I did warn him this would likely recur with his cancer. He is definitely under the impression that "only a few spots" of his cancer are left. I told him he had fairly advanced cancer, but he did not want to pursue deeper discussion of his cancer care. He wishes to remain full code, saying "Keep me going as long as possible." He will follow up with [facility] and I encouraged him in person and in writing to do so soon. (2) CHF (congestive heart failure), NYHA class II: Continue statin, ASA, Coreg, lisinopril, nitro prn (3) Cancer of esophagus: Last chemotherapy 03/[address] [place] [facility] to brain and liver (4) CKD (chronic kidney disease) stage 3, GFR 30-59 ml/min: avoid nephrotoxins where possible Creatinine 1.45 - appears to be baseline (5) Hypertension: Continue Coreg, lisinopril, (6) Coronary artery disease: Continue, ASA, atorvastatin, lisinopril, carvedilol (7) DVT prophylaxis: SCDs Will initiate heparin subq tomorrow evening after paracentesis Total Time Total Time Spent Total Time Spent (In Minutes): 35 Discharge Plan Discharge Items Patient Disposition: Home - Self-Care Reason For Visit: ASCITES Discharge Diagnosis: Ascites from metastatic cancer Activity: Resume your previous activity Non-emergency contact: Primary Care Provider and Oncologist Call non-emergency contact if: your symptoms worsen Follow-up/Referrals: Valerie Mullins DO [Primary Care Provider] - Diet: Heart Healthy Addtl Attending Provider Instructions: You were admitted for a paracentesis (draining fluid from your belly). It accumulated due to your cancer in your liver. It may return. You will need to discuss this with your oncologists at [place]. Please call them on Friday and arrange for a follow up visit with them. Please return to the hospital with further abdominal swelling or other issues. Pending Studies at Discharge: No Stand-Alone Forms: Call Back Authorization, [facility], Smoking Cessation Medications and DC Order Prescriptions: Continued (DME) OneTouch Verio strip See Dose Instructions .ROUTE .MEDSUPPLY Qty: 100 RF: 5 (DME) blood-glucose meter [OneTouch Verio IQ Meter] [facility] [place] See Dose Instructions .ROUTE .MEDSUPPLY Qty: 1 RF: 0 carvedilol 6.25 mg tablet 6.25 mg PO BID Qty: 180 RF: 3 levothyroxine 25 mcg tablet 25 mcg PO DAILY Qty: 60 RF: 0 aspirin 81 mg tablet,chewable 1 tab PO DAILY RF: 0 Complete Multivitamin tablet 1 tab PO DAILY RF: 0 lisinopril 20 mg tablet 20 mg PO BID RF: 0 Basaglar KwikPen U-100 Insulin 100 unit/mL (3 mL) insulin pen 10 units SQ DAILY RF: 0 mirtazapine 7.5 mg tablet 7.5 mg PO DAILY RF: 0 nitroglycerin 0.4 mg tablet, sublingual 0.4 mg SL Q5M PRN (Reason: chest pain) Qty: 1 RF: 0 atorvastatin 40 mg tablet 40 mg PO QPM RF: 0 pantoprazole 40 mg Tablet,Delayed Release (Dr/Ec) 40 mg PO DAILY Qty: 30 RF: 0 (DME) pen needle, diabetic [Pen Needle] 32 gauge x 5/32" needle See Dose Instructions .ROUTE .MEDSUPPLY Qty: 30 RF: 0 Discharge Orders: Discharge Order (Routine); Ordered 03/05/19 Ordered By: Alexis Caba Admission Data Admit Date/Time: 03/04/19 17:30 Attending Provider: Alexis Caba Admit Provider: Alexis Caba Primary Care Provider: Valerie Mullins Other Providers: Osmar Pederson Other Interventions: Discharge Summary Assessment (RN) Last Done: 03/05/19 13:07 DC Date/Time DO NOT enter until pt leaves facility: 03/05/19 14:24
[2019-03-05] MEDS ORDERED: HEPARIN SOD 5,000 UNIT/0.5 ML VIAL SQ SCH (21:00)
== END 2019-03-05 14:24 | disposition home or self-care (01) ==
LOC: ED 13:35 → 4W 17:30 → INTOOBSV 17:30 → 4W 17:52

== ENCOUNTER 2019-05-05 09:20 | Inpatient (IN) ==
[2019-05-05 09:44] LABS: Hematocrit (blood only) 22.5 % (42-52); Hemoglobin 7.3 g/dL (14.0-18.0); Mean Corpuscular Hemoglobin 29.4 pg (25-34); Mean Corpuscular Hgb Conc 32.4 g/dL (32-36); Mean Corpuscular Volume 90.7 fL (80-100); RDW Coefficient of Variation 18.2 % (11.5-14.5); RDW Standard Deviation 59.4 fL (36.4-46.3); Red Blood Count 2.48 M/uL (4.7-6.1); White Blood Count 3.69 K/uL (4.8-10.8)
[2019-05-05] MEDS ORDERED: SODIUM CHLORIDE 0.9% 1000ML 1,000 ML IV SCH ×2 (09:45→13:06)
[2019-05-05] MEDS ORDERED: NOREPINEPHRINE BITARTRATE 1 MG/ML 4 ML VIAL IV ONE (09:47)
[2019-05-05] MEDS ORDERED: STAT IV Infusion **Titration per Protocol STA ×2 (09:51→13:50)
[2019-05-05 09:54] LABS: INR 1.5 (0.9-1.1); Prothrombin Time 15.6 Seconds (9.0-12.0)
[2019-05-05] MEDS: ALBUMIN 25% 50 ML IV SCH ×8 (09:55→13:28)
[2019-05-05 10:02] LABS: Alanine Aminotransferase 18 U/L (12-78); Albumin Level 1.4 gm/dl (3.4-5.0); Aspartate Aminotransferase 30 U/L (15-37); BUN Creatinine Ratio 32.4 (10-20); Blood Urea Nitrogen 137 mg/dl (7-18); Calcium 8.1 mg/dl (8.5-10.1); Carbon Dioxide 10 mmol/L (21-32); Chloride 114 mmol/L (98-107); Creatinine Clr Calc Pharmacy 16.2 ml/min; Est GFR (African American) 15.4; Est GFR (Non-African American) 13.3; Glucose 93 mg/dl (70-99); Magnesium 1.3 mg/dl (1.8-2.4); Potassium 4.2 mmol/L (3.5-5.1); Sodium 138 mmol/L (136-145)
[2019-05-05] MEDS: NOREPINEPHRINE BIT INJ 8 MG in DEXTROSE 5% 500 ML IV SCH (10:06)
--- NOTE | 2019-05-05 10:10 | XRay Report ---
SINGLE VIEW CHEST CLINICAL HISTORY: Generalized weakness. FINDINGS: An AP, portable, upright chest radiograph is compared to study dated 05/13/2018 and correlat ed with chest CT dated 05/17/2018. The examination is degraded by portable technique and patient rotat ion. A right internal jugular central venous infusion port is new from previous. The the patient is s tatus post midline sternotomy. The heart is enlarged noting atherosclerotic calcification of the thor acic aorta. The pulmonary vasculature is noncongested. Chronic interstitial thickening is similar to previous. Scarring/atelectasis is noted at the lung bases. No airspace consolidation or large pleural effusion is identified. No pneumothorax is seen. The skeletal structures are osteopenic. The bony th orax is grossly intact. IMPRESSION: Cardiomegaly with no acute cardiopulmonary abnormality. ACT 112: Negative or not required by law. Electronically signed by: Sreedhar Cao M.D. 05/05/2019 10:08 AM
[2019-05-05 10:12] LABS: Albumin Globulin Ratio 0.3 (0.9-2); Alkaline Phosphatase 156 U/L (45-117); Bilirubin,Total 0.5 mg/dl (0.2-1); Globulin 4.7 gm/dl (2.5-4.0); Total Protein 6.1 gm/dl (6.4-8.2); Troponin I < 0.015 ng/ml (0-0.045)
[2019-05-05 10:19] LABS: Platelet Count 67 K/uL (130-400)
[2019-05-05 10:20] LABS: Eosinophils # (auto) 0.02 K/uL (0-0.5); Eosinophils % (auto) 0.5 %; Immature Granulocytes # (auto) 0.01 K/uL (0.00-0.02); Immature Granulocytes % (auto) 0.3 %; Lymphocytes # (auto) 0.91 K/uL (1.2-3.4); Lymphocytes % (auto) 24.7 %; Monocytes # (auto) 0.19 K/uL (0.11-0.59); Monocytes % (auto) 5.1 %; Neutrophils # (auto) 2.56 K/uL (1.4-6.5); Neutrophils % (auto) 69.4 %
[2019-05-05 10:24] LABS: Base Excess VBG -23.2 mEq/L; HCO3 VBG 6 mmol/L; PCO2 VBG 23 mmHg (38-50); PO2 VBG 54 mmHg; pH VBG 7.02 (7.36-7.41)
[2019-05-05 10:25] LABS: T4 Free Thyroxine 1.16 ng/dl (0.8-1.6)
--- NOTE | 2019-05-05 10:32 | CT Scan Report ---
CT head/brain wo con CLINICAL HISTORY: Acute change in mental status. COMPARISON STUDY: MRI the brain dated 05/17/2018, head CT dated 05/17/2018 TECHNIQUE: Axial CT of the brain is performed from the vertex to the skull base. IV contrast was not administered for this examination. A dose lowering technique was utilized adhering to the principles of ALARA. CT DOSE: FINDINGS: There has been resolution of the previous described areas of vasogenic edema. No intra or extra-axial masses are visualized on this noncontrast study. There is no CT evidence of acute cortical infarctio n. There is no midline shift. There is no acute hemorrhage. There are patchy white matter hypodensities likely on a small vessel basis. There is no evidence of pathologic ventricular dilatation. There is extensive left mastoid effusion and mild right mastoid effusion. Given the prior multiple enhancing lesions, if further evaluation is desired, an MRI would be conside red the test of choice. IMPRESSION: 1. Interval development of bilateral mastoid effusions, more severe in the left 2. The previously identified areas of vasogenic edema are no longer visualized. No mass lesions are i dentified on this noncontrast study. 3. No evidence of acute hemorrhage ACT 112: Negative or not required by law. Electronically signed by: Franklin Barahona M.D. 05/05/2019 10:30 AM
[2019-05-05] MEDS ORDERED: SODIUM CHLORIDE 0.9% 1000ML 1,000 ML IV ONE (10:49)
[2019-05-05] MEDS ORDERED: SODIUM CHLORIDE 0.9% 250 ML IV PRN ×2 (10:49→20:11)
[2019-05-05] MEDS ORDERED: CEFEPIME 2,000 MG/20 ML VIAL IV STA (10:54)
--- NOTE | 2019-05-05 11:05 | CT Scan Report ---
CT SCAN OF THE ABDOMEN AND PELVIS WITHOUT IV CONTRAST CLINICAL HISTORY: Hypotension. Change in mental status. Metastatic disease. COMPARISON STUDY: Abdominal CT dated 03/04/2019 and 05/17/2018. TECHNIQUE: CT scan of the abdomen and pelvis is performed from the lung bases to the proximal femora. Images are reviewed in the axial, sagittal, and coronal planes. IV contrast was not administered for this examination as per the referring clinician. Note that the examination is suboptimal without ora l and IV contrast. The examination is also degraded by motion artifact, and by streak artifact from t he arms which could not be elevated above the abdomen. A dose lowering technique was utilized adherin g to the principles of ALARA. CT DOSE: 2209.76 mGy.cm FINDINGS: Lung bases: The patient is status post midline sternotomy. The heart is enlarged and without pericard ial effusion. The coronary arteries are densely calcified. There is diminished attenuation of the car diac blood pool as compared to the myocardium suggesting anemia. There are trace pleural effusions wi th dependent atelectasis and interlobular septal thickening is noted at the lung bases. There is a 2. 5 cm cavitary nodule in the right lower lobe seen image #10 and a 1.8 cm cavitary nodule in the right lower lobe seen on image #12. Additional smaller nodules are present at both lung bases in the lingu la on image #1, the right middle lobe on images #4 and #9, and in the right lower lobe in image #9. T hese are new from 03/04/2019. Mild gynecomastia is noted. Liver: Evaluation of the liver is degraded by streak artifact. The unenhanced liver is liver is cirrh otic in morphology and heterogeneous in attenuation. There is nodularity of the hepatic surface conto ur as well as hypertrophy of the left lobe and caudate. There is no intrahepatic biliary ductal dilat ation. A 2.1 cm right lobe metastasis seen on image #96 is unchanged. No additional hepatic lesions a re clearly seen. This is not well assessed due to significant streak artifact and lack of IV contrast . Gallbladder: There are calcified gallstones. The gallbladder is otherwise normal as imaged. Spleen: The spleen is enlarged, measuring 16.8 cm in length. Pancreas: The unenhanced pancreas is mildly atrophic and grossly unremarkable. Adrenal glands: Unremarkable. Kidneys: The unenhanced kidneys demonstrate cortical atrophy and are without hydronephrosis. There ar e no renal calculi identified. A 4.5 cm complex cyst is again seen arising exophytically from the lef t kidney. Abdominal vasculature: There is advanced atherosclerotic calcification mild ectasia of the abdominal aorta. An infrarenal IVC filter is in place. Bowel: There is no bowel obstruction. There are scattered colonic diverticula without CT evidence of acute diverticulitis. Question underdistention versus wall thickening involving the left colon. The a ppendix is not visualized. Peritoneum: There is no intraperitoneal free air. There is a large volume of abdominal ascites. There is a large inguinal hernia which contains ascitic fluid. Lymphadenopathy: Upper abdominal lymphadenopathy is likely unchanged from 03/04/2019 but has significan tly decreased from 05/17/2018. A node in the valeri hepatis on image #155 measures approximately 3 x 5 cm. Pelvic viscera: The bladder is decompressed and not well evaluated. The prostate gland is mildly enla rged and heterogeneous. Skeletal structures: The skeletal structures are osteopenic. Moderate lumbosacral spondylosis is obse rved. There is a mild chronic superior endplate compression fracture of L1. No lytic or blastic lesio ns are seen. There are healed bilateral rib fractures. Soft tissues: There is mild body wall edema. IMPRESSION: 1. Suboptimal examination without oral and IV contrast. The examination is also degraded by streak an d motion artifact. 2. The liver is cirrhotic in morphology and heterogeneous in attenuation. 3. Splenomegaly and a large volume of abdominal ascites indicate portal hypertension. 4. A right lobe hepatic metastasis and metastatic adenopathy in the upper abdomen is grossly unchange d from 03/04/2019 but decreased from 05/17/2018. 5. There are numerous pulmonary nodules present at both lung bases which are new from 03/04/2019. The l argest 2 nodules demonstrate foci of central cavitation. Top differential considerations include pulm onary metastatic disease or possibly cavitary pneumonia/septic emboli. Clinical correlation will be e ssential. 6. Cardiomegaly with evidence of anemia. 7. Mild intralobular septal thickening is seen at the lung bases and and could represent acute and/or chronic congestive change. Clinical correlation will be required. 8. Trace pleural effusions. 9. Underdistention versus wall thickening is suggested in the left colon. Clinical correlation will b e required. 9. Cholelithiasis. 10. Additional findings as above. ACT 112: Negative or not required by law. Electronically signed by: Sreedhar Cao M.D. 05/05/2019 11:03 AM
[2019-05-05 11:23] LABS: Appearance Urine Turbid (Clear); Bacteria Urine Automated Negative (Negative); Blood Urine Negative (Negative); Color Urine Dark Yellow; Epithelial Cell Urine Auto >30 /lpf (0-5); Glucose Urine UA Negative (Negative); Ketones Urine Trace (Negative); Leukocyte Esterase Urine 1+ (Negative); Nitrite Urine Negative (Negative); Protein Urine 2+ (Negative); Specific Gravity Urine 1.027 (1.000-1.030); Urobilinogen Urine Negative (Negative); WBC Urine Automated >30 /hpf (0-5)
[2019-05-05 11:26] LABS: Bilirubin Urine Negative (Negative); Ictotest Urine Negative (Negative)
[2019-05-05 11:35] LABS: Cast Urine Automated >30 /lpf (0-5)
--- NOTE | 2019-05-05 12:03 | History & Physical Report ---
Date of Service May 05, 2019 Assessment & Plan (1) AMS (altered mental status): Likely related to anemia and dehydration in the setting of chemo Improving s/p IVF and improved BP in the ED (started improving prior to starting transfusion per family) CT head: neg for acute CXR neg for acute Concern for mets vs PNA on CTAP, started on cefepime in ED, will defer abx to ICU team UA and blood cx pending (2) Ascites: Hx of scheduled paracentesis and was due for this today at [facility] Hold on this for now given BP, but will likely need addressed prior to d/c Ascites is related to cirrhosis resulting from liver mets (3) Hypotension: Levophed started in the ED, continue Holding HTN meds (did not take this AM) Trop neg, serials pending ECHO done as outpt [address] Lutz per family (4) Renal failure: In the setting of dehydration Baseline cr 1.45 Monitor with gentle IVF (5) Anemia: Chemo reaction vs acute blood loss Hemoccult pending Hb 10.1 02/2019 (6) Hypomagnesemia: Replace and monitor (7) Abnormal CT scan, chest: New pulmonary nodules noted Mets vs cavitary PNA/septic emboli Cefepime starting in the ED, will defer further abx to ICU team Will likely need a dedicated CT chest once improving (8) Protein malnutrition: Albumin x2 in the ED Nutrition eval Monitor (9) Metastatic cancer: Esophageal ca with mets to brain, liver ?? mets to lungs on CTAP [place] [facility] [place] Last chemo was 04/26 with plans for next and final chemo on 05/10 s/p radiation to brain (10) CHF (congestive heart failure), NYHA class II: No current diuretics, monitor for fluid overload Follows with Dr. Lutz, ECHO done in office last month (11) CKD (chronic kidney disease) stage 3, GFR 30-59 ml/min: Monitor Baseline cr 1.[address] Ryan if needed (12) Coronary artery disease: CABG in 1990 Holding aspirin given anemia (13) Esophageal cancer, stage IV: With mets As noted above Code status is full per family Noted on last admission as same Per "we need to talk about that" but she does not feel he would want prolonged life support (14) Hyperlipidemia LDL goal <70: holding statin (15) Diabetes mellitus: SSI PRN A1c pending Holding home insulin (16) Hypertension: holding HTN meds due to hypoTN (17) Hypothyroid: continue home meds (18) DVT prophylaxis: Heparin for DVT proph Hold if + hemoccult History of Present Illness Primary Care Provider: Valerie Mullins, DO 68 y/o M who was brought to the ED via ambulance for concerns over worsening AMS. states that pt has been making confusing statements the last few days. She states she thought this might be related to his ongoing chemo as she had been told that chemo can cause some mild confusion. His last tx was 04/26 with plans for next (and last) tx on 05/10. states that this has worsened yesterday to where pt was not talking at all and appeared to not hear her speak with him. She states she thought he was maybe upset with her and just ignoring her, but then she asked him something directly behind him today and he did not appear to hear her at all. She was trying to help him ambulate to the bathroom with his walker and she states that he appeared very unsteady on his feet, which is new today. It was then that she realized he could not hear her and call for an ambulance. states that pt's PO intake has been low the last few weeks. He has tolerated what he does eat, but it is minimal. She does manage to get him to take a Boost daily, but he would not take that yesterday. She states that today he seemed to be breathing into his abd more. Pt has scheduled paracentesis. He was on a Qweek schedule for this, but was doing better last week, so this was not done. His next paracentesis was supposed to be today at [facility]. states that abd is more distended than usual. denies noting or pt c/o fever, chest pain, abd pain, n/v/c/d, LE pain or swelling. states that pt's color is already improved and his interactions are more to his usual. He is answering questions and talking with them now. She feels he looks better, but not his baseline. Pt did not get his AM meds today due to above, but has been taking them otherwise. Allergies Allergy/AdvReac Type Severity Reaction Status Date / Time Penicillins Allergy Intermediate HIVES Verified 04/22/19 10:28 Home Medications Home Medications Medication Instructions Recorded Confirmed Type atorvastatin 40 mg PO QPM 05/17/18 05/05/19 History pen needle, diabetic [Pen Needle] #30 ea 05/19/18 04/22/19 Rx aspirin 81 mg chewable tablet 1 tab PO PM tab 09/21/18 05/05/19 History multivitamin,um-zugz-cvcejjuh 1 tab PO QAM 09/21/18 05/05/19 History nitroglycerin 0.4 mg sublingual 0.4 mg SL Q5M PRN #1 tab 09/21/18 05/05/19 History tablet blood sugar diagnostic #100 ea 11/19/18 04/22/19 Rx blood-glucose meter #1 ea 11/19/18 04/22/19 Rx carvedilol 6.25 mg tablet 6.25 mg PO BID #180 tab 12/07/18 05/05/19 Rx mirtazapine 7.5 mg tablet 7.5 mg PO PM 02/22/19 05/05/19 History loperamide 2 mg tablet 2 mg PO Q4H PRN #14 tab 03/08/19 05/05/19 Rx insulin glargine 100 unit/mL (3 10 units SQ DAILY #15 ml 03/15/19 05/05/19 Rx mL) subcutaneous pen Wheelchair (Manual or Powered) #1 ea 03/25/19 04/22/19 Rx levothyroxine 50 mcg PO QAM 04/22/19 05/05/19 History lisinopril 20 mg tablet 10 mg PO BID tab 05/04/19 05/05/19 History pantoprazole 40 mg PO QAM 05/05/19 05/05/19 History psyllium husk [Metamucil] 1.04 g PO QAM 05/05/19 05/05/19 History Past Med/Surg History Medical History Acute kidney injury Anemia Anemia Basal cell carcinoma, face (Acute) Bilateral carotid artery stenosis (Acute) Brain lesion Cancer Cerebrovascular accident R sided weakness more likely due to swelling from brain tumors CHF (congestive heart failure), NYHA class II (Acute) Chronic nasal congestion (Acute) Coronary artery disease Diabetes Diastolic dysfunction (Acute) Dyslipidemia Heart disease HTN (hypertension) Insomnia (Acute) Peripheral arterial disease (Acute) Proteinuria (Chronic) Secondary hyperparathyroidism of renal origin (Chronic) Thoracic aortic ectasia (Acute) Vitamin D deficiency (Chronic) Surgical History S/P triple vessel bypass Family History Mother Family history of cardiac disorder Father Diabetes Hypertension Other Cancer Heart disease Kidney disease Myocardial infarction Seizure Denies family history of Colon cancer Ovarian cancer Prostate cancer Breast cancer Social History Preferred Language: Swedish Communication Ability: Effective Communication Ability Comment: altered mental status Fire Prevention Captain Required: No Beliefs That Will Affect Care: None marital status: Current Living Situation: Spouse current occupational status: retired Other Information That Helps Us Care for You: No Feels Safe at Home: Yes Safety Concerns: Feels Safe At This Time Smoking Status: Former smoker Cigarettes Per Day: smokeless tabacco use daily ; Second Hand Exposure: No ; Hx Alcohol Use: No Hx Substance Use: No Dental Care, Regularly: Yes Physical Activity Frequency: 3-4 Times per Week Review of Systems Review of Systems: Pertinent positives and negatives reviewed in HPI--all others negative Physical Exam Constitutional: WD/WN, vitals as above Eyes: normal visual leon by confrontation and + anicteric sclerae Neck: normal visual inspection and trachea midline Respiratory: Auscultation: no crackles and no wheezes Breathing into abd, but not labored Cardiovascular: Rate/Rhythm: regular rhythm and + bradycardic (borderline) Gastrointestinal (Abdomen): Inspection/Auscultation: + abdomen distended Percussion/Palpation: abdomen soft; abdomen nontender Musculoskeletal: Head/Neck/Chest: normocephalic and head atraumatic negative for edema, peripheral pulses intact Skin: + turgor decreased and + pallor Neurologic: awake; not confused Speech / Cognition: normal speech Psychiatric: Orientation: oriented to person and cooperative Speech: normal rate/rhythm/volume of speech Results & Data Vital Signs (Past 12 Hours) Vital Signs Temp Pulse Pulse Resp BP BP Pulse Ox 05/05/19 11:40 60 16 100 05/05/19 11:35 62 15 73/44 L 100 05/05/19 11:31 31.1 C L 64 20 96/47 L 100 03/11/20 11:30 63 19 100 05/05/19 11:20 63 11 L 100 05/05/19 11:16 63 16 119/56 L 100 05/05/19 11:15 100 05/05/19 11:10 62 14 93/65 L 100 05/05/19 11:05 59 L 11 L 103/54 L 100 05/05/19 11:00 58 L 12 91/53 L 05/05/19 10:58 57 L 18 97/55 L 05/05/19 10:51 131/80 05/05/19 10:50 59 L 20 05/05/19 10:46 59 L 12 101/70 05/05/19 10:41 59 L 14 63/40 L 05/05/19 10:40 62 17 05/05/19 10:35 59 L 14 81/49 L 05/05/19 10:32 58 L 16 88/50 L 05/05/19 10:30 59 L 14 88/50 L 05/05/19 10:10 57 L 18 67/36 L 05/05/19 10:06 58 L 13 81/31 L 05/05/19 10:04 57 L 12 71/39 L 98 05/05/19 10:02 54 L 12 100 05/05/19 10:01 57 L 13 71/39 L 100 05/05/19 09:59 57 L 11 L 80/45 L 100 05/05/19 09:52 54 L 54 L 11 L 85/40 L 99 05/05/19 09:51 58 L 14 85/40 L 100 05/05/19 09:49 58 L 10 L 83/49 L 100 05/05/19 09:41 58 L 21 05/05/19 09:39 79 14 65/51 L 90 05/05/19 09:36 106 H 22 88/44 L 05/05/19 09:33 23 05/05/19 09:26 20 88/51 L Diagnostic Findings CXR: neg for acute CT head: neg for acute CTAP: 1. Suboptimal examination without oral and IV contrast. The examination is also degraded by streak and motion artifact. 2. The liver is cirrhotic in morphology and heterogeneous in attenuation. 3. Splenomegaly and a large volume of abdominal ascites indicate portal hypertension. 4. A right lobe hepatic metastasis and metastatic adenopathy in the upper abdomen is grossly unchanged from 03/04/2019 but decreased from 05/17/2018. 5. There are numerous pulmonary nodules present at both lung bases which are new from 03/04/2019. The largest 2 nodules demonstrate foci of central cavitation. Top differential considerations include pulmonary metastatic disease or possibly cavitary pneumonia/septic emboli. Clinical correlation will be essential. 6. Cardiomegaly with evidence of anemia. 7. Mild intralobular septal thickening is seen at the lung bases and and could represent acute and/or chronic congestive change. Clinical correlation will be required. 8. Trace pleural effusions. 9. Underdistention versus wall thickening is suggested in the left colon. Clinical correlation will be required. 9. Cholelithiasis. 10. Additional findings as above. ECG Findings: + PVC Code Status & VTE Plan Code Status Full code, although states that she does not think pt would want prolonged mechanical life support, feeding tubes, etc. "We should talk about that." PG Care Time/CCT Total # of Minutes Spent Total Time Spent with Patient: Total time spent is greater than 50% in coordination of care (as documented) at patient's floor/unit and/or counseling patient: Coding Level of Care Code 62756 Initial Inpt Care Lvl 3 Diagnoses AMS (altered mental status) R41.82 Altered mental status type: unspecified Ascites R18.8 Hypotension I95.9 Hypotension type: unspecified hypotension type Renal failure N19 Renal failure chronicity: unspecified chronicity Anemia D64.[address] scan, chest R93.89 Protein malnutrition E46 Metastatic cancer C79.9 CHF (congestive heart failure), NYHA class II I50.9 CKD (chronic kidney disease) stage 3, GFR 30-59 ml/min N18.3 Coronary artery disease I25.10 Esophageal cancer, stage IV C15.9 Hyperlipidemia LDL goal <70 E78.5 Diabetes mellitus E11.9 Hypertension I10 Hypothyroid E03.9 DVT prophylaxis Z29.9 (1) AMS (altered mental status) Altered mental status type: unspecified Qualified Code(s): R41.82 - Altered mental status, unspecified (2) Renal failure Renal failure chronicity: unspecified chronicity Qualified Code(s): N19 - Unspecified kidney failure (3) Hypotension Hypotension type: unspecified hypotension type Qualified Code(s): I95.9 - Hypotension, unspecified
[2019-05-05] MEDS ORDERED: GLUCOSE 40% GEL 15 GM TUBE PO PRN (13:06)
[2019-05-05] MEDS ORDERED: GLUCOSE 10 TABS/TUBE PO PRN (13:06)
[2019-05-05] MEDS ORDERED: ICU PROTOCOL FOR HYPERGLYCEMIA PRN (13:06)
[2019-05-05] MEDS ORDERED: CARBOHYDRATES FOR HYPOGLYCEMIA PO PRN (13:06)
[2019-05-05] MEDS ORDERED: DEXTROSE 50% 50 ML SYRINGE IV PRN (13:06)
[2019-05-05] MEDS ORDERED: GLUCAGON FOR INJ 1 MG VIAL SQ PRN (13:06)
[2019-05-05] MEDS ORDERED: VANCOMYCIN CONSULT ACTIVE PRN (13:29)
[2019-05-05] MEDS: MAGNESIUM SULFATE / D5W 1 GM/100 ML BAG IV SCH ×2 (13:29→14:29)
[2019-05-05] MEDS ORDERED: LEVOTHYROXINE SODIUM 50 MCG TABLET PO SCH (13:30)
[2019-05-05] MEDS ORDERED: VANCOMYCIN HCL 1,250 MG in SODIUM CHLORIDE 0.9% 500 ML IV SCH (13:30)
[2019-05-05] MEDS ORDERED: CEFEPIME 1,000 MG in SYRINGE 0 ML IV STA (13:44)
[2019-05-05] MEDS ORDERED: VANCOMYCIN HCL 1,750 MG in SODIUM CHLORIDE 0.9% 500 ML IV STA (13:46)
[2019-05-05] MEDS ORDERED: HEPARIN SOD 5,000 UNIT/0.5 ML VIAL SQ SCH (14:00)
[2019-05-05] MEDS ORDERED: SODIUM BICARB 8.4% INJ 50 MEQ/50 ML SYR IV ONE (14:00)
[2019-05-05] MEDS ORDERED: PANTOprazole 80 MG in DEXTROSE 5% 100 ML IV ONE (14:15)
[2019-05-05] MEDS ORDERED: OCTREOTIDE BOLUS FROM BAG IV ONE (14:15)
--- NOTE | 2019-05-05 14:24 | Pharmacy Report ---
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 * Currently requiring Norepi + Vasopressin * Empiric abx ordered: VANCOMYCIN + CEFEPIME + FLAGYL * Pt has received chemotherapy however not neutropenic * JOSE present and there is discussion of need for possible dialysis; baseline SCr ~1.45 Plan Vancomycin * Loading dose: 1750mg x 1 (21mg/kg) * Will check trough level w/ AM labs tomorrow given estimated half-life > 24 hrs * Goal trough level for sepsis, pulm infxn : 15 to 20 mcg/mL Cefepime * eCrCl < 20cc/min, 2gm load given in ED, will begin 1gm Q 12 hrs this evening Pharmacy will continue to follow and will adjust dose/frequency as necessary. Thank you.
--- NOTE | 2019-05-05 14:24 | Emergency Department Note ---
Entered by Michelle Mejia acting as a scribe for Kevin Emerson DO History of Present Illness General Chief complaint: Altered Mental Status Stated complaint: ams Time Seen by Provider: 05/05/19 09:30 Source: family and other (nurse) Mode of arrival: EMS History of Present Illness Onset (ago): hour(s) (unknown time earlier today) Location: head (altered mental status) Pain Consistency: + other (sudden) Quality: + other (altered mental status) Associated symptoms: + confusion; no shortness of breath and no other (abdominal pain) Treatments prior to arrival: other (supplemental oxygen, 1L fluid) The patient is a 68 year old male presenting to the Emergency Department via EMS complaining of sudden altered mental status starting at an unknown time today. The patients nurse reports that the patients stated that the patient was confused and not acting like his normal self. She states that the patient has esophageal cancer and ascites that was supposed to be drained today in [facility]. She explains that it is unknown if the patient is undergoing any chemotherapy or radiation at this time. She notes that the patient received supplemental oxygen and 1L of fluids [employer] from EMS. The patient denies abdominal pain, nausea and vomiting. The HPI and ROS are limited due to AMS. Home Medications Home Medications Medication Instructions Recorded Confirmed Type atorvastatin 40 mg PO QPM 05/17/18 05/05/19 History pen needle, diabetic [Pen Needle] #30 ea 05/19/18 04/22/19 Rx aspirin 81 mg chewable tablet 1 tab PO PM tab 09/21/18 05/05/19 History multivitamin,us-koaf-yryktpgt 1 tab PO QAM 09/21/18 05/05/19 History nitroglycerin 0.4 mg sublingual 0.4 mg SL Q5M PRN #1 tab 09/21/18 05/05/19 History tablet blood sugar diagnostic #100 ea 11/19/18 04/22/19 Rx blood-glucose meter #1 ea 11/19/18 04/22/19 Rx carvedilol 6.25 mg tablet 6.25 mg PO BID #180 tab 12/07/18 05/05/19 Rx mirtazapine 7.5 mg tablet 7.5 mg PO PM 02/22/19 05/05/19 History loperamide 2 mg tablet 2 mg PO Q4H PRN #14 tab 03/08/19 05/05/19 Rx insulin glargine 100 unit/mL (3 10 units SQ DAILY #15 ml 03/15/19 05/05/19 Rx mL) subcutaneous pen Wheelchair (Manual or Powered) #1 ea 03/25/19 04/22/19 Rx levothyroxine 50 mcg PO QAM 04/22/19 05/05/19 History lisinopril 20 mg tablet 10 mg PO BID tab 05/04/19 05/05/19 History pantoprazole 40 mg PO QAM 05/05/19 05/05/19 History psyllium husk [Metamucil] 1.04 g PO QAM 05/05/19 05/05/19 History Allergies Allergy/AdvReac Type Severity Reaction Status Date / Time Penicillins Allergy Intermediate HIVES Verified 04/22/19 10:28 Past Med/Surg History Medical History Acute kidney injury Anemia Anemia Basal cell carcinoma, face (Acute) Bilateral carotid artery stenosis (Acute) Brain lesion Cancer Cerebrovascular accident R sided weakness more likely due to swelling from brain tumors CHF (congestive heart failure), NYHA class II (Acute) Chronic nasal congestion (Acute) Coronary artery disease Diabetes Diastolic dysfunction (Acute) Dyslipidemia Heart disease HTN (hypertension) Insomnia (Acute) Peripheral arterial disease (Acute) Proteinuria (Chronic) Secondary hyperparathyroidism of renal origin (Chronic) Thoracic aortic ectasia (Acute) Vitamin D deficiency (Chronic) Surgical History S/P triple vessel bypass Family History Mother Family history of cardiac disorder Father Diabetes Hypertension Other Cancer Heart disease Kidney disease Myocardial infarction Seizure Denies family history of Colon cancer Ovarian cancer Prostate cancer Breast cancer Social History Preferred Language: Turkmen Communication Ability: Effective Communication Ability Comment: altered mental status Geotechnicial Properties Technician Required: No Beliefs That Will Affect Care: None marital status: Current Living Situation: Spouse current occupational status: retired Other Information That Helps Us Care for You: No Feels Safe at Home: Yes Safety Concerns: Feels Safe At This Time Smoking Status: Former smoker Cigarettes Per Day: smokeless tabacco use daily ; Second Hand Exposure: No ; Hx Alcohol Use: No Hx Substance Use: No Dental Care, Regularly: Yes Physical Activity Frequency: 3-4 Times per Week Review of Systems The HPI and ROS are limited due to AMS. Physical Exam Vital Signs Vital Signs - 24 hr 05/05/19 09:26 05/05/19 09:33 05/05/19 09:36 Temperature Temperature Source Pulse Rate 106 H Pulse Rate [Apical] Pulse Rate from SpO2 Sensor Respiratory Rate 20 23 22 Blood Pressure 88/51 L 88/44 L Blood Pressure [Right Arm] Blood Pressure Mean 61 58 Blood Pressure Mean [Right Arm] Blood Pressure Position Pulse Oximetry Oxygen Delivery Method Oxygen Flow Rate Sepsis Recent Fever Within 48 Hours No Sepsis New/Unexplained Change in Mental Status No Sepsis Action Taken by Nursing No Action Required Oxygen Flow Rate - Titration 05/05/19 09:39 05/05/19 09:41 05/05/19 09:49 Temperature Temperature Source Pulse Rate 79 58 L 58 L Pulse Rate [Apical] Pulse Rate from SpO2 Sensor 109 H 104 H 58 L Respiratory Rate 14 21 10 L Blood Pressure 65/51 L 83/49 L Blood Pressure [Right Arm] Blood Pressure Mean 53 61 Blood Pressure Mean [Right Arm] Blood Pressure Position Pulse Oximetry 90 100 Oxygen Delivery Method Oxygen Flow Rate Sepsis Recent Fever Within 48 Hours Sepsis New/Unexplained Change in Mental Status Sepsis Action Taken by Nursing Oxygen Flow Rate - Titration 05/05/19 09:51 05/05/19 09:52 05/05/19 09:59 Temperature Temperature Source Pulse Rate 58 L 54 L 57 L Pulse Rate [Apical] 54 L Pulse Rate from SpO2 Sensor 57 L 55 L 56 L Respiratory Rate 14 11 L 11 L Blood Pressure 85/40 L 80/45 L Blood Pressure [Right Arm] 85/40 L Blood Pressure Mean 54 52 Blood Pressure Mean [Right Arm] 55 Blood Pressure Position Pulse Oximetry 100 99 100 Oxygen Delivery Method Nasal Cannula Oxygen Flow Rate 2 Sepsis Recent Fever Within 48 Hours Sepsis New/Unexplained Change in Mental Status Sepsis Action Taken by Nursing Oxygen Flow Rate - Titration 05/05/19 10:01 05/05/19 10:02 05/05/19 10:04 Temperature Temperature Source Pulse Rate 57 L 54 L Pulse Rate [Apical] 57 L Pulse Rate from SpO2 Sensor 55 L 59 L Respiratory Rate 13 12 12 Blood Pressure 71/39 L Blood Pressure [Right Arm] 71/39 L Blood Pressure Mean 55 Blood Pressure Mean [Right Arm] 49 Blood Pressure Position Pulse Oximetry 100 100 98 Oxygen Delivery Method Nasal Cannula Oxygen Flow Rate 2 Sepsis Recent Fever Within 48 Hours Sepsis New/Unexplained Change in Mental Status Sepsis Action Taken by Nursing Oxygen Flow Rate - Titration 05/05/19 10:06 05/05/19 10:10 05/05/19 10:30 Temperature Temperature Source Pulse Rate 58 L 57 L 59 L Pulse Rate [Apical] Pulse Rate from SpO2 Sensor 58 L 55 L Respiratory Rate 13 18 14 Blood Pressure 81/31 L 67/36 L 88/50 L Blood Pressure [Right Arm] Blood Pressure Mean 44 45 63 Blood Pressure Mean [Right Arm] Blood Pressure Position Pulse Oximetry Oxygen Delivery Method Oxygen Flow Rate Sepsis Recent Fever Within 48 Hours Sepsis New/Unexplained Change in Mental Status Sepsis Action Taken by Nursing Oxygen Flow Rate - Titration 05/05/19 10:32 05/05/19 10:35 05/05/19 10:40 Temperature Temperature Source Pulse Rate 59 L 62 Pulse Rate [Apical] 58 L Pulse Rate from SpO2 Sensor Respiratory Rate 16 14 17 Blood Pressure 81/49 L Blood Pressure [Right Arm] 88/50 L Blood Pressure Mean 59 Blood Pressure Mean [Right Arm] 62 Blood Pressure Position Pulse Oximetry Oxygen Delivery Method Nasal Cannula Oxygen Flow Rate Sepsis Recent Fever Within 48 Hours Sepsis New/Unexplained Change in Mental Status Sepsis Action Taken by Nursing Oxygen Flow Rate - Titration 2 05/05/19 10:41 05/05/19 10:46 05/05/19 10:50 Temperature Temperature Source Pulse Rate 59 L 59 L 59 L Pulse Rate [Apical] Pulse Rate from SpO2 Sensor Respiratory Rate 14 12 20 Blood Pressure 63/40 L 101/70 Blood Pressure [Right Arm] Blood Pressure Mean 41 94 Blood Pressure Mean [Right Arm] Blood Pressure Position Pulse Oximetry Oxygen Delivery Method Oxygen Flow Rate Sepsis Recent Fever Within 48 Hours Sepsis New/Unexplained Change in Mental Status Sepsis Action Taken by Nursing Oxygen Flow Rate - Titration 05/05/19 10:51 05/05/19 10:58 05/05/19 11:00 Temperature Temperature Source Pulse Rate 57 L 58 L Pulse Rate [Apical] Pulse Rate from SpO2 Sensor Respiratory Rate 18 12 Blood Pressure 131/80 97/55 L 91/53 L Blood Pressure [Right Arm] Blood Pressure Mean 91 67 70 Blood Pressure Mean [Right Arm] Blood Pressure Position Pulse Oximetry Oxygen Delivery Method Oxygen Flow Rate Sepsis Recent Fever Within 48 Hours Sepsis New/Unexplained Change in Mental Status Sepsis Action Taken by Nursing Oxygen Flow Rate - Titration 05/05/19 11:05 05/05/19 11:10 05/05/19 11:15 Temperature Temperature Source Pulse Rate 59 L 62 Pulse Rate [Apical] Pulse Rate from SpO2 Sensor 59 L 60 Respiratory Rate 11 L 14 Blood Pressure 103/54 L 93/65 L Blood Pressure [Right Arm] Blood Pressure Mean 67 78 Blood Pressure Mean [Right Arm] Blood Pressure Position Pulse Oximetry 100 100 100 Oxygen Delivery Method Nasal Cannula Oxygen Flow Rate 2 Sepsis Recent Fever Within 48 Hours Sepsis New/Unexplained Change in Mental Status Sepsis Action Taken by Nursing Oxygen Flow Rate - Titration 05/05/19 11:16 05/05/19 11:20 05/05/19 11:30 Temperature Temperature Source Pulse Rate 63 63 63 Pulse Rate [Apical] Pulse Rate from SpO2 Sensor 63 60 63 Respiratory Rate 16 11 L 19 Blood Pressure 119/56 L Blood Pressure [Right Arm] Blood Pressure Mean 86 Blood Pressure Mean [Right Arm] Blood Pressure Position Pulse Oximetry 100 100 100 Oxygen Delivery Method Oxygen Flow Rate Sepsis Recent Fever Within 48 Hours Sepsis New/Unexplained Change in Mental Status Sepsis Action Taken by Nursing Oxygen Flow Rate - Titration 05/05/19 11:31 05/05/19 11:35 05/05/19 11:40 Temperature 31.1 C L Temperature Source Rectal Pulse Rate 64 62 60 Pulse Rate [Apical] Pulse Rate from SpO2 Sensor 62 62 60 Respiratory Rate 20 15 16 Blood Pressure 96/47 L 73/44 L Blood Pressure [Right Arm] Blood Pressure Mean 52 55 Blood Pressure Mean [Right Arm] Blood Pressure Position Lying Pulse Oximetry 100 100 100 Oxygen Delivery Method Oxygen Flow Rate 2 Sepsis Recent Fever Within 48 Hours Sepsis New/Unexplained Change in Mental Status Sepsis Action Taken by Nursing Oxygen Flow Rate - Titration 05/05/19 11:46 05/05/19 11:50 05/05/19 11:51 Temperature 31.8 C L Temperature Source Rectal Pulse Rate 60 58 L 59 L Pulse Rate [Apical] Pulse Rate from SpO2 Sensor 60 57 L 59 L Respiratory Rate 12 18 15 Blood Pressure 91/50 L 82/39 L Blood Pressure [Right Arm] Blood Pressure Mean 56 46 Blood Pressure Mean [Right Arm] Blood Pressure Position Pulse Oximetry 100 100 100 Oxygen Delivery Method Oxygen Flow Rate Sepsis Recent Fever Within 48 Hours Sepsis New/Unexplained Change in Mental Status Sepsis Action Taken by Nursing Oxygen Flow Rate - Titration 05/05/19 11:57 Temperature Temperature Source Pulse Rate 58 L Pulse Rate [Apical] Pulse Rate from SpO2 Sensor 58 L Respiratory Rate 20 Blood Pressure 74/47 L Blood Pressure [Right Arm] Blood Pressure Mean 51 Blood Pressure Mean [Right Arm] Blood Pressure Position Pulse Oximetry 100 Oxygen Delivery Method Oxygen Flow Rate Sepsis Recent Fever Within 48 Hours Sepsis New/Unexplained Change in Mental Status Sepsis Action Taken by Nursing Oxygen Flow Rate - Titration GENERAL: Patient is lying in bed, ill appearing, significant distress, lethargic EYE EXAM: normal conjunctiva OROPHARYNX: no exudate, no erythema, lips, buccal mucosa, and tongue normal and mucous membranes are moist NECK: supple, no nuchal rigidity, no adenopathy, non-tender LUNGS: Diminished sounds bilaterally. Normal chest wall mechanics HEART: no murmurs, S1 normal and S2 normal ABDOMEN: Abdomen is distended. Reducible periumbilical hernia. Abdomen soft, non-tender, normo-active bowel sounds, no masses, no rebound or guarding. BACK: Back is symmetrical on inspection and there is no deformity, no midline tenderness, no CVA tenderness. SKIN: no rashes and no bruising UPPER EXTREMITIES: upper extremities are grossly normal. LOWER EXTREMITIES: No pitting edema. NEURO EXAM: Awake, alert, oriented to person. Following commands. Non-focal. Course Course ED COURSE: Vital signs were reviewed and showed hypotension and bradycardia. The patients medical record was reviewed The above diagnostic studies were performed and reviewed. ED treatments and interventions as stated above. 0928: The patient was evaluated in room C3. A complete history and physical examination was performed. 0942: I reevaluated the patient at this time. 0950: I check on the patient whose pressure is 65/51. 0958: I reevaluated the patient. 1105: I discussed the patients case with Dr. Andre GROVER hospitalist. She will evaluate the patient for further management, 1109: I discussed the patients case with Dr. Chaudhry Crime Scene Specialist. 1130: The patients family consented to give the patient blood at this time. 1135: Upon reevaluation, I discussed my findings with the patient and his family who understands and agrees with the treatment plan. Based on the patients age, coexisting illnesses, exam and lab findings the decision to treat as an inpatient was made. The patient remained stable while under my care. The patient will be evaluated for further management. Administered Medications Norepinephrine Bitartrate 8 mg (/ Dextrose) 508 mls @ 15.926 mls/hr IV .Q24H ADONIS; Protocol Stop: 06/04/19 09:59 Last Titration: 05/05/19 11:00 Dose: 0.07 mcg/kg/min, 22.3 mls/hr Documented by: [id number] Admin: 05/05/19 10:06 Dose: 0.05 mcg/kg/min, 15.9 mls/hr Documented by: [id number] Cosigned by: [id number] Magnesium Sulfate/Dextrose (Magnesium Sulfate / D5w) 1 gm in 100 mls @ 100 mls/hr IV Q1H ADONIS Stop: 05/05/19 15:29 Last Admin: 05/05/19 13:29 Dose: 100 mls/hr Documented by: [id number] Discontinued Medications Sodium Chloride (Nss 1000ml) 1,000 mls @ 999 mls/hr IV .Q1H1M ADONIS Stop: 05/05/19 10:45 Last Infusion: 05/05/19 11:17 Dose: 0 mls/hr Documented by: [id number] Admin: 05/05/19 10:03 Dose: 999 mls/hr Documented by: [id number] Albumin Human (Albumin 25%) 50 mls @ 50 mls/hr IV Q1H ADONIS Stop: 05/05/19 13:25 Last Admin: 05/05/19 13:28 Dose: Not Given Documented by: [id number] Admin: 05/05/19 13:23 Dose: Not Given Documented by: [id number] Admin: 05/05/19 13:22 Dose: Not Given Documented by: [id number] Infusion: 05/05/19 11:16 Dose: 0 mls/hr Documented by: [id number] Admin: 05/05/19 09:55 Dose: 50 mls/hr Documented by: [id number] Albumin Human (Albumin 25%) 50 mls @ 50 mls/hr IV Q1H ADONIS Last Admin: 05/05/19 13:28 Dose: Not Given Documented by: [id number] Admin: 05/05/19 13:23 Dose: Not Given Documented by: [id number] Admin: 05/05/19 13:22 Dose: Not Given Documented by: [id number] Infusion: 05/05/19 11:16 Dose: 0 mls/hr Documented by: [id number] Admin: 05/05/19 10:03 Dose: 50 mls/hr Documented by: [id number] Sodium Chloride (Nss 1000ml) 1,000 mls @ 999 mls/hr IV .Q1H1M ONE Stop: 05/05/19 11:49 Last Infusion: 05/05/19 11:59 Dose: 0 mls/hr Documented by: [id number] Admin: 05/05/19 10:56 Dose: 999 mls/hr Documented by: [id number] Cefepime HCl (Maxipime) 2,000 mg in 20 mls @ 5 mls/min IV NOW STA; Protocol Stop: 05/05/19 10:57 Last Admin: 05/05/19 11:20 Dose: 5 mls/min Documented by: [id number] Sodium Chloride (Nss 1000ml) 1,000 mls @ 80 mls/hr IV .[id number] ADONIS Stop: 06/04/19 13:05 Last Admin: 05/05/19 13:29 Dose: 80 mls/hr Documented by: [id number] Miscellaneous () 1 ea N/A NOW STA Stop: 05/05/19 09:52 Last Admin: 05/05/19 10:56 Dose: 1 ea Documented by: [id number] Norepinephrine Bitartrate (Levophed Inj) Confirm Administered Dose 4 mg IV .STK- MED ONE Stop: 05/05/19 09:48 Last Admin: 05/05/19 10:03 Dose: Not Given Documented by: [id number] Critical Care Time Critical Care Time: Yes Total Critical Care Time: 80 I have personally spent 80 minutes of critical care time in the direct management of this patient. This includes bedside care, interpretation of diagnostic studies, and testing, discussion with consultants, patient, and family members, and other required patient management activities. This 80 m inutes is in excess of all separately billable procedures. Medical Decision Making Differential Diagnosis Differential diagnosis includes etiologies such as sepsis, UTI, pneumonia, metabolic, electrolyte abnormalities, cardiac sources, intracerebral event, toxicologic, neurologic, as well as others were entertained. Medical Records Attestation: I reviewed the patient's medical records. Home Medications Current Medication List: was personally reviewed by me Laboratory Data Attestation: I reviewed the patient's lab results. Result diagrams: 05/05/19 09:30 05/05/19 09:30 Lab Results 05/05/19 05/05/19 05/05/19 Range/Units 09:30 09:30 09:30 WBC (4.8-10.8) K/uL RBC (4.7-6.1) M/uL Hgb (14.0-18.0) g/dL Hct (42-52) % MCV (80-100) fL MCH (25-34) pg MCHC (32-36) g/dL RDW Std Deviation (36.4-46.3) fL RDW Coeff of Jeannette (11.5-14.5) % Plt Count (130-400) K/uL MPV (7.4-10.4) fL Immature Gran % (Auto) % Neut % (Auto) % Lymph % (Auto) % Kaufman % (Auto) % Eos % (Auto) % Baso % (Auto) % Immature Gran # (Auto) (0.00-0.02) K/uL Neut # (Auto) (1.4-6.5) K/uL Lymph # (Auto) (1.2-3.4) K/uL Kaufman # (Auto) (0.11-0.59) K/uL Eos # (Auto) (0-0.5) K/uL Baso # (Auto) (0-0.2) K/uL Hyposegmented Neuts PT 15.6 H (9.0-12.0) Seconds INR 1.5 H (0.9-1.1) VBG pH (7.36-7.41) VBG pCO2 (38-50) mmHg VBG pO2 mmHg VBG HCO3 mmol/L VBG O2 Saturation VBG Base Excess mEq/L Barometric Pressure mm/Hg Sodium 138 (136-145) mmol/L Potassium 4.2 (3.5-5.1) mmol/L Chloride 114 H (98-107) mmol/L Carbon Dioxide 10 L (21-32) mmol/L Anion Gap 14.0 H (3-11) BUN 137 H (7-18) mg/dl Creatinine 4.23 H (0.6-1.4) mg/dl Est Cr Clr Drug Dosing 16.2 ml/min Est GFR ( Amer) 15.4 Est GFR (Non-Af Amer) 13.3 BUN/Creatinine Ratio 32.4 H (10-20) Glucose 93 (70-99) mg/dl Lactate 1.3 (0.4-2.0) mmol/L Calcium 8.1 L (8.5-10.1) mg/dl Magnesium 1.3 L (1.8-2.4) mg/dl Total Bilirubin 0.5 (0.2-1) mg/dl AST 30 (15-37) U/L ALT 18 (12-78) U/L Alkaline Phosphatase 156 H (45-117) U/L Ammonia (11-32) umol/L Troponin I < 0.015 (0-0.045) ng/ml Total Protein 6.1 L (6.4-8.2) gm/dl Albumin 1.4 L (3.4-5.0) gm/dl Globulin 4.7 H (2.5-4.0) gm/dl Albumin/Globulin Ratio 0.3 L (0.9-2) TSH 5.710 H (0.300-4.500) uIu/ml Free T4 1.16 (0.8-1.6) ng/dl Urine Color Urine Appearance (Clear) Urine pH (4.5-7.5) Ur Specific Ord (1.000-1.030) Urine Protein (Negative) Urine Glucose (UA) (Negative) Urine Ketones (Negative) Urine Blood (Negative) Urine Nitrite (Negative) Urine Bilirubin (Negative) Urine Urobilinogen (Negative) Ur Leukocyte Esterase (Negative) Urine WBC (Auto) (0-5) /hpf Urine RBC (Auto) (0-4) /hpf U Hyaline Cast (Auto) (0-5) /lpf U Epithel Cells (Auto) (0-5) /lpf Urine Bacteria (Auto) (Negative) Ur Renal Epithelial Cell Urine Yeast Blood Type Antibody Screen Crossmatch 05/05/19 05/05/19 05/05/19 Range/Units 09:30 09:58 09:58 WBC 3.69 L (4.8-10.8) K/uL RBC 2.48 L (4.7-6.1) M/uL Hgb 7.3 L (14.0-18.0) g/dL Hct 22.5 L (42-52) % MCV 90.7 (80-100) fL MCH 29.4 (25-34) pg MCHC 32.4 (32-36) g/dL RDW Std Deviation 59.4 H (36.4-46.3) fL RDW Coeff of Jeannette 18.2 H (11.5-14.5) % Plt Count 67 L (130-400) K/uL MPV 11.0 H (7.4-10.4) fL Immature Gran % (Auto) 0.3 % Neut % (Auto) 69.4 % Lymph % (Auto) 24.7 % Kaufman % (Auto) 5.1 % Eos % (Auto) 0.5 % Baso % (Auto) 0.0 % Immature Gran # (Auto) 0.01 (0.00-0.02) K/uL Neut # (Auto) 2.56 (1.4-6.5) K/uL Lymph # (Auto) 0.91 L (1.2-3.4) K/uL Kaufman # (Auto) 0.19 (0.11-0.59) K/uL Eos # (Auto) 0.02 (0-0.5) K/uL Baso # (Auto) 0.00 (0-0.2) K/uL Hyposegmented Neuts 1+ PT (9.0-12.0) Seconds INR (0.9-1.1) VBG pH 7.02 L (7.36-7.41) VBG pCO2 23 L (38-50) mmHg VBG pO2 54 mmHg VBG HCO3 6 mmol/L VBG O2 Saturation TNP VBG Base Excess -23.2 mEq/L Barometric Pressure 735.2 mm/Hg Sodium (136-145) mmol/L Potassium (3.5-5.1) mmol/L Chloride (98-107) mmol/L Carbon Dioxide (21-32) mmol/L Anion Gap (3-11) BUN (7-18) mg/dl Creatinine (0.6-1.4) mg/dl Est Cr Clr Drug Dosing ml/min Est GFR ( Amer) Est GFR (Non-Af Amer) BUN/Creatinine Ratio (10-20) Glucose (70-99) mg/dl Lactate (0.4-2.0) mmol/L Calcium (8.5-10.1) mg/dl Magnesium (1.8-2.4) mg/dl Total Bilirubin (0.2-1) mg/dl AST (15-37) U/L ALT (12-78) U/L Alkaline Phosphatase (45-117) U/L Ammonia (11-32) umol/L Troponin I (0-0.045) ng/ml Total Protein (6.4-8.2) gm/dl Albumin (3.4-5.0) gm/dl Globulin (2.5-4.0) gm/dl Albumin/Globulin Ratio (0.9-2) TSH (0.300-4.500) uIu/ml Free T4 (0.8-1.6) ng/dl Urine Color Urine Appearance (Clear) Urine pH (4.5-7.5) Ur Specific Ord (1.000-1.030) Urine Protein (Negative) Urine Glucose (UA) (Negative) Urine Ketones (Negative) Urine Blood (Negative) Urine Nitrite (Negative) Urine Bilirubin (Negative) Urine Urobilinogen (Negative) Ur Leukocyte Esterase (Negative) Urine WBC (Auto) (0-5) /hpf Urine RBC (Auto) (0-4) /hpf U Hyaline Cast (Auto) (0-5) /lpf U Epithel Cells (Auto) (0-5) /lpf Urine Bacteria (Auto) (Negative) Ur Renal Epithelial Cell Urine Yeast Blood Type O Positive Antibody Screen NEGATIVE Crossmatch See Detail 05/05/19 05/05/19 Range/Units 10:59 11:13 WBC (4.8-10.8) K/uL RBC (4.7-6.1) M/uL Hgb (14.0-18.0) g/dL Hct (42-52) % MCV (80-100) fL MCH (25-34) pg MCHC (32-36) g/dL RDW Std Deviation (36.4-46.3) fL RDW Coeff of Jeannette (11.5-14.5) % Plt Count (130-400) K/uL MPV (7.4-10.4) fL Immature Gran % (Auto) % Neut % (Auto) % Lymph % (Auto) % Kaufman % (Auto) % Eos % (Auto) % Baso % (Auto) % Immature Gran # (Auto) (0.00-0.02) K/uL Neut # (Auto) (1.4-6.5) K/uL Lymph # (Auto) (1.2-3.4) K/uL Kaufman # (Auto) (0.11-0.59) K/uL Eos # (Auto) (0-0.5) K/uL Baso # (Auto) (0-0.2) K/uL Hyposegmented Neuts PT (9.0-12.0) Seconds INR (0.9-1.1) VBG pH (7.36-7.41) VBG pCO2 (38-50) mmHg VBG pO2 mmHg VBG HCO3 mmol/L VBG O2 Saturation VBG Base Excess mEq/L Barometric Pressure mm/Hg Sodium (136-145) mmol/L Potassium (3.5-5.1) mmol/L Chloride (98-107) mmol/L Carbon Dioxide (21-32) mmol/L Anion Gap (3-11) BUN (7-18) mg/dl Creatinine (0.6-1.4) mg/dl Est Cr Clr Drug Dosing ml/min Est GFR ( Amer) Est GFR (Non-Af Amer) BUN/Creatinine Ratio (10-20) Glucose (70-99) mg/dl Lactate (0.4-2.0) mmol/L Calcium (8.5-10.1) mg/dl Magnesium (1.8-2.4) mg/dl Total Bilirubin (0.2-1) mg/dl AST (15-37) U/L ALT (12-78) U/L Alkaline Phosphatase (45-117) U/L Ammonia 89.0 H (11-32) umol/L Troponin I (0-0.045) ng/ml Total Protein (6.4-8.2) gm/dl Albumin (3.4-5.0) gm/dl Globulin (2.5-4.0) gm/dl Albumin/Globulin Ratio (0.9-2) TSH (0.300-4.500) uIu/ml Free T4 (0.8-1.6) ng/dl Urine Color Dark Yellow Urine Appearance Turbid A (Clear) Urine pH 5.0 (4.5-7.5) Ur Specific Ord 1.027 (1.000-1.030) Urine Protein 2+ H (Negative) Urine Glucose (UA) Negative (Negative) Urine Ketones Trace H (Negative) Urine Blood Negative (Negative) Urine Nitrite Negative (Negative) Urine Bilirubin Negative (Negative) Urine Urobilinogen Negative (Negative) Ur Leukocyte Esterase 1+ H (Negative) Urine WBC (Auto) >30 H (0-5) /hpf Urine RBC (Auto) 10-30 H (0-4) /hpf U Hyaline Cast (Auto) >30 H (0-5) /lpf U Epithel Cells (Auto) >30 H (0-5) /lpf Urine Bacteria (Auto) Negative (Negative) Ur Renal Epithelial Cell Not Reportable Urine Yeast Not Reportable Blood Type Antibody Screen Crossmatch Imaging Data Radiologist's Impression: Radiology results as stated below per my review and the radiologist's interpretation: CT head/brain wo con CLINICAL HISTORY: Acute change in mental status. COMPARISON STUDY: MRI the brain dated 05/17/2018, head CT dated 05/17/2018 TECHNIQUE: Axial CT of the brain is performed from the vertex to the skull base. IV contrast was not administered for this examination. A dose lowering technique was utilized adhering to the principles of ALARA. CT DOSE: FINDINGS: There has been resolution of the previous described areas of vasogenic edema. No intra or extra-axial masses are visualized on this noncontrast study. There is no CT evidence of acute cortical infarction. There is no midline shift. There is no acute hemorrhage. There are patchy white matter hypodensities likely on a small vessel basis. There is no evidence of pathologic ventricular dilatation. There is extensive left mastoid effusion and mild right mastoid effusion. Given the prior multiple enhancing lesions, if further evaluation is desired, an MRI would be considered the test of choice. IMPRESSION: 1. Interval development of bilateral mastoid effusions, more severe in the left 2. The previously identified areas of vasogenic edema are no longer visualized. No mass lesions are identified on this noncontrast study. 3. No evidence of acute hemorrhage ACT 112: Negative or not required by law. Electronically signed by: Franklin Barahona M.D. 05/05/2019 10:[address] SCAN OF THE ABDOMEN AND PELVIS WITHOUT IV CONTRAST CLINICAL HISTORY: Hypotension. Change in mental status. Metastatic disease. COMPARISON STUDY: Abdominal CT dated 03/04/2019 and 05/17/2018. TECHNIQUE: CT scan of the abdomen and pelvis is performed from the lung bases to the proximal femora. Images are reviewed in the axial, sagittal, and coronal planes. IV contrast was not administered for this examination as per the referring clinician. Note that the examination is suboptimal without oral and IV contrast. The examination is also degraded by motion artifact, and by streak artifact from the arms which could not be elevated above the abdomen. A dose low ering technique was utilized adhering to the principles of ALARA. CT DOSE: 2209.76 mGy.cm FINDINGS: Lung bases: The patient is status post midline sternotomy. The heart is enlarged and without pericardial effusion. The coronary arteries are densely calcified. There is diminished attenuation of the cardiac blood pool as compared to the myocardium suggesting anemia. There are trace pleural effusions with dependent atelectasis and interlobular septal thickening is noted at the lung bases. There is a 2.5 cm cavitary nodule in the right lower lobe seen image #10 and a 1.8 cm cavitary nodule in the right lower lobe seen on image #12. Additional smaller nodules are present at both lung bases in the lingula on image #1, the right middle lobe on images #4 and #9, and in the right lower lobe in image #9. These are new from 03/04/2019. Mild gynecomastia is noted. Liver: Evaluation of the liver is degraded by streak artifact. The unenhanced liver is liver is cirrhotic in morphology and heterogeneous in attenuation. There is nodularity of the hepatic surface contour as well as hypertrophy of the left lobe and caudate. There is no intrahepatic biliary ductal dilatation. A 2.1 cm right lobe metastasis seen on image #96 is unchanged. No additional hepatic lesions are clearly seen. This is not well assessed due to significant streak artifact and lack of IV contrast. Gallbladder: There are calcified gallstones. The gallbladder is otherwise normal as imaged. Spleen: The spleen is enlarged, measuring 16.8 cm in length. Pancreas: The unenhanced pancreas is mildly atrophic and grossly unremarkable. Adrenal glands: Unremarkable. Kidneys: The unenhanced kidneys demonstrate cortical atrophy and are without hydronephrosis. There are no renal calculi identified. A 4.5 cm complex cyst is again seen arising exophytically from the left kidney. Abdominal vasculature: There is advanced atherosclerotic calcification mild ectasia of the abdominal aorta. An infrarenal IVC filter is in place. Bowel: There is no bowel obstruction. There are scattered colonic diverticula without CT evidence of acute diverticulitis. Question underdistention versus wall thickening involving the left colon. The appendix is not visualized. Peritoneum: There is no intraperitoneal free air. There is a large volume of abdominal ascites. There is a large inguinal hernia which contains ascitic fluid. Lymphadenopathy: Upper abdominal lymphadenopathy is likely unchanged from 03/04/2019 but has significantly decreased from 05/17/2018. A node in the valeri hepatis on image #155 measures approximately 3 x 5 cm. Pelvic viscera: The bladder is decompressed and not well evaluated. The prostate gland is mildly enlarged and heterogeneous. Skeletal structures: The skeletal structures are osteopenic. Moderate lumbo sacral spondylosis is observed. There is a mild chronic superior endplate compression fracture of L1. No lytic or blastic lesions are seen. There are healed bilateral rib fractures. Soft tissues: There is mild body wall edema. IMPRESSION: 1. Suboptimal examination without oral and IV contrast. The examination is also degraded by streak and motion artifact. 2. The liver is cirrhotic in morphology and heterogeneous in attenuation. 3. Splenomegaly and a large volume of abdominal ascites indicate portal hypertension. 4. A right lobe hepatic metastasis and metastatic adenopathy in the upper abdomen is grossly unchanged from 03/04/2019 but decreased from 05/17/2018. 5. There are numerous pulmonary nodules present at both lung bases which are new from 03/04/2019. The largest 2 nodules demonstrate foci of central cavitation. Top differential considerations include pulmonary metastatic disease or possibly cavitary pneumonia/septic emboli. Clinical correlation will be essential. 6. Cardiomegaly with evidence of anemia. 7. Mild intralobular septal thickening is seen at the lung bases and and could represent acute and/or chronic congestive change. Clinical correlation will be required. 8. Trace pleural effusions. 9. Underdistention versus wall thickening is suggested in the left colon. Clinical correlation will be required. 9. Cholelithiasis. 10. Additional findings as above. ACT 112: Negative or not required by law. Electronically signed by: Sreedhar Cao M.D. 05/05/2019 11:03 AM SINGLE VIEW CHEST CLINICAL HISTORY: Generalized weakness. FINDINGS: An AP, portable, upright chest radiograph is compared to study dated 05/13/2018 and correlated with chest CT dated 05/17/2018. The examination is degraded by portable technique and patient rotation. A right internal jugular central venous infusion port is new from previous. The the patient is status post midline sternotomy. The heart is enlarged noting atherosclerotic calcif ication of the thoracic aorta. The pulmonary vasculature is noncongested. Chronic interstitial thickening is similar to previous. Scarring/atelectasis is noted at the lung bases. No airspace consolidation or large pleural effusion is identified. No pneumothorax is seen. The skeletal structures are osteopenic. The bony thorax is grossly intact. IMPRESSION: Cardiomegaly with no acute cardiopulmonary abnormality. ACT 112: Negative or not required by law. Electronically signed by: Sreedhar Cao M.D. 05/05/2019 10:08 AM ECG Data Attestation: I personally reviewed and interpreted this ECG as follows: Indication: + altered mental status Rate (beats per minute): 59 Rhythm: + other (junctional rhythm) ECG Findings: + PVCs and + Other (Low voltage. Poor baseline. T wave flattening in inferior and lateral leads. ) Blood Pressure Blood Pressure Findings: Low blood pressure Blood Pressure Disposition: further management by hospitalist SHEKHAR Narrative Cardiac Monitoring: An order was placed for continuous cardiac monitoring. The monitor shows a rate of 60 with sinus rhythm. Patient is a 68-year-old male with a past medical history of esophageal cancer that presents the ER altered hypothermic bradycardic and hypotensive. Systolic blood pressures were in the 60s. Temperature was 31 degrees. IVs were esta blished blood work was obtained and showed a leukopenia 3000 with a hemoglobin of 7. INR at 1.5. VBG with a pH of 7. BMP with a creatinine for significantly elevated from baseline of 2 per family's last report. Ammonia was elevated at 90. UA was contaminated with multiple epithelial cells. Patient was typed and crossed and given 2 units PRBCs. He was given 2 L of fluids in combination with 2 doses of albumin 2 g of cefepime. Patient was placed on a Levophed drip. Blood pressures trended up to the low 100s. Mentation improved. CT head and CT abdomen pelvis showed no new pathology. Chest x-ray was unremarkable. Patient was monitored closely. Discussed with the hospitalist as well as the hand carver and updated family at bedside. Impression & Plan AMS (altered mental status), Metastatic cancer, Metabolic acidosis, Renal failure, Hypotension Discharge Plan Visit Data *Final* Discharge Date/Time: 05/05/19 12:29 Chief Complaint: Altered Mental Status Stated Complaint: ams ED Provider: Kevin Emerson Discharge Problem: AMS (altered mental status), Metastatic cancer, Metabolic acidosis, Renal failure, Hypotension Patient Disposition: Admitted As Inpatient Discharge Instructions Interventions: ED Discharge Assessment Last Done: 05/05/19 12:29 Discharge Problem: AMS (altered mental status) Qualifiers: Altered mental status type: unspecified Qualified Code(s): R41.82 - Altered mental status, unspecified Renal failure Qualifiers: Renal failure chronicity: unspecified chronicity Qualified Code(s): N19 - Unspecified kidney failure Hypotension Qualifiers: Hypotension type: unspecified hypotension type Qualified Code(s): I95.9 - Hypotension, unspecified The scribe's documentation has been prepared under my direction and personally reviewed by me in its entirety. I confirm that the note above accurately refl ects all work, treatment, procedures, and medical decision making performed by me.
[2019-05-05] MEDS ORDERED: CEFEPIME CONSULT ACTIVE PRN (14:25)
[2019-05-05] MEDS: metroNIDAZOLE 500 MG/100 ML BAG IV SCH ×2 (14:27→20:44)
[2019-05-05 14:28] LABS: Hematocrit (blood only) 23.3 % (42-52); Hemoglobin 7.8 g/dL (14.0-18.0); Mean Corpuscular Hemoglobin 30.2 pg (25-34); Mean Corpuscular Volume 90.3 fL (80-100); Nucleated RBC # (auto) 0.02 K/uL (0-0); Nucleated RBC % (auto) 0.3 %; RDW Coefficient of Variation 17.7 % (11.5-14.5); RDW Standard Deviation 58.2 fL (36.4-46.3); Red Blood Count 2.58 M/uL (4.7-6.1); White Blood Count 5.33 K/uL (4.8-10.8)
[2019-05-05] MEDS: VASOPRESSIN 20 UNITS in 0.9 % SODIUM CHLORIDE 100 ML IV SCH ×2 (14:28→21:42)
[2019-05-05] MEDS: SODIUM BICARBONATE 8.4% 150 MEQ in DEXTROSE 5% 1,000 ML IV SCH (14:28)
[2019-05-05] MEDS: OCTREOTIDE ACETATE 500 MCG in 0.9 % SODIUM CHLORIDE 100 ML IV SCH (14:29)
[2019-05-05] MEDS: LACTULOSE 200 GM, WATER, STERILE IRRIG 700 ML, BARCODE IDENTIFIER 1 EA PR SCH ×2 (14:31→22:21)
--- NOTE | 2019-05-05 14:37 | Procedure Note ---
Procedure Note Date of Service May 05, 2019 Note INDICATION: Massive ascites rule out infection Ultrasound used to tara location: Y CONSENT: Consent was obtained from prior to the procedure. Indications, risks, and benefits were explained at length. PROCEDURE SUMMARY: A time-out was performed. My hands were washed immediately prior to the procedure. I wore a surgical cap, mask with protective eyewear, sterile gown and sterile gloves throughout the procedure. The area was cleansed and draped in usual sterile fashion using chlorhexidine scrub. Anesthesia was achieved with 1% lidocaine. The right lower quadrant of the abdomen was prepped and draped in a sterile fashion using chlorhexidine scrub. 1% lidocaine was used to numb the skin, soft tissue and peritoneum. The paracentesis catheter was inserted and advanced with negative pressure until yellow colored fluid was aspirated. Approximately 60 mL of ascitic fluid was collected and sent for laboratory analysis. The catheter was then connected to the vaccutainer and 1 liters of additional ascitic fluid were drained. The catheter was left in place for further drainage in the future. the patient tolerated the procedure well without any immediate complications. Coding CPT Codes Abdomen - Abdominal: 71674 Peritoneal Lavage, including imaging guidance, when performed ([id number]) [facility] Procedure Codes (Charges) Abdomen Abdominal: 54950 Peritoneal Lavage, including imaging guidance, when performed
[2019-05-05] MEDS ORDERED: PANTOprazole 40 MG in DEXTROSE 5% 100 ML IV SCH (14:45)
[2019-05-05 14:46] LABS: Mean Corpuscular Hgb Conc 33.5 g/dL (32-36); Mean Platelet Volume 11.2 fL (7.4-10.4); Platelet Count 71 K/uL (130-400)
[2019-05-05 14:48] LABS: Eosinophils # (auto) 0.01 K/uL (0-0.5); Eosinophils % (auto) 0.2 %; Immature Granulocytes # (auto) 0.02 K/uL (0.00-0.02); Immature Granulocytes % (auto) 0.4 %; Lymphocytes # (auto) 1.04 K/uL (1.2-3.4); Lymphocytes % (auto) 19.5 %; Monocytes % (auto) 5.6 %; Neutrophils # (auto) 3.96 K/uL (1.4-6.5); Neutrophils % (auto) 74.3 %
[2019-05-05 14:50] LABS: iSTAT Allen Test Pass; iSTAT Art Bld Gas pCO2 Correct 19 mmHg (35-46); iSTAT Art Bld Gas pH Corrected 7.224 (7.35-7.45); iSTAT Arterial Blood Gas HCO3 8 meg/L (19-24); iSTAT Arterial Blood Gas pCO2 19 mmHg (35-46); iSTAT Arterial Blood Gas pH 7.22 (7.35-7.45); iSTAT Arterial Blood Gas pO2 154 mmHg (80-95); iSTAT Arterial Blood Gas pO2 C 153; iSTAT Carbon Dioxide 8 mmol/L (24-31); iSTAT Hematocrit 36 % (42-52); iSTAT Hemoglobin 12.2 g/dl (14.0-18.0); iSTAT Potassium 3.9 mmol/L (3.3-5.0); iSTAT Site R Radial; iSTAT Sodium 136 mmol/L (135-144)
[2019-05-05 14:55] LABS: Calcium 7.4 mg/dl (8.5-10.1); Creatinine Clr Calc Pharmacy 17.8 ml/min; Est GFR (African American) 17.1; Est GFR (Non-African American) 14.8
--- NOTE | 2019-05-05 14:58 | Critical Care Consultation ---
Date of Consultation May 05, 2019 Assessment & Plan (1) Septic shock: Assessment and Plan -Septic shock secondary to unclear source -Acute metabolic encephalopathy secondary to hyperammonemia and shock -Possible upper GI bleed with a history of cirrhosis -Acute anemia -JOSE possibly secondary to HRS versus ATN -Thrombocytopenia -Hypothermia from sepsis -Possible intra-abdominal hypertension Neurologic: Lactulose ordered per rectum. Avoid sedating medications. If unable to maintain his airway, will likely need intubation if continues to be a full code.. Aspiration precautions Pulmonary: Currently with a severe metabolic acidosis. ABG as follows 7.2/18 0.9/154. Saturating well on nasal cannula. Likely metastatic disease to the lungs. Mild pulmonary edema Cardiovascular: Possible portal pulmonary hypertension from cirrhosis. Very hypotensive. Continue Levophed and vasopressin. Gastrointestinal: Concern for upper GI bleed. Continue Protonix and octreotide for possible variceal bleed. Status post 1 unit of blood. Platelet count 63,000. Repeating a CBC. GI consulted. Patient has large volume of ascites. I did the paracentesis and send this for cultures and chemistries. 1 L volume removed. Lactulose per rectum given his hyperammonemia. Renal: Severe JOSE possibly secondary to HRS versus ATN. Urine sodium pending. Continue albumin infusions. Will avoid crystalloids given his severe hypoalbuminemia. Continue bicarbonate drip for severe metabolic acidosis. Renal consulted. If the family continues wanting aggressive measures, may need continuous renal replacement therapy. Maintain mean arterial pressure above 70. Infectious disease: Patient with septic shock. Possible UTI. Possible peritonitis. Continue vancomycin/cefepime/Flagyl. Blood and urine cultures pending. Procalcitonin ordered. Hematologic: Possible acute blood loss anemia versus effective chemotherapy. Checking a fibrinogen level. Trend CBC. Status post 1 unit of blood with hemoglobin of 7.8. Peripheral smear sent as well. Consider DIC as well versus TTP. Endocrine: History of hypothyroidism. Will consider stress dose steroids. F/E/N: Maintain full n.p.o. status. Lines and tubes: Peripheral IVs in place. Peritoneal drain in place. VTE prophylaxis: Hold DVT prophylaxis CODE STATUS: Full code. Family at bedside: and daughter at bedside updated. Patient with extremely poor prognosis with stage IV metastatic disease and septic shock. This was rela yed to the family. Would recommend conservative measures and possible comfort care if no improvement in the next couple of hours. Disposition: ICU I have personally spent 60 minutes of critical care time in the direct management of this patient. This is a life/limb threatening event. This includes time spent evaluating patient, direct bedside care, chart review, placing orders, interpretation of diagnostic studies, discussion with consultants, patient, and family members, as well as other required patient management activities. This time is exclusive of all separately billable procedures, and teaching time and separate from and in addition to any other critical care service time. Thank you for allowing us to participate in the care of this patient. 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 Patient unable to give any history as the patient is severely encephalopathic. His and daughter at bedside and able to give some collateral history. notes that the patient has been getting paracentesis every other week for ascites. She notes that over the last 2 to 3 days he has become more confused and has not been having any significant p.o. intake. He has been undergoing chemotherapy and is seen by an oncologist in [place]. He is on palliative chemotherapy at this present time. Patient's notes that he has been less communicative and more lethargic. He normally walks with the aid of a walker and has been very unsteady as of late. On evaluation in the ICU, the patient appears very encephalopathic and lethargic. He is mumbling. He is severely hypertensive with a blood pressure of 90/50. He is currently on levo fed. He received 1 unit of blood in the emergency department along with albumin. Admit emergent paracentesis to remove 1 L ascitic fluid. He is tachypneic. I had a lengthy discussion with the patient's daughter and regarding his CODE STATUS. They indicated that he would like to be a full code. I urged him to talk to the rest of their family as well given how dire situation was. I also discussed the case personally with the emergency department physician and the palliative care nurse. Allergies Allergy/AdvReac Type Severity Reaction Status Date / Time Penicillins Allergy Intermediate HIVES Verified 04/22/19 10:28 Home Medications Home Medications Medication Instructions Recorded Confirmed Type atorvastatin 40 mg PO QPM 05/17/18 05/05/19 History pen needle, diabetic [Pen Needle] #30 ea 05/19/18 04/22/19 Rx aspirin 81 mg chewable tablet 1 tab PO PM tab 09/21/18 05/05/19 History multivitamin,[id number] 1 tab PO QAM 09/21/18 05/05/19 History nitroglycerin 0.4 mg sublingual 0.4 mg SL Q5M PRN #1 tab 09/21/18 05/05/19 History tablet blood sugar diagnostic #100 ea 11/19/18 04/22/19 Rx blood-glucose meter #1 ea 11/19/18 04/22/19 Rx carvedilol 6.25 mg tablet 6.25 mg PO BID #180 tab 12/07/18 05/05/19 Rx mirtazapine 7.5 mg tablet 7.5 mg PO PM 02/22/19 05/05/19 History loperamide 2 mg tablet 2 mg PO Q4H PRN #14 tab 03/08/19 05/05/19 Rx insulin glargine 100 unit/mL (3 10 units SQ DAILY #15 ml 03/15/19 05/05/19 Rx mL) subcutaneous pen Wheelchair (Manual or Powered) #1 ea 03/25/19 04/22/19 Rx levothyroxine 50 mcg PO QAM 04/22/19 05/05/19 History lisinopril 20 mg tablet 10 mg PO BID tab 05/04/19 05/05/19 History pantoprazole 40 mg PO QAM 05/05/19 05/05/19 History psyllium husk [Metamucil] 1.04 g PO QAM 05/05/19 05/05/19 History Patient History Medical History Acute kidney injury Anemia Anemia Basal cell carcinoma, face (Acute) Bilateral carotid artery stenosis (Acute) Brain lesion Cancer Cerebrovascular accident R sided weakness more likely due to swelling from brain tumors CHF (congestive heart failure), NYHA class II (Acute) Chronic nasal congestion (Acute) Coronary artery disease Diabetes Diastolic dysfunction (Acute) Dyslipidemia Heart disease HTN (hypertension) Insomnia (Acute) Peripheral arterial disease (Acute) Proteinuria (Chronic) Secondary hyperparathyroidism of renal origin (Chronic) Thoracic aortic ectasia (Acute) Vitamin D deficiency (Chronic) Surgical History S/P triple vessel bypass Family History Mother Family history of cardiac disorder Father Diabetes Hypertension Other Cancer Heart disease Kidney disease Myocardial infarction Seizure Denies family history of Colon cancer Ovarian cancer Prostate cancer Breast cancer Social History Preferred Language: Persian Communication Ability: Effective Communication Ability Comment: altered mental status Instructional Technology Coordinator Required: No Beliefs That Will Affect Care: None marital status: Current Living Situation: Spouse current occupational status: retired Other Information That Helps Us Care for You: No Feels Safe at Home: Yes Safety Concerns: Feels Safe At This Time Smoking Status: Former smoker Cigarettes Per Day: smokeless tabacco use daily ; Second Hand Exposure: No ; Hx Alcohol Use: No Hx Substance Use: No Dental Care, Regularly: Yes Physical Activity Frequency: 3-4 Times per Week Review of Systems Review of Systems: Unobtainable due to cognitive status Physical Exam Constitutional: Patient is extremely frail and cachectic appearing. He appears to be in significant distress. He is writhing around the bed. Eyes: PERRL, conjunctivae normal, anicteric sclerae ENMT: external ear and nose normal, oropharynx normal Neck: trachea midline, no thyromegaly Respiratory: normal respiratory effort, lungs clear to auscultation Cardiovascular: Rate/Rhythm: + bradycardic Heart Sounds: normal S1 and normal S2 2+ pitting edema lower extremities Gastrointestinal (Abdomen): normal bowel sounds, soft, nontender, no hepatosplenomegaly Musculoskeletal: no cyanosis or clubbing, extremities motor strength 5/5 Skin: no rashes, warm and dry Neurologic: Exam is limited due to the patient's mental status. He is grossly encephalopathic. Moving all extremities spontaneously. Psychiatric: A+Ox3, euthymic affect Results & Data ([facility]) Vital Signs (Past 12 Hours) Vital Signs Temp Pulse Pulse Resp BP BP Pulse Ox 05/05/19 13:21 89.1 F L 59 L 20 97/53 L 100 05/05/19 12:36 89.1 F L 59 L 19 82/51 L 100 05/05/19 12:35 60 14 82/51 L 100 05/05/19 12:30 60 20 100 05/05/19 12:23 61 16 05/05/19 12:22 58 L 13 100 05/05/19 12:20 60 15 100 05/05/19 12:15 59 L 20 98/41 L 100 05/05/19 12:12 58 L 22 100 05/05/19 12:10 77 22 100 05/05/19 12:06 88.9 F L 58 L 15 70/32 L 100 05/05/19 12:05 88.9 F L 56 L 20 76/42 L 100 05/05/19 12:01 58 L 17 100 05/05/19 12:00 60 16 100 05/05/19 11:58 57 L 14 100 05/05/19 11:57 58 L 20 74/47 L 100 05/05/19 11:51 89.2 F L 59 L 15 82/39 L 100 05/05/19 11:50 58 L 18 100 05/05/19 11:46 60 12 91/50 L 100 05/05/19 11:40 60 16 100 05/05/19 11:35 62 15 73/44 L 100 05/05/19 11:31 88.0 F L 64 20 96/47 L 100 05/05/19 11:30 63 19 100 05/05/19 11:20 63 11 L 100 05/05/19 11:16 63 16 119/56 L 100 05/05/19 11:15 100 05/05/19 11:10 62 14 93/65 L 100 05/05/19 11:05 59 L 11 L 103/54 L 100 05/05/19 11:00 58 L 12 91/53 L 05/05/19 10:58 57 L 18 97/55 L 05/05/19 10:51 131/80 05/05/19 10:50 59 L 20 05/05/19 10:46 59 L 12 101/70 05/05/19 10:41 59 L 14 63/40 L 05/05/19 10:40 62 17 05/05/19 10:35 59 L 14 81/49 L 05/05/19 10:32 58 L 16 88/50 L 05/05/19 10:30 59 L 14 88/50 L 05/05/19 10:10 57 L 18 67/36 L 05/05/19 10:06 58 L 13 81/31 L 05/05/19 10:04 57 L 12 71/39 L 98 05/05/19 10:02 54 L 12 100 05/05/19 10:01 57 L 13 71/39 L 100 05/05/19 09:59 57 L 11 L 80/45 L 100 05/05/19 09:52 54 L 54 L 11 L 85/40 L 99 05/05/19 09:51 58 L 14 85/40 L 100 05/05/19 09:49 58 L 10 L 83/49 L 100 05/05/19 09:41 58 L 21 05/05/19 09:39 79 14 65/51 L 90 05/05/19 09:36 106 H 22 88/44 L 05/05/19 09:33 23 05/05/19 09:26 20 88/51 L I personally reviewed his labs, chest imaging and EKG Coding Level of Care Code Critical Care 1st 30-74 mins Diagnoses Septic shock A41.9; R65.21 Metabolic encephalopathy G93.41 Hyperammonemia E72.20 Hypervolemia E87.70 Acute kidney injury superimposed on CKD N17.9; N18.9 Esophageal cancer, stage IV C15.9 Diastolic dysfunction I51.89 Acute anemia D64.9 Time Spent (min) 60
[2019-05-05 15:57] LABS: Hematocrit (blood only) 23.2 % (42-52); Hemoglobin 7.8 g/dL (14.0-18.0); Mean Corpuscular Hemoglobin 30.5 pg (25-34); Mean Corpuscular Hgb Conc 33.6 g/dL (32-36); Mean Corpuscular Volume 90.6 fL (80-100); RDW Coefficient of Variation 17.6 % (11.5-14.5); RDW Standard Deviation 57.9 fL (36.4-46.3); Red Blood Count 2.56 M/uL (4.7-6.1); White Blood Count 4.25 K/uL (4.8-10.8)
--- NOTE | 2019-05-05 15:57 | Gastrointestinal Consultation ---
Date of Consultation May 05, 2019 Assessment & Plan (1) AMS (altered mental status): (2) Metastatic cancer: GI received consult for pt to eval for possible GI bleeding, cirrhosis of liver on imaging study. Pt admitted with AMS, unable to obtain ROS or history. Chart is reviewed. 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 He was on chemotherapy, last dose 04/26. He is hypotensive, hypothermic, in ICU. Has pancytopenia. Hgb 7 (baseline 10- 11), plt 71. INR 1.5 . + ARF BUN/Cr 132/3.8. He is receiving IV bicarb, octreotide, Flagyl, Cefepime, Vancomycin, PPI gtt supports. He is currently on 2 vasopressors. On exam, abdomen is soft, no signs of tenderness illicited on palpation, and he just had arshad brown stools. RN reports no signs of n/v. I met with pt's family who wishes for no invasive or heroic measures. Pt is currently DNR/DNI. They agree in deferring endoscopic workup to r/o GI bleeding as he's currently medically unstable. From our standpoint may continue Protonix 40mg IV BID, IVF, blood transfusion prn. Please recall GI prn. Supervising Physician Co-Signing Physician Notes I performed a history and physical examination of the patient today, including specifically on physical exam - soft abdomen. I have discussed the patient's management with the advanced practitioner. Please refer to the nurse practitioner's note for the documented findings and plan of care. Patient with stage 4 esophageal cancer on Chemotherapy, now admitted with sepsis and shock, on 2 vasopressors. Noted with anemia hence GI is consulted. No overt GI bleeding. Family declined EGD and he is now DNR/DNI. Continue PRBC transfusion, PPI and supportive are. Recall GI if needed. History of Present Illness Attending Physician: Shyla Powell DO Allergies Allergy/AdvReac Type Severity Reaction Status Date / Time Penicillins Allergy Intermediate HIVES Verified 04/22/19 10:28 Home Medications Home Medications Medication Instructions Recorded Confirmed Type atorvastatin 40 mg PO QPM 05/17/18 05/05/19 History pen needle, diabetic [Pen Needle] #30 ea 05/19/18 04/22/19 Rx aspirin 81 mg chewable tablet 1 tab PO PM tab 09/21/18 05/05/19 History multivitamin,om-bozd-nqpfrqpe 1 tab PO QAM 09/21/18 05/05/19 History nitroglycerin 0.4 mg sublingual 0.4 mg SL Q5M PRN #1 tab 09/21/18 05/05/19 History tablet blood sugar diagnostic #100 ea 11/19/18 04/22/19 Rx blood-glucose meter #1 ea 11/19/18 04/22/19 Rx carvedilol 6.25 mg tablet 6.25 mg PO BID #180 tab 12/07/18 05/05/19 Rx mirtazapine 7.5 mg tablet 7.5 mg PO PM 02/22/19 05/05/19 History loperamide 2 mg tablet 2 mg PO Q4H PRN #14 tab 03/08/19 05/05/19 Rx insulin glargine 100 unit/mL (3 10 units SQ DAILY #15 ml 03/15/19 05/05/19 Rx mL) subcutaneous pen Wheelchair (Manual or Powered) #1 ea 03/25/19 04/22/19 Rx levothyroxine 50 mcg PO QAM 04/22/19 05/05/19 History lisinopril 20 mg tablet 10 mg PO BID tab 05/04/19 05/05/19 History pantoprazole 40 mg PO QAM 05/05/19 05/05/19 History psyllium husk [Metamucil] 1.04 g PO QAM 05/05/19 05/05/19 History Patient History Medical History (Updated 05/05/19 @ 16:04 by BIA Epperson) Acute anemia Acute kidney injury Acute kidney injury superimposed on CKD Anemia Anemia Basal cell carcinoma, face (Acute) Bilateral carotid artery stenosis (Acute) Brain lesion Cancer Cerebrovascular accident R sided weakness more likely due to swelling from brain tumors CHF (congestive heart failure), NYHA class II (Acute) Chronic nasal congestion (Acute) Coronary artery disease Diabetes Diastolic dysfunction (Acute) Dyslipidemia Heart disease HTN (hypertension) Hyperammonemia Hypervolemia Insomnia (Acute) Metabolic encephalopathy Peripheral arterial disease (Acute) Proteinuria (Chronic) Secondary hyperparathyroidism of renal origin (Chronic) Septic shock Thoracic aortic ectasia (Acute) Vitamin D deficiency (Chronic) Surgical History S/P triple vessel bypass Family History Mother Family history of cardiac disorder Father Diabetes Hypertension Other Cancer Heart disease Kidney disease Myocardial infarction Seizure Denies family history of Colon cancer Ovarian cancer Prostate cancer Breast cancer Social History Preferred Language: Tanzanian Communication Ability: Effective Communication Ability Comment: AMS 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) Vital Signs (Past 12 Hours) Vital Signs Temp Pulse Pulse Resp BP BP Pulse Ox 05/05/19 13:21 31.7 C L 59 L 20 97/53 L 100 05/05/19 12:36 31.7 C L 59 L 19 82/51 L 100 05/05/19 12:35 60 14 82/51 L 100 05/05/19 12:30 60 20 100 05/05/19 12:23 61 16 05/05/19 12:22 58 L 13 100 05/05/19 12:20 60 15 100 05/05/19 12:15 59 L 20 98/41 L 100 05/05/19 12:12 58 L 22 100 05/05/19 12:10 77 22 100 05/05/19 12:06 31.6 C L 58 L 15 70/32 L 100 05/05/19 12:05 31.6 C L 56 L 20 76/42 L 100 05/05/19 12:01 58 L 17 100 05/05/19 12:00 60 16 100 05/05/19 11:58 57 L 14 100 05/05/19 11:57 58 L 20 74/47 L 100 05/05/19 11:51 31.8 C L 59 L 15 82/39 L 100 05/05/19 11:50 58 L 18 100 05/05/19 11:46 60 12 91/50 L 100 05/05/19 11:40 60 16 100 05/05/19 11:35 62 15 73/44 L 100 05/05/19 11:31 31.1 C L 64 20 96/47 L 100 05/05/19 11:30 63 19 100 05/05/19 11:20 63 11 L 100 05/05/19 11:16 63 16 119/56 L 100 05/05/19 11:15 100 05/05/19 11:10 62 14 93/65 L 100 05/05/19 11:05 59 L 11 L 103/54 L 100 05/05/19 11:00 58 L 12 91/53 L 05/05/19 10:58 57 L 18 97/55 L 05/05/19 10:51 131/80 05/05/19 10:50 59 L 20 05/05/19 10:46 59 L 12 101/70 05/05/19 10:41 59 L 14 63/40 L 05/05/19 10:40 62 17 05/05/19 10:35 59 L 14 81/49 L 05/05/19 10:32 58 L 16 88/50 L 05/05/19 10:30 59 L 14 88/50 L 05/05/19 10:10 57 L 18 67/36 L 05/05/19 10:06 58 L 13 81/31 L 05/05/19 10:04 57 L 12 71/39 L 98 05/05/19 10:02 54 L 12 100 05/05/19 10:01 57 L 13 71/39 L 100 05/05/19 09:59 57 L 11 L 80/45 L 100 05/05/19 09:52 54 L 54 L 11 L 85/40 L 99 05/05/19 09:51 58 L 14 85/40 L 100 05/05/19 09:49 58 L 10 L 83/49 L 100 05/05/19 09:41 58 L 21 05/05/19 09:39 79 14 65/51 L 90 05/05/19 09:36 106 H 22 88/44 L 05/05/19 09:33 23 05/05/19 09:26 20 88/51 L (1) AMS (altered mental status) Altered mental status type: unspecified Qualified Code(s): R41.82 - Altered mental status, unspecified
[2019-05-05] MEDS: INSULIN ASPART 100 UNITS/ML 3 ML PEN SC SCH ×2 (16:02→20:46)
[2019-05-05 16:04] LABS: Mean Platelet Volume 9.8 fL (7.4-10.4); Platelet Count 59 K/uL (130-400)
--- NOTE | 2019-05-05 16:04 | Palliative Care Consultation ---
Date of Consultation May 05, 2019 Assessment & Plan (1) Goals of care, counseling/discussion: -68 year old male patient with PMH stage IV esophageal adenocarcinoma with metastasis to lung, brain, liver, evidence of retroperitoneal and intraabdominal adenopathy. Complications of ascites build up and anasarca requiring weekly paracentesis. He was on chemotherapy, last dose 04/26 with next planned dose 05/10. Patient presented with severe altered mental status and lethargy. He was severely hypotensive on arrival, nearly obtunded. Patient was started on pressors and admitted to the ICU. H/H 7.3/22.5 which dropped even further later in the day-- concern for GI bleed although no overt s/s bleeding. GI consulted. Creatinine 4.23 with minimal urine output. Ammonia 89-- given lactulose enema. ABGs revealed severe metabolic acidosis with ph 7.22, CO2 low, HCO3 8. CT abd/pelvis showed new pulmonary nodules concerning for mets or septic emboli. Patient in multi-system organ failure. His prognosis is extremely poor. Concern of whether or not patient would need intubated due to his severe lethargy and acidosis, however, discussion was had with family prior to this happening about his prognosis and goals of care. Palliative care is consulted to discuss with family. -Met with patient's family in patient's room along with BIA Rivera. Patient's Paulina, daughter, and son Kenney were present. -We discussed patient's multi-system organ failure: renal failure, large amount of ascites, hyperammonemia, severe hypotension 2/2 sepsis requiring pressors, hypothermia, altered mental status 2/2 metabolic encephalopathy, anemia related to possible GI bleed or chemo/cancer. -We were quite raiza with the patient's family that patient is critically ill and has an extremely poor prognosis at this point. We are giving supportive care such as IV abx, pressors, checking/monitoring blood work, lactulose enema, brett hugger to warm his body, etc. Aside from that, if care were to be escalated, he could possible need dialysis which he would be a poor candidate for (would need CRRT at another facility if anything at all), intubation and mechanical ventilation, and more pressors. -After discussion, patient's family has made decision to change patient to DNR/DNI. Continue supportive care as we are doing, and if patient continues to decompensate, likely transition to comfort measures. -Patient's family is appropriately tearful. They understand that we will not be pursuing any sort of GI scoping at this time as he has no overt signs of GI bleeding (no melena/hematochezia, no hematemesis). We will continue protonix as conservative management. -We will continue to follow along and provide support to family. -PPS 20%. (2) Septic shock: (3) Acute anemia: (4) Metabolic encephalopathy: (5) Hyperammonemia: (6) Protein malnutrition: (7) Esophageal cancer, stage IV: History of Present Illness Attending Physician: Shyla Powell DO History of Present Illness This 68 year old male patient with PMH stage IV esophageal adenocarcinoma with metastasis to lung, brain, liver, evidence of retroperitoneal and intraabdominal adenopathy. Complications of ascites build up and anasarca requiring weekly paracentesis. He was on chemotherapy, last dose 04/26 with next planned dose 05/10. Patient presented with severe altered mental status and lethargy. He was severely hypotensive on arrival, nearly obtunded. Patient was started on pressors and admitted to the ICU. H/H 7.3/22.5 which dropped even further later in the day-- concern for GI bleed although no overt s/s bleeding. GI consulted. Creatinine 4.23 with minimal urine output. Ammonia 89-- given lactulose enema. ABGs revealed severe metabolic acidosis with ph 7.22, CO2 low, HCO3 8. CT abd/pelvis showed new pulmonary nodules concerning for mets or septic emboli. Patient in multi-system organ failure. His prognosis is extremely poor. Concern of whether or not patient would need intubated due to his severe lethargy and acidosis, however, discussion was had with family prior to this happening about his prognosis and goals of care. Palliative care is consulted to discuss with family. Thank you kindly for this consult. Palliative care team will follow as needed. Allergies Allergy/AdvReac Type Severity Reaction Status Date / Time Penicillins Allergy Intermediate HIVES Verified 04/22/19 10:28 Home Medications Home Medications Medication Instructions Recorded Confirmed Type atorvastatin 40 mg PO QPM 05/17/18 05/05/19 History pen needle, diabetic [Pen Needle] #30 ea 05/19/18 04/22/19 Rx aspirin 81 mg chewable tablet 1 tab PO PM tab 09/21/18 05/05/19 History multivitamin,ox-[id number]-rxddcszh 1 tab PO QAM 09/21/18 05/05/19 History nitroglycerin 0.4 mg sublingual 0.4 mg SL Q5M PRN #1 tab 09/21/18 05/05/19 History tablet blood sugar diagnostic #100 ea 11/19/18 04/22/19 Rx blood-glucose meter #1 ea 11/19/18 04/22/19 Rx carvedilol 6.25 mg tablet 6.25 mg PO BID #180 tab 12/07/18 05/05/19 Rx mirtazapine 7.5 mg tablet 7.5 mg PO PM 02/22/19 05/05/19 History loperamide 2 mg tablet 2 mg PO Q4H PRN #14 tab 03/08/19 05/05/19 Rx insulin glargine 100 unit/mL (3 10 units SQ DAILY #15 ml 03/15/19 05/05/19 Rx mL) subcutaneous pen Wheelchair (Manual or Powered) #1 ea 03/25/19 04/22/19 Rx levothyroxine 50 mcg PO QAM 04/22/19 05/05/19 History lisinopril 20 mg tablet 10 mg PO BID tab 05/04/19 05/05/19 History pantoprazole 40 mg PO QAM 05/05/19 05/05/19 History psyllium husk [Metamucil] 1.04 g PO QAM 05/05/19 05/05/19 History Patient History Medical History (Updated 05/06/19 @ 09:57 by Selvin Browning) Acute anemia Acute kidney injury Acute kidney injury superimposed on CKD Anemia Anemia Basal cell carcinoma, face (Acute) Bilateral carotid artery stenosis (Acute) Brain lesion Cancer Cerebrovascular accident R sided weakness more likely due to swelling from brain tumors CHF (congestive heart failure), NYHA class II (Acute) Chronic nasal congestion (Acute) Coronary artery disease Diabetes Diastolic dysfunction (Acute) Dyslipidemia End of life care Heart disease HTN (hypertension) Hyperammonemia Hypervolemia Insomnia (Acute) Metabolic encephalopathy Peripheral arterial disease (Acute) Proteinuria (Chronic) Secondary hyperparathyroidism of renal origin (Chronic) Septic shock Thoracic aortic ectasia (Acute) Vitamin D deficiency (Chronic) Surgical History S/P triple vessel bypass Family History Mother Family history of cardiac disorder Father Diabetes Hypertension Other Cancer Heart disease Kidney disease Myocardial infarction Seizure Denies family history of Colon cancer Ovarian cancer Prostate cancer Breast cancer Social History Preferred Language: Hebrew Communication Ability: Effective 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 Beliefs That Will Affect Care: None marital status: Current Living Situation: Spouse current occupational status: retired Feels Safe at Home: Yes Smoking Status: Former smoker Cigarettes Per Day: smokeless tabacco use daily ; Second Hand Exposure: No ; Hx Alcohol Use: No Hx Substance Use: No Dental Care, Regularly: Yes Physical Activity Frequency: 3-4 Times per Week Review of Systems Review of Systems: Unobtainable due to cognitive status Physical Exam Constitutional: + ill appearing and + lethargic ENMT: external ear and nose normal, oropharynx normal Mouth: + dry oral mucous membranes Respiratory: normal respiratory effort, lungs clear to auscultation Cardiovascular: Rate/Rhythm: regular rate and regular rhythm Gastrointestinal (Abdomen): Inspection/Auscultation: + abdomen distended and normal bowel sounds Neurologic: moves all extremities; + not awake (lethargic) Results & Data Vital Signs (Past 12 Hours) Vital Signs Temp Pulse Pulse Resp BP BP Pulse Ox 05/05/19 15:56 32.7 C L 05/05/19 13:21 31.7 C L 59 L 20 97/53 L 100 05/05/19 12:36 31.7 C L 59 L 19 82/51 L 100 05/05/19 12:35 60 14 82/51 L 100 05/05/19 12:30 60 20 100 05/05/19 12:23 61 16 05/05/19 12:22 58 L 13 100 05/05/19 12:20 60 15 100 05/05/19 12:15 59 L 20 98/41 L 100 05/05/19 12:12 58 L 22 100 05/05/19 12:10 77 22 100 05/05/19 12:06 31.6 C L 58 L 15 70/32 L 100 05/05/19 12:05 31.6 C L 56 L 20 76/42 L 100 05/05/19 12:01 58 L 17 100 05/05/19 12:00 60 16 100 05/05/19 11:58 57 L 14 100 05/05/19 11:57 58 L 20 74/47 L 100 05/05/19 11:51 31.8 C L 59 L 15 82/39 L 100 05/05/19 11:50 58 L 18 100 05/05/19 11:46 60 12 91/50 L 100 05/05/19 11:40 60 16 100 05/05/19 11:35 62 15 73/44 L 100 05/05/19 11:31 31.1 C L 64 20 96/47 L 100 05/05/19 11:30 63 19 100 05/05/19 11:20 63 11 L 100 05/05/19 11:16 63 16 119/56 L 100 05/05/19 11:15 100 05/05/19 11:10 62 14 93/65 L 100 05/05/19 11:05 59 L 11 L 103/54 L 100 05/05/19 11:00 58 L 12 91/53 L 05/05/19 10:58 57 L 18 97/55 L 05/05/19 10:51 131/80 05/05/19 10:50 59 L 20 05/05/19 10:46 59 L 12 101/70 05/05/19 10:41 59 L 14 63/40 L 05/05/19 10:40 62 17 05/05/19 10:35 59 L 14 81/49 L 05/05/19 10:32 58 L 16 88/50 L 05/05/19 10:30 59 L 14 88/50 L 05/05/19 10:10 57 L 18 67/36 L 05/05/19 10:06 58 L 13 81/31 L 05/05/19 10:04 57 L 12 71/39 L 98 05/05/19 10:02 54 L 12 100 05/05/19 10:01 57 L 13 71/39 L 100 05/05/19 09:59 57 L 11 L 80/45 L 100 05/05/19 09:52 54 L 54 L 11 L 85/40 L 99 05/05/19 09:51 58 L 14 85/40 L 100 05/05/19 09:49 58 L 10 L 83/49 L 100 05/05/19 09:41 58 L 21 05/05/19 09:39 79 14 65/51 L 90 05/05/19 09:36 106 H 22 88/44 L 05/05/19 09:33 23 05/05/19 09:26 20 88/51 L Coding Level of Care Code 84391 Inpt Consult Level 3 Diagnoses Goals of care, counseling/discussion Z71.89 Septic shock A41.9; R65.21 Acute anemia D64.9 Metabolic encephalopathy G93.41 Hyperammonemia E72.20 Protein malnutrition E46 Esophageal cancer, stage IV C15.9 Time Spent (min) 70 Time Spent Midlevel 70 minutes with >50% of the time spent at bedside with patient and family discussing condition and GOC.
[2019-05-05 16:06] LABS: Albumin Peritoneal Fluid 0.7 g/dl; Total Protein Peritoneal Fluid 2.2 g/dl
[2019-05-05] MEDS: ALBUMIN 5% 250 ML IV SCH ×4 (16:06→20:43)
[2019-05-05 16:37] LABS: Appearance Peritoneal Fluid CLEAR; Basophils, Fluid 0 %; Color Peritoneal Fluid STRAW; Eosinophils, Fluid 0 %; Lymphocytes, Fluid 74 %; Mono,Macrophage,Mesothelial 6 %; Neutrophils, Fluid 20 %; RBC Peritoneal Fluid (A) < 3000 /uL; WBC Peritoneal Fluid (A) 600 /ul (0-300)
[2019-05-05 16:41] LABS: Fibrinogen 541 mg/dl (184-400)
--- NOTE | 2019-05-05 16:41 | Electrocardiogram Report ---
Test Reason : Blood Pressure : / mmHG Vent. Rate : 059 BPM Atrial Rate : 054 BPM P-R Int : 000 ms QRS Dur : 108 ms QT Int : 506 ms P-R-T Axes : 000 054 097 degrees QTc Int : 500 ms Poor data quality, interpretation may be adversely affected Sinus rhythm Low voltage QRS Nonspecific ST and T wave abnormality Abnormal ECG When compared with ECG of 19-MAY-2018 06:08, QRS voltage has decreased Confirmed by Dheeraj Paige ([id number]) on 05/05/2019 4:40:46 PM Referred By: Confirmed By:Dheeraj Paige
--- NOTE | 2019-05-05 17:52 | Nephrology Consultation ---
Date of Consultation May 05, 2019 Assessment & Plan (1) Acute kidney injury superimposed on CKD: -- JOSE likely due to ATN from sepsis/hypotension. Agree that HRS remains within differential -- Agree w/ pressor support to maintain MAP 65 or above -- Agree w/ providing colloid -- Await spot urine Na -- Electrolyte balance is acceptable. No evidence of CHF. No acute indication for HD at this time (2) Septic shock: -- Pressor support as above -- On empiric Vanco/Cefepime and Flagyl -- Potential infectious sources include peritonitis, a-port, UTI. Await culture results (3) Anemia: -- Transfused one unit PRBC upon admission -- Probable GI blood loss. Gastroenterology has been consulted. Patient is on PPI and Octreotide gtt (4) Metastatic cancer: -- Had been on palliative chemotherapy up until 04/27/19. Now w/ sepsis, probable GIB and JOSE. Overall poor prognosis. Palliative care has met with family. He is now DNR/DNI status. History of Present Illness Reason for Consultation: JOSE/CKD Attending Physician: Shyla Powell DO History of Present Illness Mr. Milner is a 68 year old white male who is seen at the request of Dr. Chaudhry for evaluation of JOSE/CKD. Medical records in the EMR were reviewed today and are summarized as follows: Mr. Milner has stage III CKD w/ baseline Cr 1.5 (EGFR 45 cc/min) due to microvascular disease. His network security engineer is Dr. Ryan. Mr. Milner's medical history is also significant for HTN managed w/ Lisinopril therapy, ASCVD and esophageal CA w/ metastasis to the liver and brain. He has been on palliative chemotherapy and undergoes weekly paracentesis due to recurrent abdominal ascites. Mrs. Milner indicates that recently her was placed on Furosemide to help manage his ascites. He continued w/ weekly 4 L paracentesis. Recently he was seen by his Oncologist. Chemotherapy was held due to SBP 80's and Cr 2.1. Today Mr. Milner was noted to be poorly responsive. He was brought to the ED where he was found to be hypothermic, anemic, thrombocytopenic, SBP 70's and progressive JOSE w/ BUN 132, Cr 3.87, HCO3 9. Mr. Milner was placed on Levophed and Vasopressin gtt. NaHCO3 infusion was started. Diagnostic paracentesis performed. Empiric Cefepime administered and 1 unit PRBC provided. Allergies Allergy/AdvReac Type Severity Reaction Status Date / Time Penicillins Allergy Intermediate HIVES Verified 04/22/19 10:28 Home Medications Home Medications Medication Instructions Recorded Confirmed Type atorvastatin 40 mg PO QPM 05/17/18 05/05/19 History pen needle, diabetic [Pen Needle] #30 ea 05/19/18 04/22/19 Rx aspirin 81 mg chewable tablet 1 tab PO PM tab 09/21/18 05/05/19 History multivitamin,ah-vqmd-pstutzja 1 tab PO QAM 09/21/18 05/05/19 History nitroglycerin 0.4 mg sublingual 0.4 mg SL Q5M PRN #1 tab 09/21/18 05/05/19 History tablet blood sugar diagnostic #100 ea 11/19/18 04/22/19 Rx blood-glucose meter #1 ea 11/19/18 04/22/19 Rx carvedilol 6.25 mg tablet 6.25 mg PO BID #180 tab 12/07/18 05/05/19 Rx mirtazapine 7.5 mg tablet 7.5 mg PO PM 02/22/19 05/05/19 History loperamide 2 mg tablet 2 mg PO Q4H PRN #14 tab 03/08/19 05/05/19 Rx insulin glargine 100 unit/mL (3 10 units SQ DAILY #15 ml 03/15/19 05/05/19 Rx mL) subcutaneous pen Wheelchair (Manual or Powered) #1 ea 03/25/19 04/22/19 Rx levothyroxine 50 mcg PO QAM 04/22/19 05/05/19 History lisinopril 20 mg tablet 10 mg PO BID tab 05/04/19 05/05/19 History pantoprazole 40 mg PO QAM 05/05/19 05/05/19 History psyllium husk [Metamucil] 1.04 g PO QAM 05/05/19 05/05/19 History Patient History Medical History (Updated 05/05/19 @ 16:04 by BIA Epperson) Acute anemia Acute kidney injury Acute kidney injury superimposed on CKD Anemia Anemia Basal cell carcinoma, face (Acute) Bilateral carotid artery stenosis (Acute) Brain lesion Cancer Cerebrovascular accident R sided weakness more likely due to swelling from brain tumors CHF (congestive heart failure), NYHA class II (Acute) Chronic nasal congestion (Acute) Coronary artery disease Diabetes Diastolic dysfunction (Acute) Dyslipidemia Heart disease HTN (hypertension) Hyperammonemia Hypervolemia Insomnia (Acute) Metabolic encephalopathy Peripheral arterial disease (Acute) Proteinuria (Chronic) Secondary hyperparathyroidism of renal origin (Chronic) Septic shock Thoracic aortic ectasia (Acute) Vitamin D deficiency (Chronic) Surgical History S/P triple vessel bypass Family History Mother Family history of cardiac disorder Father Diabetes Hypertension Other Cancer Heart disease Kidney disease Myocardial infarction Seizure Denies family history of Colon cancer Ovarian cancer Prostate cancer Breast cancer Social History Preferred Language: Cuban Communication Ability: Effective Communication Ability Comment: AMS Drug Safety Data Management Specialist Required: No Beliefs That Will Affect Care: None marital status: Current Living Situation: Spouse current occupational status: retired Other Information That Helps Us Care for You: No Feels Safe at Home: Yes Safety Concerns: Feels Safe At This Time Smoking Status: Former smoker Cigarettes Per Day: smokeless tabacco use daily ; Second Hand Exposure: No ; Hx Alcohol Use: No Hx Substance Use: No Dental Care, Regularly: Yes Physical Activity Frequency: 3-4 Times per Week Review of Systems Review of Systems: Unobtainable due to cognitive status Physical Exam Constitutional: + ill appearing Eyes: PERRL ENMT: Mouth: + dry oral mucous membranes Neck: trachea midline, no thyromegaly Respiratory: normal respiratory effort, lungs clear to auscultation Cardiovascular: RRR, no murmur, no edema R subclavian a-port Gastrointestinal (Abdomen): Inspection/Auscultation: + abdomen distended and + hypoactive bowel sounds Skin: no rashes, warm and dry Neurologic: Lethargic. Opens eyes to voice. Does not follow commands Results & Data Vital Signs (Past 12 Hours) Vital Signs Temp Pulse Pulse Resp BP BP Pulse Ox 05/05/19 15:56 32.7 C L 05/05/19 13:21 31.7 C L 59 L 20 97/53 L 100 05/05/19 12:36 31.7 C L 59 L 19 82/51 L 100 05/05/19 12:35 60 14 82/51 L 100 05/05/19 12:30 60 20 100 05/05/19 12:23 61 16 05/05/19 12:22 58 L 13 100 05/05/19 12:20 60 15 100 05/05/19 12:15 59 L 20 98/41 L 100 05/05/19 12:12 58 L 22 100 05/05/19 12:10 77 22 100 05/05/19 12:06 31.6 C L 58 L 15 70/32 L 100 05/05/19 12:05 31.6 C L 56 L 20 76/42 L 100 05/05/19 12:01 58 L 17 100 05/05/19 12:00 60 16 100 05/05/19 11:58 57 L 14 100 05/05/19 11:57 58 L 20 74/47 L 100 05/05/19 11:51 31.8 C L 59 L 15 82/39 L 100 05/05/19 11:50 58 L 18 100 05/05/19 11:46 60 12 91/50 L 100 05/05/19 11:40 60 16 100 05/05/19 11:35 62 15 73/44 L 100 05/05/19 11:31 31.1 C L 64 20 96/47 L 100 05/05/19 11:30 63 19 100 05/05/19 11:20 63 11 L 100 05/05/19 11:16 63 16 119/56 L 100 05/05/19 11:15 100 05/05/19 11:10 62 14 93/65 L 100 05/05/19 11:05 59 L 11 L 103/54 L 100 05/05/19 11:00 58 L 12 91/53 L 05/05/19 10:58 57 L 18 97/55 L 05/05/19 10:51 131/80 05/05/19 10:50 59 L 20 05/05/19 10:46 59 L 12 101/70 05/05/19 10:41 59 L 14 63/40 L 05/05/19 10:40 62 17 05/05/19 10:35 59 L 14 81/49 L 05/05/19 10:32 58 L 16 88/50 L 03/11/20 10:30 59 L 14 88/50 L 05/05/19 10:10 57 L 18 67/36 L 05/05/19 10:06 58 L 13 81/31 L 05/05/19 10:04 57 L 12 71/39 L 98 05/05/19 10:02 54 L 12 100 05/05/19 10:01 57 L 13 71/39 L 100 05/05/19 09:59 57 L 11 L 80/45 L 100 05/05/19 09:52 54 L 54 L 11 L 85/40 L 99 05/05/19 09:51 58 L 14 85/40 L 100 05/05/19 09:49 58 L 10 L 83/49 L 100 05/05/19 09:41 58 L 21 05/05/19 09:39 79 14 65/51 L 90 05/05/19 09:36 106 H 22 88/44 L 05/05/19 09:33 23 05/05/19 09:26 20 88/51 L Laboratory Results Laboratory Results - last 24 hr 05/05/19 05/05/19 05/05/19 09:30 09:30 09:30 WBC RBC Hgb POC Hgb Hct POC Hct MCV MCH MCHC RDW Std Deviation RDW Coeff of Jeannette Plt Count MPV Immature Gran % (Auto) Neut % (Auto) Lymph % (Auto) [place] % (Auto) Eos % (Auto) Baso % (Auto) Immature Gran # (Auto) Neut # (Auto) Lymph # (Auto) [place] # (Auto) Eos # (Auto) Baso # (Auto) Absolute Nucleated RBC Nucleated RBC % (auto) Hyposegmented Neuts Peripher Smr Path Cons Haptoglobin PT 15.6 H INR 1.5 H Fibrinogen Sample Site POC pH POC pCO2 POC pO2 POC HCO3 POC Total CO2 POC Base Excess ABG pH (Temp Correct) ABG pCO2 (Temp Corrct POC ABG pO2 at Pt Temp Rj Test VBG pH VBG pCO2 VBG pO2 VBG HCO3 VBG O2 Saturation VBG Base Excess Barometric Pressure O2 Delivery Device POC Sodium Sodium 138 POC Potassium Potassium 4.2 Chloride 114 H Carbon Dioxide 10 L Anion Gap 14.0 H BUN 137 H Creatinine 4.23 H Est Cr Clr Drug Dosing 16.2 Est GFR ( Amer) 15.4 Est GFR (Non-Af Amer) 13.3 BUN/Creatinine Ratio 32.4 H Glucose 93 Lactate 1.3 Calcium 8.1 L Magnesium 1.3 L Total Bilirubin 0.5 AST 30 ALT 18 Alkaline Phosphatase 156 H Ammonia Lactate Dehydrogenase Troponin I < 0.015 Total Protein 6.1 L Albumin 1.4 L Globulin 4.7 H Albumin/Globulin Ratio 0.3 L Procalcitonin TSH 5.710 H Free T4 1.16 Urine Color Urine Appearance Urine pH Ur Specific Lynn Urine Protein Urine Glucose (UA) Urine Ketones Urine Blood Urine Nitrite Urine Bilirubin Urine Urobilinogen Ur Leukocyte Esterase Urine WBC (Auto) Urine RBC (Auto) U Hyaline Cast (Auto) U Epithel Cells (Auto) Urine Bacteria (Auto) Ur Renal Epithelial Cell Urine Yeast Ur Random Sodium Fluid Neutrophils % Fluid Lymphocytes % Fluid Eosinophils % Fluid Basophils % Fluid Meso/Macro/[place] % Peritoneal Color Peritoneal Appearance Peritoneal WBC Peritoneal RBC Peritoneal Tot Protein Peritoneal Albumin Nasal Screen MRSA (PCR) Blood Type Antibody Screen Crossmatch 05/05/19 05/05/19 05/05/19 09:30 09:58 09:58 WBC 3.69 L RBC 2.48 L Hgb 7.3 L POC Hgb Hct 22.5 L POC Hct MCV 90.7 MCH 29.4 MCHC 32.4 RDW Std Deviation 59.4 H RDW Coeff of Jeannette 18.2 H Plt Count 67 L MPV 11.0 H Immature Gran % (Auto) 0.3 Neut % (Auto) 69.4 Lymph % (Auto) 24.7 [place] % (Auto) 5.1 Eos % (Auto) 0.5 Baso % (Auto) 0.0 Immature Gran # (Auto) 0.01 Neut # (Auto) 2.56 Lymph # (Auto) 0.91 L [place] # (Auto) 0.19 Eos # (Auto) 0.02 Baso # (Auto) 0.00 Absolute Nucleated RBC Nucleated RBC % (auto) Hyposegmented Neuts 1+ Peripher Smr Path Cons Haptoglobin PT INR Fibrinogen Sample Site POC pH POC pCO2 POC pO2 POC HCO3 POC Total CO2 POC Base Excess ABG pH (Temp Correct) ABG pCO2 (Temp Corrct POC ABG pO2 at Pt Temp Rj Test VBG pH 7.02 L VBG pCO2 23 L VBG pO2 54 VBG HCO3 6 VBG O2 Saturation TNP VBG Base Excess -23.2 Barometric Pressure 735.2 O2 Delivery Device POC Sodium Sodium POC Potassium Potassium Chloride Carbon Dioxide Anion Gap BUN Creatinine Est Cr Clr Drug Dosing Est GFR ( Amer) Est GFR (Non-Af Amer) BUN/Creatinine Ratio Glucose Lactate Calcium Magnesium Total Bilirubin AST ALT Alkaline Phosphatase Ammonia Lactate Dehydrogenase Troponin I Total Protein Albumin Globulin Albumin/Globulin Ratio Procalcitonin TSH Free T4 Urine Color Urine Appearance Urine pH Ur Specific Lynn Urine Protein Urine Glucose (UA) Urine Ketones Urine Blood Urine Nitrite Urine Bilirubin Urine Urobilinogen Ur Leukocyte Esterase Urine WBC (Auto) Urine RBC (Auto) U Hyaline Cast (Auto) U Epithel Cells (Auto) Urine Bacteria (Auto) Ur Renal Epithelial Cell Urine Yeast Ur Random Sodium Fluid Neutrophils % Fluid Lymphocytes % Fluid Eosinophils % Fluid Basophils % Fluid Meso/Macro/[place] % Peritoneal Color Peritoneal Appearance Peritoneal WBC Peritoneal RBC Peritoneal Tot Protein Peritoneal Albumin Nasal Screen MRSA (PCR) Blood Type O Positive Antibody Screen NEGATIVE Crossmatch See Detail 05/05/19 05/05/19 05/05/19 10:59 11:13 13:16 WBC RBC Hgb POC Hgb Hct POC Hct MCV MCH MCHC RDW Std Deviation RDW Coeff of Jeannette Plt Count MPV Immature Gran % (Auto) Neut % (Auto) Lymph % (Auto) [place] % (Auto) Eos % (Auto) Baso % (Auto) Immature Gran # (Auto) Neut # (Auto) Lymph # (Auto) [place] # (Auto) Eos # (Auto) Baso # (Auto) Absolute Nucleated RBC Nucleated RBC % (auto) Hyposegmented Neuts Peripher Smr Path Cons Haptoglobin PT INR Fibrinogen Sample Site POC pH POC pCO2 POC pO2 POC HCO3 POC Total CO2 POC Base Excess ABG pH (Temp Correct) ABG pCO2 (Temp Corrct POC ABG pO2 at Pt Temp Rj Test VBG pH VBG pCO2 VBG pO2 VBG HCO3 VBG O2 Saturation VBG Base Excess Barometric Pressure O2 Delivery Device POC Sodium Sodium POC Potassium Potassium Chloride Carbon Dioxide Anion Gap BUN Creatinine Est Cr Clr Drug Dosing Est GFR ( Amer) Est GFR (Non-Af Amer) BUN/Creatinine Ratio Glucose Lactate Calcium Magnesium Total Bilirubin AST ALT Alkaline Phosphatase Ammonia 89.0 H Lactate Dehydrogenase Troponin I < 0.015 Total Protein Albumin Globulin Albumin/Globulin Ratio Procalcitonin TSH Free T4 Urine Color Dark Yellow Urine Appearance Turbid A Urine pH 5.0 Ur Specific Lynn 1.027 Urine Protein 2+ H Urine Glucose (UA) Negative Urine Ketones Trace H Urine Blood Negative Urine Nitrite Negative Urine Bilirubin Negative Urine Urobilinogen Negative Ur Leukocyte Esterase 1+ H Urine WBC (Auto) >30 H Urine RBC (Auto) 10-30 H U Hyaline Cast (Auto) >30 H U Epithel Cells (Auto) >30 H Urine Bacteria (Auto) Negative Ur Renal Epithelial Cell Not Reportable Urine Yeast Not Reportable Ur Random Sodium Fluid Neutrophils % Fluid Lymphocytes % Fluid Eosinophils % Fluid Basophils % Fluid Meso/Macro/[place] % Peritoneal Color Peritoneal Appearance Peritoneal WBC Peritoneal RBC Peritoneal Tot Protein Peritoneal Albumin Nasal Screen MRSA (PCR) Blood Type Antibody Screen Crossmatch 05/05/19 05/05/19 05/05/19 13:45 14:15 14:16 WBC 5.33 RBC 2.58 L Hgb 7.8 L POC Hgb Hct 23.3 L POC Hct MCV 90.3 MCH 30.2 MCHC 33.5 RDW Std Deviation 58.2 H RDW Coeff of Jeannette 17.7 H Plt Count 71 L MPV 11.2 H Immature Gran % (Auto) 0.4 Neut % (Auto) 74.3 Lymph % (Auto) 19.5 [place] % (Auto) 5.6 Eos % (Auto) 0.2 Baso % (Auto) 0.0 Immature Gran # (Auto) 0.02 Neut # (Auto) 3.96 Lymph # (Auto) 1.04 L [place] # (Auto) 0.30 Eos # (Auto) 0.01 Baso # (Auto) 0.00 Absolute Nucleated RBC 0.02 H Nucleated RBC % (auto) 0.3 Hyposegmented Neuts Peripher Smr Path Cons Haptoglobin PT INR Fibrinogen Sample Site POC pH POC pCO2 POC pO2 POC HCO3 POC Total CO2 POC Base Excess ABG pH (Temp Correct) ABG pCO2 (Temp Corrct POC ABG pO2 at Pt Temp Rj Test VBG pH VBG pCO2 VBG pO2 VBG HCO3 VBG O2 Saturation VBG Base Excess Barometric Pressure O2 Delivery Device POC Sodium Sodium 138 POC Potassium Potassium 4.0 Chloride 116 H Carbon Dioxide 9 L* Anion Gap 13.0 H BUN 132 H Creatinine 3.87 H D Est Cr Clr Drug Dosing 17.8 Est GFR ( Amer) 17.1 Est GFR (Non-Af Amer) 14.8 BUN/Creatinine Ratio 34.0 H Glucose 136 H Lactate Calcium 7.4 L Magnesium Total Bilirubin AST ALT Alkaline Phosphatase Ammonia Lactate Dehydrogenase Troponin I Total Protein Albumin Globulin Albumin/Globulin Ratio Procalcitonin TSH Free T4 Urine Color Urine Appearance Urine pH Ur Specific Lynn Urine Protein Urine Glucose (UA) Urine Ketones Urine Blood Urine Nitrite Urine Bilirubin Urine Urobilinogen Ur Leukocyte Esterase Urine WBC (Auto) Urine RBC (Auto) U Hyaline Cast (Auto) U Epithel Cells (Auto) Urine Bacteria (Auto) Ur Renal Epithelial Cell Urine Yeast Ur Random Sodium Fluid Neutrophils % Fluid Lymphocytes % Fluid Eosinophils % Fluid Basophils % Fluid Meso/Macro/[place] % Peritoneal Color Peritoneal Appearance Peritoneal WBC Peritoneal RBC Peritoneal Tot Protein Peritoneal Albumin Nasal Screen MRSA (PCR) Positive A Blood Type Antibody Screen Crossmatch 05/05/19 05/05/19 05/05/19 14:16 14:30 14:30 WBC RBC Hgb POC Hgb Hct POC Hct MCV MCH MCHC RDW Std Deviation RDW Coeff of Jeannette Plt Count MPV Immature Gran % (Auto) Neut % (Auto) Lymph % (Auto) [place] % (Auto) Eos % (Auto) Baso % (Auto) Immature Gran # (Auto) Neut # (Auto) Lymph # (Auto) [place] # (Auto) Eos # (Auto) Baso # (Auto) Absolute Nucleated RBC Nucleated RBC % (auto) Hyposegmented Neuts Peripher Smr Path Cons Haptoglobin PT INR Fibrinogen Sample Site POC pH POC pCO2 POC pO2 POC HCO3 POC Total CO2 POC Base Excess ABG pH (Temp Correct) ABG pCO2 (Temp Corrct POC ABG pO2 at Pt Temp Rj Test VBG pH VBG pCO2 VBG pO2 VBG HCO3 VBG O2 Saturation VBG Base Excess Barometric Pressure O2 Delivery Device POC Sodium Sodium POC Potassium Potassium Chloride Carbon Dioxide Anion Gap BUN Creatinine Est Cr Clr Drug Dosing Est GFR ( Amer) Est GFR (Non-Af Amer) BUN/Creatinine Ratio Glucose Lactate 0.8 Calcium Magnesium Total Bilirubin AST ALT Alkaline Phosphatase Ammonia Lactate Dehydrogenase Troponin I Total Protein Albumin Globulin Albumin/Globulin Ratio Procalcitonin TSH Free T4 Urine Color Urine Appearance Urine pH Ur Specific Lynn Urine Protein Urine Glucose (UA) Urine Ketones Urine Blood Urine Nitrite Urine Bilirubin Urine Urobilinogen Ur Leukocyte Esterase Urine WBC (Auto) Urine RBC (Auto) U Hyaline Cast (Auto) U Epithel Cells (Auto) Urine Bacteria (Auto) Ur Renal Epithelial Cell Urine Yeast Ur Random Sodium Fluid Neutrophils % 20 Fluid Lymphocytes % 74 Fluid Eosinophils % 0 Fluid Basophils % 0 Fluid Meso/Macro/[place] % 6 Peritoneal Color STRAW Peritoneal Appearance CLEAR Peritoneal WBC 600 H Peritoneal RBC < 3000 Peritoneal Tot Protein 2.2 Peritoneal Albumin 0.7 Nasal Screen MRSA (PCR) Blood Type Antibody Screen Crossmatch 05/05/19 05/05/19 05/05/19 14:37 15:46 15:46 WBC 4.25 L RBC 2.56 L Hgb 7.8 L POC Hgb 12.2 L Hct 23.2 L POC Hct 36 L MCV 90.6 MCH 30.5 MCHC 33.6 RDW Std Deviation 57.9 H RDW Coeff of Jeannette 17.6 H Plt Count 59 L MPV 9.8 Immature Gran % (Auto) Neut % (Auto) Lymph % (Auto) [place] % (Auto) Eos % (Auto) Baso % (Auto) Immature Gran # (Auto) Neut # (Auto) Lymph # (Auto) [place] # (Auto) Eos # (Auto) Baso # (Auto) Absolute Nucleated RBC Nucleated RBC % (auto) Hyposegmented Neuts Peripher Smr Path Cons Pending Haptoglobin PT INR Fibrinogen 541 H Sample Site R Radial POC pH 7.22 L POC pCO2 19 L POC pO2 154 H POC HCO3 8 L POC Total CO2 8 L* POC Base Excess -20.0 L ABG pH (Temp Correct) 7.224 L ABG pCO2 (Temp Corrct 19 L POC ABG pO2 at Pt Temp 153 Rj Test Pass VBG pH VBG pCO2 VBG pO2 VBG HCO3 VBG O2 Saturation VBG Base Excess Barometric Pressure O2 Delivery Device Cannula POC Sodium 136 Sodium POC Potassium 3.9 Potassium Chloride Carbon Dioxide Anion Gap BUN Creatinine Est Cr Clr Drug Dosing Est GFR ( Amer) Est GFR (Non-Af Amer) BUN/Creatinine Ratio Glucose Lactate Calcium Magnesium Total Bilirubin AST ALT Alkaline Phosphatase Ammonia Lactate Dehydrogenase Troponin I Total Protein Albumin Globulin Albumin/Globulin Ratio Procalcitonin TSH Free T4 Urine Color Urine Appearance Urine pH Ur Specific Lynn Urine Protein Urine Glucose (UA) Urine Ketones Urine Blood Urine Nitrite Urine Bilirubin Urine Urobilinogen Ur Leukocyte Esterase Urine WBC (Auto) Urine RBC (Auto) U Hyaline Cast (Auto) U Epithel Cells (Auto) Urine Bacteria (Auto) Ur Renal Epithelial Cell Urine Yeast Ur Random Sodium Fluid Neutrophils % Fluid Lymphocytes % Fluid Eosinophils % Fluid Basophils % Fluid Meso/Macro/[place] % Peritoneal Color Peritoneal Appearance Peritoneal WBC Peritoneal RBC Peritoneal Tot Protein Peritoneal Albumin Nasal Screen MRSA (PCR) Blood Type Antibody Screen Crossmatch 05/05/19 05/05/19 05/05/19 15:46 15:46 15:46 WBC RBC Hgb POC Hgb Hct POC Hct MCV MCH MCHC RDW Std Deviation RDW Coeff of Jeannette Plt Count MPV Immature Gran % (Auto) Neut % (Auto) Lymph % (Auto) [place] % (Auto) Eos % (Auto) Baso % (Auto) Immature Gran # (Auto) Neut # (Auto) Lymph # (Auto) [place] # (Auto) Eos # (Auto) Baso # (Auto) Absolute Nucleated RBC Nucleated RBC % (auto) Hyposegmented Neuts Peripher Smr Path Cons Haptoglobin Pending PT INR Fibrinogen Sample Site POC pH POC pCO2 POC pO2 POC HCO3 POC Total CO2 POC Base Excess ABG pH (Temp Correct) ABG pCO2 (Temp Corrct POC ABG pO2 at Pt Temp Rj Test VBG pH VBG pCO2 VBG pO2 VBG HCO3 VBG O2 Saturation VBG Base Excess Barometric Pressure O2 Delivery Device POC Sodium Sodium POC Potassium Potassium Chloride Carbon Dioxide Anion Gap BUN Creatinine Est Cr Clr Drug Dosing Est GFR ( Amer) Est GFR (Non-Af Amer) BUN/Creatinine Ratio Glucose Lactate Calcium Magnesium Total Bilirubin AST ALT Alkaline Phosphatase Ammonia Lactate Dehydrogenase 146 Troponin I Total Protein Albumin Globulin Albumin/Globulin Ratio Procalcitonin 0.86 H TSH Free T4 Urine Color Urine Appearance Urine pH Ur Specific Lynn Urine Protein Urine Glucose (UA) Urine Ketones Urine Blood Urine Nitrite Urine Bilirubin Urine Urobilinogen Ur Leukocyte Esterase Urine WBC (Auto) Urine RBC (Auto) U Hyaline Cast (Auto) U Epithel Cells (Auto) Urine Bacteria (Auto) Ur Renal Epithelial Cell Urine Yeast Ur Random Sodium Fluid Neutrophils % Fluid Lymphocytes % Fluid Eosinophils % Fluid Basophils % Fluid Meso/Macro/[place] % Peritoneal Color Peritoneal Appearance Peritoneal WBC Peritoneal RBC Peritoneal Tot Protein Peritoneal Albumin Nasal Screen MRSA (PCR) Blood Type Antibody Screen Crossmatch 05/05/19 16:14 WBC RBC Hgb POC Hgb Hct POC Hct MCV MCH MCHC RDW Std Deviation RDW Coeff of Jeannette Plt Count MPV Immature Gran % (Auto) Neut % (Auto) Lymph % (Auto) [place] % (Auto) Eos % (Auto) Baso % (Auto) Immature Gran # (Auto) Neut # (Auto) Lymph # (Auto) [place] # (Auto) Eos # (Auto) Baso # (Auto) Absolute Nucleated RBC Nucleated RBC % (auto) Hyposegmented Neuts Peripher Smr Path Cons Haptoglobin PT INR Fibrinogen Sample Site POC pH POC pCO2 POC pO2 POC HCO3 POC Total CO2 POC Base Excess ABG pH (Temp Correct) ABG pCO2 (Temp Corrct POC ABG pO2 at Pt Temp Rj Test VBG pH VBG pCO2 VBG pO2 VBG HCO3 VBG O2 Saturation VBG Base Excess Barometric Pressure O2 Delivery Device POC Sodium Sodium POC Potassium Potassium Chloride Carbon Dioxide Anion Gap BUN Creatinine Est Cr Clr Drug Dosing Est GFR ( Amer) Est GFR (Non-Af Amer) BUN/Creatinine Ratio Glucose Lactate Calcium Magnesium Total Bilirubin AST ALT Alkaline Phosphatase Ammonia Lactate Dehydrogenase Troponin I Total Protein Albumin Globulin Albumin/Globulin Ratio Procalcitonin TSH Free T4 Urine Color Urine Appearance Urine pH Ur Specific Lynn Urine Protein Urine Glucose (UA) Urine Ketones Urine Blood Urine Nitrite Urine Bilirubin Urine Urobilinogen Ur Leukocyte Esterase Urine WBC (Auto) Urine RBC (Auto) U Hyaline Cast (Auto) U Epithel Cells (Auto) Urine Bacteria (Auto) Ur Renal Epithelial Cell Urine Yeast Ur Random Sodium Pending Fluid Neutrophils % Fluid Lymphocytes % Fluid Eosinophils % Fluid Basophils % Fluid Meso/Macro/[place] % Peritoneal Color Peritoneal Appearance Peritoneal WBC Peritoneal RBC Peritoneal Tot Protein Peritoneal Albumin Nasal Screen MRSA (PCR) Blood Type Antibody Screen Crossmatch CXR: CMG. No infiltrate. Minimal pulmonary edema ABD CT: Kidneys w/ cortical atrophy. No hydronephrosis. Complex cyst involving L kidney. Possible thickening of L colon. Clinical correlation advised PG Care Time/CCT Total # of Minutes Spent Total Time Spent with Patient: Total time spent is greater than 50% in coordination of care (as documented) at patient's floor/unit and/or counseling patient: Coding Level of Care Code 54295 Inpt Consult Level 5 Diagnoses Acute kidney injury superimposed on CKD N17.9; N18.9 Septic shock A41.9; R65.21 Anemia D64.9 Metastatic cancer C79.9
[2019-05-05] MEDS ORDERED: FUROSEMIDE 60 MG in SYRINGE 0 ML IV ONE (18:50)
[2019-05-05 20:06] LABS: Hematocrit (blood only) 20.7 % (42-52); Hemoglobin 6.9 g/dL (14.0-18.0); Mean Corpuscular Hemoglobin 29.7 pg (25-34); Mean Corpuscular Hgb Conc 33.3 g/dL (32-36); Mean Corpuscular Volume 89.2 fL (80-100); Mean Platelet Volume 11.1 fL (7.4-10.4); Platelet Count 50 K/uL (130-400); RDW Coefficient of Variation 17.6 % (11.5-14.5); RDW Standard Deviation 57.6 fL (36.4-46.3); Red Blood Count 2.32 M/uL (4.7-6.1); White Blood Count 2.36 K/uL (4.8-10.8)
[2019-05-05 20:06] LABS: BUN Creatinine Ratio 34.6 (10-20); Blood Urea Nitrogen 132 mg/dl (7-18); Calcium 7.6 mg/dl (8.5-10.1); Carbon Dioxide 11 mmol/L (21-32); Chloride 114 mmol/L (98-107); Est GFR (African American) 17.4; Glucose 172 mg/dl (70-99); Potassium 3.6 mmol/L (3.5-5.1); Sodium 139 mmol/L (136-145)
[2019-05-05 20:10] LABS: Troponin I < 0.015 ng/ml (0-0.045)
[2019-05-05] MEDS: PANTOprazole 40 MG in SYRINGE 0 ML IV SCH (20:55)
[2019-05-05] MEDS ORDERED: MIRTAZAPINE TAB 15 MG TAB PO SCH (21:00)
[2019-05-05] MEDS ORDERED: MoRPHine SULFATE 2 MG/ML CARP IV STA (21:36)
[2019-05-05] MEDS ORDERED: MoRPHine SULFATE 2 MG/ML CARP ONE (21:39)
[2019-05-05] MEDS ORDERED: CEFEPIME 1,000 MG in SYRINGE 0 ML IV SCH (23:00)
--- NOTE | 2019-05-05 23:52 | Communication Note ---
Date of Service: May 05, 2019 Was approached by nursing staff as patient family including daughter and are requesting something for the patient's complaints of pain. The patient is restless on evaluation. He is unable to localize pain and is moderately confused. I did review the entire record prior to assessment. It appears as though conversation was had today with interdisciplinary services as well as palliative care. During these discussions, the patient was made a DNR/DNI. At this point, patient remains on vasopressors x2, octreotide, Protonix, transfusions as needed, and antibiotics. Despite this, the patient has increasing need for vasopressor support. He is increasingly agitated and confused. His abdomen remains distended with ascites, however no significant increase noted at this time. I had an extensive conversation with family at bedside regarding goals of care at this point. I did discuss treating him with pain medications as apparently staff earlier in the day had mentioned that they would be unable to provide pain medication secondary to the patient's labile blood pressures. I did note that this certainly could be a side effect, but that my main concern was that starting medications in the patient with hepatic and renal failure would be clearance of medications and decreased level of consciousness. I discussed that starting these medications certainly may lead to ultimate decision to be made regarding progression towards comfort measures and end-of-life care. I answered all of the patient's family's questions regarding pain medication administration. He was written orders for morphine to be used as needed. Explained to the family that I would be present in the ICU for the entire night for any further questions. I have personally spent 32 minutes of critical care time in the direct management of this patient. This is a life/limb threatening event. This includes time spent evaluating patient, direct bedside care, chart review, placing orders, interpretation of diagnostic studies, discussion with consultants, patient, and family members, as well as other required patient management activities. This time is exclusive of all separately billable procedures, and teaching time and separate from and in addition to any other critical care service time. Coding Level of Care Code Critical Care sandee conwayt'l 30 min Time Spent (min) 32
[2019-05-06] MEDS ORDERED: MoRPHine SULFATE 2 MG/ML CARP ONE (00:13)
[2019-05-06] MEDS: MoRPHine SULFATE 2 MG/ML CARP IV PRN ×2 (00:13→02:06)
[2019-05-06] MEDS: NOREPINEPHRINE BIT INJ 8 MG in DEXTROSE 5% 500 ML IV SCH (00:26)
[2019-05-06 00:58] LABS: Hematocrit (blood only) 24.7 % (42-52); Hemoglobin 8.2 g/dL (14.0-18.0)
[2019-05-06] MEDS: OCTREOTIDE ACETATE 500 MCG in 0.9 % SODIUM CHLORIDE 100 ML IV SCH (01:21)
[2019-05-06] MEDS ORDERED: STAT IV Infusion **Titration per Protocol STA (02:48)
--- NOTE | 2019-05-06 02:50 | Communication Note ---
Date of Service: May 06, 2019 At approximately 2:30 AM, I was again approached by family as they report that the current medications for pain have not been seeming to provide symptomatic relief. Additionally, they are concerned as he is more agitated and restless. Additionally, patient's daughter and had extensive discussion regarding continuation of care versus proceeding towards comfort treatment. I had an extensive conversation with patient's family at bedside. In conversation, patient's daughter and both agree that they do not feel as though he is going to "pull-through" from this condition. I offered my support of their assessment and discussed my clinical concerns given his multiple comorbidities and current disease processes. After extensive conversation and thoughtful questions which were answered to the best of my abilities, the family wished to proceed with morphine drip. I did explain to them that at this point, we will be focusing on patient's comfort and to help make him less restless, less air hungry, and more comfortable. They were in agreement with this. I did initially broach the subject of discontinuing all medications at this point as we are proceeding towards patient's ultimate demise. Due to multiple motions and decision making, this was deferred at this time, however I did offer that we would reassess this after morphine drip was instituted in the event that they change their mind. 0420: Reassessed patient and family discussion at bedside. During conversation, they are requesting more medications and to be more aggressive with comfort at this point. I did discuss with them that at this point, we do have medications that are still helping with blood pressure support as well as other underlying conditions. They are in agreement with discontinuing all medications at this time. Additionally, they are in agreement with discontinuing unnecessary laboratory draws. It is agreed upon after conversation, the patient will be complete comfort measures at this time. Additional orders were placed for alternative medications at the request of family including Ativan as well as other medications aimed at comfortable passing. Comfort cart was ordered per nursing staff. Nursing staff updated. I have personally spent 40 minutes of critical care time in the direct management of this patient. This is a life/limb threatening event. This includes time spent evaluating patient, direct bedside care, chart review, placing orders, interpretation of diagnostic studies, discussion with consultants, patient, and family members, as well as other required patient management activities. This time is exclusive of all separately billable procedures, and teaching time and separate from and in addition to any other critical care service time. Coding Level of Care Code Critical Care 1st 30-74 mins Time Spent (min) 40
[2019-05-06] MEDS ORDERED: MoRPHine BOLUS FROM BAG IV ONE (03:00)
[2019-05-06] MEDS ORDERED: MoRPHine SULF/NSS 250 MG/250 ML BTL IV SCH (03:00)
[2019-05-06 03:15] LABS: Hematocrit (blood only) 23.9 % (42-52); Hemoglobin 7.9 g/dL (14.0-18.0); Mean Corpuscular Hemoglobin 29.3 pg (25-34); Mean Corpuscular Hgb Conc 33.1 g/dL (32-36); Mean Corpuscular Volume 88.5 fL (80-100); Nucleated RBC # (auto) 0.02 K/uL (0-0); Nucleated RBC % (auto) 0.7 %; RDW Coefficient of Variation 17.2 % (11.5-14.5); RDW Standard Deviation 54.7 fL (36.4-46.3); White Blood Count 3.32 K/uL (4.8-10.8)
[2019-05-06 03:27] LABS: Mean Platelet Volume 10.3 fL (7.4-10.4); Platelet Count 55 K/uL (130-400)
[2019-05-06 03:32] LABS: BUN Creatinine Ratio 31.9 (10-20); Calcium 7.5 mg/dl (8.5-10.1); Creatinine Clr Calc Pharmacy 17.4 ml/min; Est GFR (African American) 16.8; Est GFR (Non-African American) 14.5; Magnesium 1.4 mg/dl (1.8-2.4); Potassium 3.6 mmol/L (3.5-5.1)
[2019-05-06 03:33] LABS: Phosphorus 5.9 mg/dl (2.5-4.9)
[2019-05-06 03:42] LABS: Echinocytes 1+; Eosinophils # (auto) 0.02 K/uL (0-0.5); Eosinophils % (auto) 0.6 %; Immature Granulocytes # (auto) 0.01 K/uL (0.00-0.02); Immature Granulocytes % (auto) 0.3 %; Lymphocytes % (auto) 18.1 %; Monocytes # (auto) 0.31 K/uL (0.11-0.59); Monocytes % (auto) 9.3 %; Neutrophils # (auto) 2.38 K/uL (1.4-6.5); Neutrophils % (auto) 71.7 %
[2019-05-06] MEDS ORDERED: ATROPINE SULFATE 1% OP SOLN 2 ML BTL SL PRN (04:23)
[2019-05-06] MEDS ORDERED: LORazepam 0.5 MG/1 ML VIAL IV PRN (04:23)
[2019-05-06] MEDS ORDERED: ONDANSETRON 4 MG OD TAB SL PRN (04:23)
[2019-05-06] MEDS ORDERED: ONDANSETRON INJ 2 MG/ML 2 ML VIAL IV PRN (04:23)
[2019-05-06] MEDS ORDERED: LORazepam 0.5 MG TAB PO PRN (04:23)
[2019-05-06 06:12] LABS: Estimated Average Glucose 117 mg/dl; Hemoglobin A1C 5.7 % (4.5-5.6)
[2019-05-06] MEDS: UNIT DOSE COMPOUND PR SCH ×2 (06:37→07:57)
[2019-05-06] MEDS: LACTULOSE 200 GM, WATER, STERILE IRRIG 700 ML, BARCODE IDENTIFIER 1 EA PR SCH ×2 (06:37→07:58)
[2019-05-06] MEDS: PANTOprazole 40 MG in SYRINGE 0 ML IV SCH (07:57)
[2019-05-06] MEDS: SODIUM BICARBONATE 8.4% 150 MEQ in DEXTROSE 5% 1,000 ML IV SCH (07:59)
[2019-05-06] MEDS ORDERED: PANTOprazole 40 MG TAB PO SCH (09:00)
--- NOTE | 2019-05-06 09:09 | Critical Care Progress Note ---
Date of Service May 06, 2019 Assessment & Plan (1) Septic shock: Assessment and Plan -Septic shock secondary to unclear source (possible UTI) -Acute metabolic encephalopathy secondary to hyperammonemia and shock -Possible upper GI bleed with a history of cirrhosis -Acute anemia -JOSE possibly secondary to HRS versus ATN -Thrombocytopenia -Hypothermia from sepsis -Possible intra-abdominal hypertension Patient now is in full comfort measures. The had some questions regarding further treatment options and wished to speak with the senior commercial loan officer. We did have the senior commercial loan officer come by and discussed the case with the . She is in agreement with full comfort measures at this point. I do not suspect it will take very long for the patient to passively at this point. He does appear comfortable on a morphine drip. (2) Metabolic encephalopathy: (3) Hyperammonemia: (4) Hypervolemia: (5) Acute kidney injury superimposed on CKD: (6) Esophageal cancer, stage IV: (7) Diastolic dysfunction: (8) Acute anemia: (9) End of life care: Subjective Patient is essentially obtunded. He is laying in bed and periodically apneic. I did not wake him so as not to disturb him. I did discuss with the family regarding his situation. Physical Exam Physical Exam: Physical exam largely deferred due to the patient's Comfort Care status. He does appear comfortable and apneic at times. He is lying in bed. He is ashen. Results & Data ([facility]) Vital Signs (Past 12 Hours) Vital Signs Temp Pulse Resp BP Pulse Ox 05/06/19 08:00 71 19 05/06/19 02:00 85 29 H 81/47 L 05/06/19 01:00 86 20 127/69 99 05/06/19 00:00 86 18 112/59 L 99 05/05/19 23:45 95.9 F L 89 24 112/59 L 99 05/05/19 23:30 95.7 F L 84 27 H 117/93 100 05/05/19 22:30 95.5 F L 87 18 114/79 99 05/05/19 22:00 95.5 F L 89 19 83/63 L 98 05/05/19 21:45 95.5 F L 87 31 H 98/57 L 99 05/05/19 21:27 95.5 F L 79 21 92/66 L 99 Coding Level of Care Code Critical Care 1st 30-74 mins Diagnoses Septic shock A41.9; R65.21 Metabolic encephalopathy G93.41 Hyperammonemia E72.20 Hypervolemia E87.70 Acute kidney injury superimposed on CKD N17.9; N18.9 Esophageal cancer, stage IV C15.9 Diastolic dysfunction I51.89 Acute anemia D64.9 End of life care Z51.5 Time Spent (min) 30
--- NOTE | 2019-05-06 09:31 | Nephrology Progress Note ---
Date of Service May 06, 2019 Subjective EMR reviewed. Events of last evening noted. ICU staff has met w/ Mr. Milner's family and discussed prognosis. Family has chosen to change status to DNR/DNI and pursue comfort measures. I agree w/ their decision. Will sign off. Please call if further Nephrology assistance is needed Results & Data Vital Signs (Past 12 Hours) Vital Signs Temp Pulse Resp BP Pulse Ox 05/06/19 08:00 71 19 05/06/19 02:00 85 29 H 81/47 L 05/06/19 01:00 86 20 127/69 99 05/06/19 00:00 86 18 112/59 L 99 05/05/19 23:45 35.5 C L 89 24 112/59 L 99 05/05/19 23:30 35.4 C L 84 27 H 117/93 100 05/05/19 22:30 35.3 C L 87 18 114/79 99 05/05/19 22:00 35.3 C L 89 19 83/63 L 98 05/05/19 21:45 35.3 C L 87 31 H 98/57 L 99 PG Care Time/CCT Total # of Minutes Spent Total Time Spent with Patient: Total time spent is greater than 50% in coordination of care (as documented) at patient's floor/unit and/or counseling patient: Coding Level of Care Code 12635 Subseq Hosp Care Lvl 1
--- NOTE | 2019-05-06 09:57 | Hospitalist Progress Note ---
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 Patient in multi-organ failure. Patient quite restless and uncomfortable overnight. Family elected to stop all care and transition to comfort care measures. Plan - comfort care pathway including morphine infusion. Palliative care consultation for support. Family requested auto clocks repairer - asked placement secretary to contact local [facility] for such. d/c ICU status; move to med/surg. 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 patient now comfort care on morphine infusion. all supportive care is d/c. , children at bedside; questions answered. Review of Systems Review of Systems: Unobtainable due to reduced consciousness Physical Exam Constitutional: + ill appearing; no acute distress apneas noted ENMT: Mouth: + dry oral mucous membranes Respiratory: no respiratory distress Auscultation: + diminished lung sounds (bases) Cardiovascular: Rate/Rhythm: regular rate and regular rhythm Heart Sounds: normal S1 and normal S2; no murmur Extremities: no edema Gastrointestinal (Abdomen): normal bowel sounds, soft, nontender, no hepatosplenomegaly Psychiatric: Orientation: + not alert (obtunded ) and + not oriented x 3 Results & Data ([facility]) Vital Signs (Past 12 Hours) Vital Signs Temp Pulse Resp BP Pulse Ox 05/06/19 08:00 71 19 05/06/19 02:00 85 29 H 81/47 L 05/06/19 01:00 86 20 127/69 99 05/06/19 00:00 86 18 112/59 L 99 05/05/19 23:45 35.5 C L 89 24 112/59 L 99 05/05/19 23:30 35.4 C L 84 27 H 117/93 100 05/05/19 22:30 35.3 C L 87 18 114/79 99 05/05/19 22:00 35.3 C L 89 19 83/63 L 98 Laboratory Results Laboratory Results - last 24 hr 05/05/19 05/06/19 05/06/19 15:46 03:06 03:06 Peripher Smr Path Cons Sodium 140 Potassium 3.6 Chloride 115 H Carbon Dioxide 11 L Anion Gap 14.0 H BUN 126 H Creatinine 3.94 H Est Cr Clr Drug Dosing 17.4 Est GFR ( Amer) 16.8 Est GFR (Non-Af Amer) 14.5 BUN/Creatinine Ratio 31.9 H Glucose 191 H Estimat Average Glucose 117 Hemoglobin A1c 5.7 H Calcium 7.5 L Phosphorus 5.9 H Magnesium 1.4 L PG Care Time/CCT Total # of Minutes Spent Total Time Spent with Patient: Total time spent is greater than 50% in coordination of care (as documented) at patient's floor/unit and/or counseling patient: Coding Level of Care Code 08828 Subseq Hosp Care Lvl 2 Diagnoses Palliative care patient Z51.5 Acute anemia D64.9 Acute kidney injury superimposed on CKD N17.9; N18.9 Hyperammonemia E72.20 Metabolic encephalopathy G93.41 Septic shock A41.9; R65.21 Protein malnutrition E46 Hypomagnesemia E83.42 Hypothyroid E03.9 Metastatic cancer C79.9 Metabolic acidosis E87.2 Ascites R18.8 Peripheral arterial disease I73.9 Diastolic dysfunction I51.89 CKD (chronic kidney disease) stage 3, GFR 30-59 ml/min N18.3 Coronary artery disease I25.10 Esophageal cancer, stage IV C15.9 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
--- NOTE | 2019-05-06 17:12 | Palliative Care Progress Note ---
Date of Service May 06, 2019 Assessment & Plan (1) Goals of care, counseling/discussion: -Provided support to patient's and daughter at bedside. -We discussed patient's current level of comfort-patient's commented about him being "doped up"-asked if he thought he was receiving too much medication- she replied no. Daughter replied he was very uncomfortable overnight and feel that he is comfortable on current morphine drip at 8 mg an hour. - continues to struggle with patient's decline and nearing end-of-life -We will continue to follow along and provide support to family. -PPS 10%. Collaborated with attending physician, Dr. Browning (2) Septic shock: (3) Acute anemia: (4) Metabolic encephalopathy: (5) Hyperammonemia: (6) Protein malnutrition: (7) Esophageal cancer, stage IV: Subjective Patient seen and examined, patient's and daughter at bedside. Patient is currently on comfort care, unresponsive, nearing end-of-life. Review of Systems Review of Systems: Unobtainable due to reduced consciousness Physical Exam Physical Exam: PE: Patient unresponsive to voice or touch HEENT: No facial grimace, dried blood easily visible in oropharynx, dry mucous membranes Respirations: Unlabored CV: Regular rate Extremities: Toes on right cool to touch Neuro: Unresponsive to voice or touch Results & Data Vital Signs (Past 12 Hours) Vital Signs Pulse Resp 05/06/19 08:00 71 19 PG Care Time/CCT Total # of Minutes Spent Total Time Spent with Patient: Total time spent 35 minutes with greater than 50% of the time spent at bedside assessing patient's current comfort level and discussing patient's current care with and daughter at bedside Coding Level of Care Code 48051 Subseq Hosp Care Lvl 3 Diagnoses Goals of care, counseling/discussion Z71.89 Septic shock A41.9; R65.21 Acute anemia D64.9 Metabolic encephalopathy G93.41 Hyperammonemia E72.20 Protein malnutrition E46 Esophageal cancer, stage IV C15.9 Time Spent (min) 35
--- NOTE | 2019-05-16 12:01 | Discharge Summary ---
Date of Service May 16, 2019 Admission HPI Per Admitting Provider 68 y/o M who was brought to the ED via ambulance for concerns over worsening AMS. states that pt has been making confusing statements the last few days. She states she thought this might be related to his ongoing chemo as she had been told that chemo can cause some mild confusion. His last tx was 04/26 with plans for next (and last) tx on 05/10. states that this has worsened yesterday to where pt was not talking at all and appeared to not hear her speak with him. She states she thought he was maybe upset with her and just ignoring her, but then she asked him something directly behind him today and he did not appear to hear her at all. She was trying to help him ambulate to the bathroom with his walker and she states that he appeared very unsteady on his feet, which is new today. It was then that she realized he could not hear her and call for an ambulance. states that pt's PO intake has been low the last few weeks. He has tolerated what he does eat, but it is minimal. She does manage to get him to take a Boost daily, but he would not take that yesterday. She states that today he seemed to be breathing into his abd more. Pt has scheduled paracentesis. He was on a Qweek schedule for this, but was doing better last week, so this was not done. His next paracentesis was supposed to be today at [facility]. states that abd is more distended than usual. denies noting or pt c/o fever, chest pain, abd pain, n/v/c/d, LE pain or swelling. states that pt's color is already improved and his interactions are more to his usual. He is answering questions and talking with them now. She feels he looks better, but not his baseline. Pt did not get his AM meds today due to above, but has been taking them otherwise. Discharge Data Consultations 05/05/19 10:55 ED Decision to Admit Stat 05/05/19 11:18 Consult Mutton Puncher Stat 05/05/19 13:06 Consult Case Management - Discharge Planning Routine Consult Mutton Puncher Routine 05/05/19 14:38 Consult Palliative Care Routine 05/05/19 14:46 Consult Gastroenterology Routine 05/05/19 14:59 Consult Gastroenterology Routine Hospital Course (1) Palliative care patient: 68yo male with presumed septic shock on pressors, metabolic encephalopathy (likely multifactorial including hepatic encephalopathy as ammonia is high), acute renal failure in setting of CKD, anemia with possible GI bleeding, 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 Patient in multi-organ failure. Patient quite restless and uncomfortable overnight. Family elected to stop all care and transition to comfort care measures. Plan - comfort care pathway including morphine infusion. Palliative care consultation for support. Family requested journeyman painter - asked marketing secretary to contact local [facility] for such. d/c ICU status; move to med/surg. (2) Acute anemia: (3) Acute kidney injury superimposed on CKD: (4) Hyperammonemia: (5) Metabolic encephalopathy: (6) Septic shock: (7) Protein malnutrition: Albumin x2 in the ED Nutrition eval Monitor (8) Hypomagnesemia: Replace and monitor (9) Hypothyroid: continue home meds (10) Metastatic cancer: Esophageal ca with mets to brain, liver ?? mets to lungs on CTAP Follows with Dr. Dawn at [facility] if needed Last chemo was 04/26 with plans for next and final chemo on 05/10 s/p radiation to brain (11) Metabolic acidosis: (12) Ascites: Hx of scheduled paracentesis and was due for this today at [facility] Hold on this for now given BP, but will likely need addressed prior to d/c Ascites is related to cirrhosis resulting from liver mets (13) Peripheral arterial disease: (14) Diastolic dysfunction: (15) CKD (chronic kidney disease) stage 3, GFR 30-59 ml/min: Monitor Baseline cr 1.[address] 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: (19) Diabetes mellitus: SSI PRN A1c pending Holding home insulin Coding Diagnoses Palliative care patient Z51.5 Acute anemia D64.9 Acute kidney injury superimposed on CKD N17.9; N18.9 Hyperammonemia E72.20 Metabolic encephalopathy G93.41 Septic shock A41.9; R65.21 Protein malnutrition E46 Hypomagnesemia E83.42 Hypothyroid E03.9 Metastatic cancer C79.9 Metabolic acidosis E87.2 Ascites R18.8 Peripheral arterial disease I73.9 Diastolic dysfunction I51.89 CKD (chronic kidney disease) stage 3, GFR 30-59 ml/min N18.3 Coronary artery disease I25.10 Esophageal cancer, stage IV C15.9 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
--- NOTE | 2019-05-16 12:08 | Discharge Summary ---
Date of Service date of admission - May 05, 2019 date of - May 07, 2019 @ 0300 Admission HPI Per Admitting Provider 68 y/o M who was brought to the ED via ambulance for concerns over worsening AMS. states that pt has been making confusing statements the last few days. She states she thought this might be related to his ongoing chemo as she had been told that chemo can cause some mild confusion. His last tx was 04/26 with plans for next (and last) tx on 05/10. states that this has worsened yesterday to where pt was not talking at all and appeared to not hear her speak with him. She states she thought he was maybe upset with her and just ignoring her, but then she asked him something directly behind him today and he did not appear to hear her at all. She was trying to help him ambulate to the bathroom with his walker and she states that he appeared very unsteady on his feet, which is new today. It was then that she realized he could not hear her and call for an ambulance. states that pt's PO intake has been low the last few weeks. He has tolerated what he does eat, but it is minimal. She does manage to get him to take a Boost daily, but he would not take that yesterday. She states that today he seemed to be breathing into his abd more. Pt has scheduled paracentesis. He was on a Qweek schedule for this, but was doing better last week, so this was not done. His next paracentesis was supposed to be today at [facility]. states that abd is more distended than usual. denies noting or pt c/o fever, chest pain, abd pain, n/v/c/d, LE pain or swelling. states that pt's color is already improved and his interactions are more to his usual. He is answering questions and talking with them now. She feels he looks better, but not his baseline. Pt did not get his AM meds today due to above, but has been taking them otherwise. Principal Diagnosis septic shock, acute renal failure, metabolic encephalopathy in the setting of stage 4 esophageal cancer -- transition to palliative care/comfort care measures with subsequent natural Discharge Data Allergies Allergy/AdvReac Type Severity Reaction Status Date / Time Penicillins Allergy Intermediate HIVES Verified 04/22/19 10:28 Consultations Senior Database Programmer Palliative Care Gastroenterology Ordered Studies CT abd pelvis wo con Stat CT head/brain wo con Stat Hospital Course (1) Palliative care patient: 68yo male who presented with likely septic shock requiring pressors, metabolic encephalopathy (likely multifactorial including hepatic encephalopathy as ammonia was high), acute renal failure in setting of CKD, anemia with possible GI bleeding, 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 In the midst of his septic shock he developed multi-organ failure. He was admitted to the ICU for such. The patient's family ultimately elected to stop all care and transition to comfort care measures. Support was given to the family via the palliative care team. A comfort care pathway including morphine infusion was instituted. All medical therapies except comfort care measures were stopped. He was moved from the ICU to the medical floor. The patient passed peacefully on the AM of 05/07/2019 at 0300. (2) Septic shock: (3) Acute kidney injury superimposed on CKD: Creatinine 4.2 at admission (4) Hyperammonemia: (5) Metabolic encephalopathy: (6) Metastatic cancer: Esophageal ca with mets to brain, liver Possible mets to lungs on chest imaging (7) Acute anemia: (8) Protein malnutrition: severe protein calorie malnutrition (9) Hypomagnesemia: (10) Hypothyroid: (11) Metabolic acidosis: (12) Ascites: Ascites was related to cirrhosis resulting from liver mets (13) Peripheral arterial disease: (14) Diastolic dysfunction: (15) CKD (chronic kidney disease) stage 3, GFR 30-59 ml/min: Baseline cr 1.45 (16) Coronary artery disease: CABG in 1990 (17) Esophageal cancer, stage IV: (18) 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: (19) Diabetes mellitus: Total Time Total Time Spent Total Time Spent (In Minutes): 25 Discharge Plan Discharge Items Patient Disposition: Reason For Visit: [facility] Follow-up/Referrals: Valerie Mullins DO [Primary Care Provider] - Admission Data Admit Date/Time: 05/05/19 11:58 Other DC Date/Time DO NOT enter until pt leaves facility: 05/07/19 05:00 Coding Level of Care Code None Diagnoses Palliative care patient Z51.5 Septic shock A41.9; R65.21 Acute kidney injury superimposed on CKD N17.9; N18.9 Hyperammonemia E72.20 Metabolic encephalopathy G93.41 Metastatic cancer C79.9 Acute anemia D64.9 Protein malnutrition E46 Hypomagnesemia E83.42 Hypothyroid E03.9 Metabolic acidosis E87.2 Ascites R18.8 Peripheral arterial disease I73.9 Diastolic dysfunction I51.89 CKD (chronic kidney disease) stage 3, GFR 30-59 ml/min N18.3 Coronary artery disease I25.10 Esophageal cancer, stage IV C15.9 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
--- NOTE | 2019-05-16 12:31 | Death Pronouncement Note ---
Date of Service May 07, 2019 Pronouncement Note Admission Date Admission Date: May 05, 2019 Date and Time of Date of : 05/07/19 Time of : 03:00 PCOD Preliminary cause of : Septic shock Contributing Factors (1) Palliative care patient: (2) Septic shock: (3) Acute kidney injury superimposed on CKD: (4) Hyperammonemia: (5) Metabolic encephalopathy: (6) Metastatic cancer: (7) Acute anemia: (8) Protein malnutrition: (9) Hypomagnesemia: (10) Hypothyroid: (11) Metabolic acidosis: (12) Ascites: (13) Peripheral arterial disease: (14) Diastolic dysfunction: (15) CKD (chronic kidney disease) stage 3, GFR 30-59 ml/min: (16) Coronary artery disease: (17) Esophageal cancer, stage IV: (18) 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
== END 2019-05-07 05:00 | disposition expired | DRG 871 ==
LOC: ED 09:20 → SUATTDRO 11:58 → 1E 11:58 → 3W 05-06 09:55